=== PATIENT | female | born 1960 | race Caucasian/White ===

== ENCOUNTER 2016-09-07 14:45 | Emergency (ER) | payer MEDICARE, MEDICAID ==
[~2016-09-07] VITALS: Ht 162.6 cm; Wt 84.1 kg
[2016-09-07 14:49] VITALS: BP 101/42; PULSE 86; RESP 15; O2SAT 94
--- NOTE | 2016-09-07 15:06 | ED.REPORT ---
HPI-General Illness Date of Service Sep 07, 2016 ED Provider: Dr. Lozano Pt is a 56 y/o female presenting to the ED via EMS from [facility] where she is rehabbing from a hip fracture suffered 4 weeks ago for AMS 4 hours ago. The patient's relates that shortly after administration of her noon meds which include Gabapentin, Oxycodone, and Oxycontin she became quite agitated and combative, saying that her and care givers were trying to poison her and expressing confusion about where she was and why she was not at home. The patient's mentation cleared gradually over the course of the next few hours. She has full recollection of the event, and feels somewhat sheepish about her behavior. She denies chest pain, dysuria, alterations in bowel or bladder habits, SOB, headache, or changes in vision or sensation. She states that she currently feels well and is anxious to leave the hospital. Nursing Notes Stated Complaint: CONFUSION Chief Complaint: General Complaint Nursing Notes Reviewed: Yes Allergies: Coded Allergies: Penicillins (Verified Allergy, Unknown, 09/07/16) isradipine (Verified Allergy, Unknown, 09/07/16) latex (Verified Allergy, Unknown, 09/07/16) General Time Seen by MD: 15:06 Transferred From: snf Chief Complaint Altered mental status Hx Obtained From: Patient, Spouse Arrived By: Ambulance Sudden in Onset?: Yes Onset Occurred: 1 - 4 hours ago Symptom Duration: 16 - 30 minutes Severity: Current: Moderate Severity: Maximum: Severe Recent Healthcare: Recent hospitalization Similar Sx Previous: No Past Medical History Past Medical History Hypertension Anxiety Chronic pain DM2 Hip Fracture Review of Systems Full Review of Systems Musculoskeletal: Reports: Joint pain Psychiatric: Reports: Agitation Complete sys rev & neg: except as marked. Physical Exam Gen: A/O x3 pleasant cooperative somewhat frustrated woman in NAD Neck: Supple, non tender, no thyromegaly HEENT: PERRL, EOMI, mucous membranes dry, moderate conjunctival pallor CV: RRR, mild 2/6 systolic ejection murmur, no rubs or gallops Resp: Lungs CTA BL, no wheezing rales rhonchi Abdomen: Soft, non tender, no organomegaly Extr: Large bruise on L upper arm, no cyanosis clubbing or edema, healing surgical scar on Left hip Neuro: CN 2-12 intact, mild nasal labial fold asymmetry which could be dependent due to chronic left leaning, no focal neurologic deficit, Strength and sensation intact BL with the exception of right leg secondary to fracture. Psych: Somewhat nervous and anxious to leave the hospital. Vital Signs Vital Signs Date Time Temp Pulse Resp B/P Pulse Ox O2 Delivery O2 Flow Rate FiO2 09/07/16 18:36 91 136/92 95 Room Air 09/07/16 18:33 91 136/92 95 Room Air 09/07/16 17:39 87 12 116/38 95 Room Air 09/07/16 14:49 36.5 86 15 101/42 94 Room Air Initial VS: Reviewed Interpretation & Diagnostics Lab Results Interpretation Result Diagram: 09/07/16 1525 09/07/16 1532 Test 09/07/16 15:25 09/07/16 15:32 09/07/16 17:29 White Blood Count 13.9th/mm3 (3.8-10.1) Red Blood Count 2.48mil/mm3 (3.90-5.20) Hemoglobin 7.3g/dL (12.0-15.6) Hematocrit 24.9% (35.0-46.0) Mean Corpuscular Volume 100.4fL (81-100) Mean Corpuscular Hemoglobin 29.4pg (27.0-35.0) Mean Corpuscular Hemoglobin Concent 29.3% (32.0-37.0) Red Cell Distribution Width 13.6% (12.3-15.4) Platelet Count 476bil/L (150-400) Neutrophils (%) (Auto) 61.8% (40-74) Lymphocytes (%) (Auto) 24.1% (14-46) Monocytes (%) (Auto) 9.5% (4-12) Eosinophils (%) (Auto) 3.8% (0-5) Basophils (%) (Auto) 0.4% (0-3) Sodium Level 142mEq/L (134-144) Potassium Level 5.2mEq/L (3.5-5.2) Chloride Level 106mEq/L (97-108) Carbon Dioxide Level 23mmol/L (18-29) Blood Urea Nitrogen 30mg/dL (6-24) Creatinine 1.39mg/dL (0.57-1.00) Estimat Glomerular Filtration Rate 56mL/min (>59) Glucose Level 189mg/dL (60-99) Calcium Level 8.6mg/dL (8.5-10.1) Total Bilirubin 0.2mg/dL (0.0-1.2) Aspartate Amino Transf (AST/SGOT) 45U/L (0-50) Alanine Aminotransferase (ALT/SGPT) 45U/L (0-32) Alkaline Phosphatase 140U/L (25-150) Total Protein 5.0g/dL (6.4-8.4) Albumin 2.2g/dL (3.4-5.0) Hold [place] Top Tube Received (Received) Urine Color Yellow (YELLOW) Urine Appearance Clear (CLEAR,HAZY) Urine pH 5.5 (5.0-8.0) Urine Specific [place] 1.025 (1.003-1.035) Urine Protein 100mg/dL (NEG,TRACE) Urine Glucose (UA) Negativemg/dL (NEGATIVE) Urine Ketones Negativemg/dL (NEGATIVE) Urine Occult Blood Small (NEGATIVE) Urine Nitrite Negative (NEGATIVE) Urine Bilirubin Negative (NEGATIVE) Urine Urobilinogen Normalmg/dL (NORMAL) Urine Leukocyte Esterase Negative (NEGATIVE) Urine RBC 3-10/hpf (0-2) Urine WBC 0-5/hpf (0-5) Urine Epithelial Cells Few/hpf (NONE-MOD) Urine Crystals None seen (NONE SEEN) Urine Bacteria Moderate/hpf (NONE-FEW) Urine Hyaline Casts None/lpf (NONE) Urine Granular Casts None seen (NONE SEEN) Urine Waxy Casts None seen (NONE SEEN) Urine Red Blood Cell Casts None seen (NONE SEEN) Urine White Blood Cell Casts None seen (NONE SEEN) Urine Mucus None seen (None Seen) Urine Trichomonas None seen (NONE SEEN) Urine Yeast None (NONE SEEN) Urinalysis Comment Amorphous sediment Urine Culture Reflexed Indicated Lab Results Interpretation: Significant likely iron deficiency anemia, chronic and unchanged from CBC taken 1 week ago. Thrombocytosis likely due to iron deficiency Re-Eval/Medical Decision Med Decision/Clinical Course Patient with presenting post acute episode of AMS, Patient has full recollection of the event and no lingering deficit which would render a Head CT low yield. Remainder of laboratory examination unremarkable or unchanged from baseline, she does have very significant iron deficiency anemia but is refusing a blood transfusion and IV iron despite counseling the her PO iron is unlikely to be well absorbed given her history of gastric bypass. Overall her presentation is consistent with adverse reaction to opiate analgesia , she may benefit from an alteration in her dosing, frequency, or specific medication used to control her pain. We recommend that she follows up with her primary care provider for optimization of her analgesia regimen. Patient was given Follow up instructions and return precautions prior to DC. Counseled Regarding: Diagnosis, Lab results, Need for follow-up, When/why to return to ED Discharge & Departure Shift Change Sign-Out Patient Care Transferred: No Discussed Complaint(s): Yes Laboratory Evaluation: Lab evaluation discussed Primary Impression: Adverse drug reaction Encounter type: initial encounter Qualified Code: T88.7XXA - Unspecified adverse effect of drug or medicament, initial encounter Disposition: Home Discharge Condition All VS Reviewed: Yes Condition: Stable Patient Instructions: Pain Management and Opioids (ED) Additional Instructions: It appears that you have had an bad reaction to your pain meds. We recommend that you limit you dosing to 5 mg of oxycodone per dosing until you speak with the doctor who provides you with your opiate prescriptions. We recommend alteration of the dosing, frequency, or type of pain medication used in order to avoid similar episodes in the future. If you experience any difficulties in speech or vision, asymmetry in your face, weakness or tingling on one side of your body, or any concerning changes in mentation please return to the ER for further evaluation. Referrals: Shasha Sharif PA-C (PCP) Verna Attestation Portions of this note were transcribed by Jem Johnson. I, Dr. Lozano, personally performed the history, physical exam and medical decision-making; I reviewed and confirmed the accuracy of the information in the transcribed note. Signed by Verna Kebede, 09/07/16 - 1520 Attending Statement The patient was seen and examined together with Dr. Hines on 09/08/16 I agree with the history, exam and plan as outlined in the note above. copies to: Shasha Sharif PA-C, Timothy Chuy WILHELM Sep 07, 2016 15:06 JEM JOHNSON Sep 07, 2016 15:13 Lazaro Hines DO Sep 07, 2016 16:12
[2016-09-07 15:32] LABS: BASOPHILS % (AUTO) 0.4 % (0-3); EOSINOPHILS % (AUTO) 3.8 % (0-5); MONOCYTES % (AUTO) 9.5 % (4-12); Mean Corpuscular Hemoglobin 29.4 pg (27.0-35.0); Mean Corpuscular Volume 100.4 fL (81-100); NEUTROPHILS % (AUTO) 61.8 % (40-74); Platelet Count 476 bil/L (150-400)
--- NOTE | 2016-09-07 15:40 | DRSVH ---
PROCEDURE: X-RAY CHEST ONE VIEW, PORTABLE ([id number]) INDICATIONS: change in mentation TECHNIQUE: One view of the chest was acquired. COMPARISON: [facility], CR, XR CHEST 1V PORTABLE, 01/26/2016, 7:55 PM. FINDINGS: Surgical changes and devices: There is cervical spine fusion. Lungs and pleura: No pleural effusions or pneumothorax. Lungs are clear. Mediastinum: Mediastinal contours appear normal. Heart size is normal. Bones and chest wall: No suspicious bony lesions. Overlying soft tissues appear unremarkable. IMPRESSION: No acute cardiopulmonary disease. Dictated by: Sharon Brink M.D. on 09/07/2016 at 15:30 Approved by: Sharon Brink M.D. on 09/07/2016 at 15:31
[2016-09-07 17:39] VITALS: BP 116/38; PULSE 87; RESP 12; O2SAT 95
[2016-09-07 17:48] LABS: APPEARANCE,URINE CLEAR (CLEAR,HAZY); COLOR,URINE YELLOW (YELLOW); OCCULT BLOOD,URINE SMALL (NEGATIVE); PH,URINE 5.5 (5.0-8.0)
[2016-09-07 17:49] LABS: UROBILINOGEN,URINE NORMAL (NORMAL)
[2016-09-07 18:33] VITALS: BP 136/92; PULSE 91; O2SAT 95
[2016-09-07 18:36] VITALS: BP 136/92; PULSE 91; O2SAT 95
== END 2016-09-07 18:37 | disposition home or self-care (01) ==
LOC: SED 14:45 → EDBD 14:45 → SED 18:37
DX: R41.82 Altered mental status, unspecified (principal); R45.1 Restlessness and agitation; R41.0 Disorientation, unspecified; T43.8X5A Adverse effect of other psychotropic drugs, initial encounter; T40.2X5A Adverse effect of other opioids, initial encounter; Y93.89 Activity, other specified; Y92.89 Other specified places as the place of occurrence of the external cause; Y99.8 Other external cause status; I10 Essential (primary) hypertension; E11.9 Type 2 diabetes mellitus without complications; Z88.0 Allergy status to penicillin; Z88.8 Allergy status to other drugs, medicaments and biological substances; Z91.040 Latex allergy status

== ENCOUNTER 2016-12-15 06:34 | Inpatient (IN) | payer MEDICARE, MEDICAID ==
[2016-12-15] VITALS (12 sets, daily range): BP systolic 115–188; BP diastolic 52–103; PULSE 83–118; RESP 15–20; O2SAT 89–97
[~2016-12-15] VITALS: Ht 163.8 cm; Wt 78.3 kg
--- NOTE | 2016-12-15 06:39 | ED.REPORT ---
HPI-General Illness Date of Service Dec 15, 2016 ED Provider: Kiel Lozano MD The pt is a 56 y/o female w/ a hx of diabetes and HTN presenting to the ED complaining of general unwellness onset two days ago. She is experiencing nausea , thick black diarrhea, dysuria, chills, urinary incontinence, and reports having the beginning of an UTI. Denies fever, SOB. The pt's son had a recent head cold and she also had hip surgery in October, was in [facility] for 3 months, and was released 5 weeks ago. Nursing Notes Stated Complaint: WEAKNESS Chief Complaint: Not feeling well Nursing Notes Reviewed: Yes Allergies: Coded Allergies: Penicillins (Verified Allergy, Unknown, 09/07/16) isradipine (Verified Allergy, Unknown, 09/07/16) latex (Verified Allergy, Unknown, 09/07/16) sulfamethoxazole (Verified Allergy, Unknown, hyperkalemia, 12/15/16) trimethoprim (Verified Allergy, Unknown, hyperkalemia, 12/15/16) Miscellaneous Medications Hydrochlorothiazide (Hydrochlorothiazide) 12.5 Mg Tablet Hydromorphone (Hydromorphone) 2 Mg Tablet Insulin Glargine,Hum.rec.anlog (Toujeo Solostar) 300 Unit/Ml (1.5 Ml) Insuln.pen Losartan Potassium (Losartan Potassium) 25 Mg Tablet Lovastatin (Lovastatin) 20 Mg Tablet Nortriptyline (Nortriptyline) 75 Mg Capsule Sitagliptin Phos (Januvia) 100 Mg Tablet Tizanidine (Tizanidine) 4 Mg Tablet Venlafaxine ER (Venlafaxine ER) 150 Mg Cap.er.24h hydrOXYzine Hcl (HydrOXYzine Hcl) 25 Mg Tablet oxyCODONE (oxyCODONE) 5 Mg Tablet oxyCODONE-Acetaminophen 7.5-325 mg (oxyCODONE-Acetaminophen 7.5-325 mg) 1 Each Tablet General Time Seen by MD: 06:38 Chief Complaint Not feeling well Hx Obtained From: Patient Arrived By: Walk-in Sudden in Onset?: Yes Onset Occurred: 2 days ago Symptom Duration: Since onset Recent Healthcare: No recent hospitalization, Recent doctor visit Past Medical History Past Medical History Hypertension Anxiety Chronic pain DM2 Hip Fracture Past Surgical History Hip surgery Smoking History Unknown if Ever Smoker Social History Other Social History: Good social support Ambulatory Status Independent Review of Systems Full Review of Systems Constitutional: Reports: Chills, Denies: Fever Respiratory: Denies: Shortness of breath GI: Reports: Diarrhea, Nausea Female: Reports: Dysuria, Incontinence Complete sys rev & neg: except as marked. Physical Exam Vital Signs Vital Signs Date Time Temp Pulse Resp B/P Pulse Ox O2 Delivery O2 Flow Rate FiO2 12/15/16 09:19 91 15 152/70 96 Room Air 12/15/16 08:02 95 20 142/70 97 Room Air 12/15/16 06:39 37.4 98 20 134/52 Room Air Initial VS: Reviewed General/Constitutional: Awake, Alert Appearance / Presentation: Positive: Obese, Pale Head / Eyes: Atraumatic, Normocephalic ENT: Atraumatic, Airway patent, Mucous membranes moist Neck: Atraumatic, Full range of motion Respiratory / Chest: Atraumatic, Breath sounds NL, Breath sounds = bilat, No respiratory distress, No rales, No rhonchi, No wheezing Cardiovascular: Heart rate NL, Regular rhythm, Heart sounds NL Abdomen: Soft Tenderness/Guarding/Rebound: Positive: Tender suprapubic Back: Atraumatic, Full range of motion Upper Extremities Upper Extremity / MS: Atraumatic, Inspection NL, Full range of motion Lower Extremity / Pelvis / MS: Atraumatic, Inspection NL, Full range of motion Skin: No rash, Warm, Dry Rectum / Perineum: Atraumatic, No gross blood Brown stools Guaiac negative Neurologic: Oriented X3, Speech NL Psychiatric: Affect NL, Mood NL Interpretation & Diagnostics Lab Results Interpretation Result Diagram: 12/15/16 0715 12/15/16 0715 Test 12/15/16 07:08 12/15/16 07:15 Urine Color Yellow (YELLOW) Urine Appearance Slightly cloudy Urine pH 6.0 (5.0-8.0) Urine Specific [place] 1.020 (1.003-1.035) Urine Protein 300mg/dL (NEG,TRACE) Urine Glucose (UA) Negativemg/dL (NEGATIVE) Urine Ketones Negativemg/dL (NEGATIVE) Urine Occult Blood Moderate (NEGATIVE) Urine Nitrite Negative (NEGATIVE) Urine Bilirubin Negative (NEGATIVE) Urine Urobilinogen Normalmg/dL (NORMAL) Urine Leukocyte Esterase Moderate (NEGATIVE) Urine RBC 3-10/hpf (0-2) Urine WBC >50/hpf (0-5) Urine Epithelial Cells Occasional/hpf (NONE-MOD) Urine Crystals None seen (NONE SEEN) Urine Bacteria Many/hpf (NONE-FEW) Urine Hyaline Casts None/lpf (NONE) Urine Granular Casts None seen (NONE SEEN) Urine Waxy Casts None seen (NONE SEEN) Urine Red Blood Cell Casts None seen (NONE SEEN) Urine White Blood Cell Casts None seen (NONE SEEN) Urine Mucus None seen (None Seen) Urine Trichomonas None seen (NONE SEEN) Urine Yeast None (NONE SEEN) Urinalysis Comment None Urine Culture Reflexed Indicated White Blood Count 38.3th/mm3 (3.8-10.1) Red Blood Count 3.94mil/mm3 (3.90-5.20) Hemoglobin 11.5g/dL (12.0-15.6) Hematocrit 35.5% (35.0-46.0) Mean Corpuscular Volume 90.1fL (81-100) Mean Corpuscular Hemoglobin 29.2pg (27.0-35.0) Mean Corpuscular Hemoglobin Concent 32.4% (32.0-37.0) Red Cell Distribution Width 14.3% (12.3-15.4) Platelet Count 211bil/L (150-400) Neutrophils (%) (Auto) 80.1% (40-74) Lymphocytes (%) (Auto) 8.3% (14-46) Monocytes (%) (Auto) 10.5% (4-12) Eosinophils (%) (Auto) 0% (0-5) Basophils (%) (Auto) 0.2% (0-3) Sodium Level 142mEq/L (134-144) Potassium Level 4.8mEq/L (3.5-5.2) Chloride Level 104mEq/L (97-108) Carbon Dioxide Level 20mmol/L (18-29) Blood Urea Nitrogen 35mg/dL (6-24) Creatinine 1.46mg/dL (0.57-1.00) Estimat Glomerular Filtration Rate 53mL/min (>59) Glucose Level 150mg/dL (60-99) Lactic Acid Level 1.2mmol/L (0.4-2.0) Calcium Level 9.2mg/dL (8.5-10.1) Magnesium Level 1.4mg/dL (1.6-2.6) Total Bilirubin 0.5mg/dL (0.0-1.2) Aspartate Amino Transf (AST/SGOT) 46U/L (0-50) Alanine Aminotransferase (ALT/SGPT) 44U/L (0-32) Alkaline Phosphatase 157U/L (25-150) Troponin T 0.010ug/L (0.0-0.011) Total Protein 5.6g/dL (6.4-8.4) Albumin 2.9g/dL (3.4-5.0) ECG Interpretation ECG Interpretation: Sinus rhythm Rate 92 L axis deviation No ST changes Unchanged from previous EKG done on 09/07/16 Time: 07:50 Interpreted by: ED physician X-Ray Chest Interpretation Chest Xray Interpretation: IMPRESSION: 1. No acute cardiopulmonary disease. Dictated by: Ricardo Cooley M.D. on 12/15/2016 at 9:03 Approved by: Ricardo Cooley M.D. on 12/15/2016 at 9:03 View: Portable, 1 view Interpretation / Wet Read by: Interpret - Radiologist CT Abd / Pelvis Interpretation IMPRESSION: 1. Prominent perirenal inflammation with mild enlargement of the bilateral ureters and a slight thickening of the wall of the urinary bladder is suspicious for pyelonephritis/ascending urinary tract infection. Please correlate clinically. 2. Large stool within the rectum may represent early fecal impaction. There is no bowel obstruction. 3. Scarring versus atelectasis within the lung bases. 4. Small fat-containing supraumbilical ventral hernia. 5. Coronary and aortic atherosclerosis. 6. Normal appendix. Dictated by: Milind Jean M.D. on 12/15/2016 at 8:25 Approved by: Milind Jean M.D. on 12/15/2016 at 8:31 Study type: Abdominal CT no contrast Interpretation / Wet Read by: Interpret - Radiologist Re-Eval/Medical Decision Med Decision/Clinical Course Sepsis from pyelonephritis, additionally has a diarrheal illness which is concerning for C. difficile colitis. Will admit. Source of Hx: Old records Time of Eval: 08:44 Re-Evaluation/Progress Note: Pt rechecked. Informed pt of need for admission. Pt understands and agrees with plan for admission. All questions addressed. Counseled Regarding: Diagnosis, Lab results, Need for admission Discharge & Departure Primary Impression: Sepsis Sepsis type: sepsis due to unspecified organism Qualified Code: A41.9 - Sepsis, unspecified organism Additional Impressions: Urinary tract infection Urinary tract infection type: site unspecified Hematuria presence: without hematuria Qualified Code: N39.0 - Urinary tract infection, site not specified Diarrhea Diarrhea type: unspecified type Qualified Code: R19.7 - Diarrhea, unspecified Disposition: ADMITTED TO HOSPITAL Discharge Condition All VS Reviewed: Yes Condition: Stable Referrals: Shasha Sharif PA-C (PCP) Scribe Attestation Portions of this note were transcribed by Sebastian Garza. I, Dr. Lozano personally performed the history, physical exam and medical decision-making; I reviewed and confirmed the accuracy of the information in the transcribed note. Signed by : Verna Patrick, 12/15/16 and 1914. copies to: Shasha Sharif PA-C, Timothy S DO Dec 15, 2016 06:38 Sebastian Garza Dec 15, 2016 07:06
[2016-12-15] MEDS ORDERED: HYDR2TAB28 (06:53)
[2016-12-15] MEDS ORDERED: LOVA20TA PO (06:53)
[2016-12-15] MEDS ORDERED: VENL150C98 PO (06:53)
[2016-12-15] MEDS ORDERED: OXYC-465 (06:53)
[2016-12-15] MEDS ORDERED: TIZA4TAB4 PO (06:53)
[2016-12-15] MEDS ORDERED: HYDR12.55 PO (06:53)
[2016-12-15] MEDS ORDERED: INSU300I SC (06:53)
[2016-12-15] MEDS ORDERED: LOSA25TA21 PO (06:53)
[2016-12-15] MEDS ORDERED: OXYC5TAB72 PO (06:53)
[2016-12-15] MEDS ORDERED: SITA100T12 PO (06:53)
[2016-12-15] MEDS ORDERED: NORT75CA PO (06:53)
[2016-12-15] MEDS ORDERED: HYDR-656 PO (06:53)
[2016-12-15] MEDS ORDERED: 0.9% Sodium Chloride 1,000 ML IV ONE (06:57)
[2016-12-15 07:35] LABS: BASOPHILS % (AUTO) 0.2 % (0-3); EOSINOPHILS % (AUTO) 0 % (0-5); MONOCYTES % (AUTO) 10.5 % (4-12); Mean Corpuscular Hemoglobin 29.2 pg (27.0-35.0); Mean Corpuscular Volume 90.1 fL (81-100); NEUTROPHILS % (AUTO) 80.1 % (40-74); Platelet Count 211 bil/L (150-400)
[2016-12-15 08:01] LABS: APPEARANCE,URINE SLIGHTLY CLOUDY (CLEAR,HAZY); COLOR,URINE YELLOW (YELLOW); OCCULT BLOOD,URINE MODERATE (NEGATIVE); UROBILINOGEN,URINE NORMAL (NORMAL)
[2016-12-15 08:02] LABS: TROPONIN T 0.01 ug/L (0.0-0.011)
[2016-12-15 08:20] LABS: Magnesium 1.4 mg/dL (1.6-2.6)
[2016-12-15] MEDS ORDERED: cefTRIAXone Inj 2,000 MG in Dextrose 5% Minibag Plus 50 ML IV ONE (08:30)
[2016-12-15] MEDS ORDERED: Magnesium Sulf 4 Gm/100 mL H2O 4 GM in IV Premix 1 EACH IV ONE (08:50)
--- NOTE | 2016-12-15 09:05 | DRSVH ---
PROCEDURE: X-RAY CHEST ONE VIEW, PORTABLE ([id number]) INDICATIONS: generalized weakness TECHNIQUE: One view of the chest was acquired. COMPARISON: [facility], CR, XR CHEST 1VW (PORTABLE), 09/07/2016, 15:19. FINDINGS: Surgical changes and devices: There are postsurgical changes in the lower cervical spine with a surgi lisa fixation plate redemonstrated. Lungs and pleura: No pleural effusions or pneumothorax. Lungs are clear. Mediastinum: Mediastinal contours appear unchanged. Heart size is normal. Bones and chest wall: No suspicious bony lesions. Overlying soft tissues appear unremarkable. IMPRESSION: 1. No acute cardiopulmonary disease. Dictated by: Ricardo Cooley M.D. on 12/15/2016 at 9:03 Approved by: Ricardo oColey M.D. on 12/15/2016 at 9:03
[2016-12-15] MEDS ORDERED: Alum-Mag Hydrox-Simeth 30 mL Suspension PO PRN (09:10)
--- NOTE | 2016-12-15 09:33 | DRSVH ---
PROCEDURE: CT ABDOMEN AND PELVIS WITHOUT CONTRAST ([id number]) INDICATIONS: leukocytosis lower abd pain TECHNIQUE: Noncontrast 5 mm thick sections acquired from the diaphragms to the symphysis. 5 mm coronal and sagi ttal reformats were then performed. For radiation dose reduction, the following was used: automated exposure control, adjustment of mA and/or kV according to patient size. COMPARISON: None. FINDINGS: Image quality: Diagnostic. ABDOMEN: Lung bases: Mild scar versus atelectasis is seen within the lung bases. The heart is normal in size with a tiny pericardial effusion. Coronary artery atherosclerosis is present. Solid organs: The liver, spleen, adrenals, and pancreas appear to be within normal limits on a noncon trast CT. There is prominent perinephric stranding evident involving both kidneys (left much greater than right). Prominence of the ureters also appears to be present with questionable urothelial thic kening. No convincing renal or ureteral calculi are evident. Peritoneum and bowel: Postsurgical changes of the stomach are present, suggesting prior gastric bypas s procedure. Small bowel loops are nondilated. There is a large amount of stool seen within the rec praveena. No evidence to suggest a bowel obstruction is present. There is a small fat containing supraum bilical ventral hernia. The appendix is well-visualized and normal. There may be a small amount sanchez e fluid within the left paracolic gutter. There is no loculated fluid collection or free air. No si gnificant mesenteric edema is identified. Nodes and vessels: No retroperitoneal or mesenteric adenopathy by size criteria. Aorta and inferior vena cava are normal in caliber. There are atherosclerotic changes noted involving the aorta and il iac vessels. Bones: No acute fracture or suspicious osseous lesion is evident. Age-appropriate degenerative haque es throughout the thoracolumbar spine are present. There is grade 1/2 anterolisthesis of L5 on S1, w hich appears to be related to bilateral L5 pars defects. PELVIS: Genitourinary: There may be mild bladder wall thickening. No bladder calculi are evident. The uteru s and ovaries do not appear to be enlarged. Miscellaneous: No inguinal hernias or adenopathy. No free fluid, loculated fluid collection or free air is evident within the pelvis. Bones: No suspicious bony lesions. No acute pelvic fractures are evident. Surgical changes of the right hip are not well evaluated on this exam. There are mild degenerative changes of the sacroiliac joints and bilateral hips. IMPRESSION: 1. Prominent perirenal inflammation with mild enlargement of the bilateral ureters and a slight thic kening of the wall of the urinary bladder is suspicious for pyelonephritis/ascending urinary tract in fection. Please correlate clinically. 2. Large stool within the rectum may represent early fecal impaction. There is no bowel obstruction . 3. Scarring versus atelectasis within the lung bases. 4. Small fat-containing supraumbilical ventral hernia. 5. Coronary and aortic atherosclerosis. 6. Normal appendix. Dictated by: Milind Jean M.D. on 12/15/2016 at 8:25 Approved by: Milind Jean M.D. on 12/15/2016 at 8:31
[2016-12-15] MEDS: Ondansetron 2 mg/mL 2 mL Inj IVPUSH PRN (10:37)
--- NOTE | 2016-12-15 11:35 | NUR ---
Admit [facility] rm [id number] from ED A&O pt arrived to unit at 1135. Pt c/o abd pain 03/21, states morphine recd in ED was not effective. Alan at bedside along with pts service dog Saima. Pt states to live at home, ambulates using a FWW. 2 weeks ago had a fall. Fx of R hip in October d/t fall. Pt oriented to room and facility. VS taken, low grade temp and tachycardia noted, relayed to MD. On tele,box 39. Bed in low position,upper rails up, call light withing reach. MD to see pt. Admit to be completed. Will continue to monitor.
[2016-12-15] MEDS: 0.9% Sodium Chloride 1,000 ML IV SCH ×2 (12:47→16:18)
[2016-12-15] MEDS ORDERED: Glucose 40% Oral Gel 15 Gm Tube PO PRN (13:25)
[2016-12-15] MEDS: HYDROmorphone 1 mg/mL Inj IVPUSH PRN ×2 (13:45→20:07)
[2016-12-15] MEDS ORDERED: GABA600T2 PO (13:56)
[2016-12-15] MEDS ORDERED: TRAZ-115 PO (13:56)
--- NOTE | 2016-12-15 14:20 | NUR ---
Admit nurse note Pt. admission assessment completed with 's assistance. Pt. is fatigued and forgetful. fills in details and pharmacy is used to verify medication frequencies. Pt. medication history is slightly different and she gets mixed up between medications when giving history. Meds entered per pharmacy with notes regarding pt.'s report. Pt. oriented to room, call bynum and fall precautions. is at bedside. states he will bring in POLST when he is able. Sleep apnea protocol initiated per pt. risk factors. Skin protection measures implemented due to pt.'s lack of activity and moist skin. Report given to Rn. Addendum: 12/15/16 at 1428 by MELVIN KINCAID RN Report given to Florentin Vicente.
--- NOTE | 2016-12-15 14:38 | PCM.HPMED ---
Subjective Date of Service Dec 15, 2016 Primary Provider: Admitting Physician: Edgar Wells MD Primary Care Physician: Shasha Sharif PA-C Attending Physician: Edgar Wells MD Admit Status: From the Emergency Department, Full Admit Chief Complaint: weakness/fatigue History of Present Illness: Catia is a 56-year-old female known history of type II diabetes insulin- dependent hypertension, morbid obesity with previous gastric bypass who presented to the emergency department with generally feeling unwell for the last 1-2 days. Patient has complained of suprapubic discomfort as well as bilateral flank pain. She denies any fevers had has occasional chills has also felt nauseous no vomiting. Patient also has had diarrhea however she states is a chronic issue for her nothing new she denies any hematemesis hematochezia or hemoptysis. Patient has complained of increased urinary frequency urgency. Otherwise a complete evaluation was done in the emergency department she was found to have a significantly elevated WBC. Also a CT scan was performed that did show suspected pyelonephritis. Patient did also have a criteria indicating that she was septic. Considering her findings hospice were asked to admit the patient further management and evaluation. Review of Systems: Patient denies any headache vision disturbances dysphagia has any intolerance to hot or cold temperatures denies any feelings of depression. Denies any swelling in the extremities no orthopnea no PND no chest pain shortness of breath or palpitations. A complete review review of systems was conducted. Pertinent positives and negatives listed as per history of present illness. Allergies Coded Allergies: Penicillins (Verified Allergy, Intermediate, Hives, 12/15/16) latex (Verified Allergy, Intermediate, Rash, 12/15/16) sulfamethoxazole (Verified Allergy, Unknown, hyperkalemia, 12/15/16) trimethoprim (Verified Allergy, Unknown, hyperkalemia, 12/15/16) isradipine (Verified Adverse Reaction, Severe, hyperkalemia, 12/15/16) Home Medications Gabapentin 600 mg 3 times a day Hydrochlorothiazide 12.5 mg daily Hydroxyzine 50 mg nightly Insulin glargine 20 units nightly Losartan 25 mg twice a day Lovastatin 20 mg daily Nortriptyline 75 mg daily Oxycodone 5 mg 3 times a day when necessary pain Januvia 50 mg daily Tizanidine 4 mg 3 times a day Trazodone 50 mg nightly Venlafaxine 150 mg in release daily PMH Hypertension Type II diabetes insulin-dependent Morbid obesity Chronic neck pain Anxiety and depression Surgical History History of cervical C4 to C7 Right hip fracture with repair Gastric bypass Family History chronic pain in her father Patient denies any other pertinent family history Social History Hx Alcohol Use: No (none now) Hx Substance Use: No Hx Tobacco Use: No Smoking Status: Unknown if Ever Smoker Living Arrangement: with Family Exam Vital Signs Vital Sign - Last Date Time Temp Pulse Resp B/P Pulse Ox O2 Delivery O2 Flow Rate FiO2 12/15/16 12:57 38.9 110 20 184/97 96 Room Air Exam General: Mild distress cooperative HEENT: Head is atraumatic normocephalic neck is supple, trachea midline, or mucosa is moist Lungs: Clear to auscultation bilaterally, no wheezing, no crackles Cardiovascular: S1-S2 present regular rate and rhythm Abdomen: Suprapubic tenderness, bilateral CVA tenderness, no rebound no guarding Extremities: No swelling no tenderness Psychiatric: Appropriate mood and affect Neurological: Patient is alert and oriented 3 sensation to light touch is intact throughout no focal deficits Lab and Diagnostics Labs Laboratory Tests Test 12/15/16 07:08 12/15/16 07:15 Urine Color Yellow (YELLOW) Urine Appearance Slightly cloudy Urine pH 6.0 (5.0-8.0) Urine Specific [place] 1.020 (1.003-1.035) Urine Protein 300mg/dL (NEG,TRACE) Urine Glucose (UA) Negativemg/dL (NEGATIVE) Urine Ketones Negativemg/dL (NEGATIVE) Urine Occult Blood Moderate (NEGATIVE) Urine Nitrite Negative (NEGATIVE) Urine Bilirubin Negative (NEGATIVE) Urine Urobilinogen Normalmg/dL (NORMAL) Urine Leukocyte Esterase Moderate (NEGATIVE) Urine RBC 3-10/hpf (0-2) Urine WBC >50/hpf (0-5) Urine Epithelial Cells Occasional/hpf (NONE-MOD) Urine Crystals None seen (NONE SEEN) Urine Bacteria Many/hpf (NONE-FEW) Urine Hyaline Casts None/lpf (NONE) Urine Granular Casts None seen (NONE SEEN) Urine Waxy Casts None seen (NONE SEEN) Urine Red Blood Cell Casts None seen (NONE SEEN) Urine White Blood Cell Casts None seen (NONE SEEN) Urine Mucus None seen (None Seen) Urine Trichomonas None seen (NONE SEEN) Urine Yeast None (NONE SEEN) Urinalysis Comment None Urine Culture Reflexed Indicated White Blood Count 38.3th/mm3 (3.8-10.1) Red Blood Count 3.94mil/mm3 (3.90-5.20) Hemoglobin 11.5g/dL (12.0-15.6) Hematocrit 35.5% (35.0-46.0) Mean Corpuscular Volume 90.1fL (81-100) Mean Corpuscular Hemoglobin 29.2pg (27.0-35.0) Mean Corpuscular Hemoglobin Concent 32.4% (32.0-37.0) Red Cell Distribution Width 14.3% (12.3-15.4) Platelet Count 211bil/L (150-400) Neutrophils (%) (Auto) 80.1% (40-74) Lymphocytes (%) (Auto) 8.3% (14-46) Monocytes (%) (Auto) 10.5% (4-12) Eosinophils (%) (Auto) 0% (0-5) Basophils (%) (Auto) 0.2% (0-3) Sodium Level 142mEq/L (134-144) Potassium Level 4.8mEq/L (3.5-5.2) Chloride Level 104mEq/L (97-108) Carbon Dioxide Level 20mmol/L (18-29) Blood Urea Nitrogen 35mg/dL (6-24) Creatinine 1.46mg/dL (0.57-1.00) Estimat Glomerular Filtration Rate 53mL/min (>59) Glucose Level 150mg/dL (60-99) Lactic Acid Level 1.2mmol/L (0.4-2.0) Calcium Level 9.2mg/dL (8.5-10.1) Magnesium Level 1.4mg/dL (1.6-2.6) Total Bilirubin 0.5mg/dL (0.0-1.2) Aspartate Amino Transf (AST/SGOT) 46U/L (0-50) Alanine Aminotransferase (ALT/SGPT) 44U/L (0-32) Alkaline Phosphatase 157U/L (25-150) Troponin T 0.010ug/L (0.0-0.011) Total Protein 5.6g/dL (6.4-8.4) Albumin 2.9g/dL (3.4-5.0) Microbiology 12/15/16 Blood Culture, Received Pending 12/15/16 C. difficile DNA Amplification - Final, Complete 12/15/16 Urine Culture, Received Pending Result Diagram: 12/15/16 0715 12/15/16 0715 X-Rays, CTs and MRIs CT abd/pelvis IMPRESSION: 1. Prominent perirenal inflammation with mild enlargement of the bilateral ureters and a slight thickening of the wall of the urinary bladder is suspicious for pyelonephritis/ascending urinary tract infection. Please correlate clinically. 2. Large stool within the rectum may represent early fecal impaction. There is no bowel obstruction. 3. Scarring versus atelectasis within the lung bases. 4. Small fat-containing supraumbilical ventral hernia. 5. Coronary and aortic atherosclerosis. 6. Normal appendix Assessment & Plan This is a 56-year-old female known history of type II diabetes, hypertension, previous gastric bypass who presented with general weakness fatigue was found to be septic admitted with the acute pyelonephritis. Sepsis Patient is significant elevated WBCs was tachycardiac source of infection this point seems to be the urinary tract. Hemodynamically she is stable we will keep a close eye on her vital signs Blood and urine cultures are pending and will she is she will be started on broad-spectrum coverage will tailor therapy as per culture results Acute pyelonephritis CT scan of the abdomen did not show any obstruction, hydronephrosis, or collection of fluid concerning for abscess Cultures are pending, she is given Rocephin in the emergency department. Considering her presentation not she will start on broad-spectrum coverage with Levaquin with her culture results We will optimize pain control if is any worsening signs of infection or pain may need to repeat imaging will follow up on labs Acute kidney injury Most probably secondary to her septic state and dehydration. We will start her on normal saline. Avoid any nephrotoxic medications. Watch I's and O's closely. Patient is losartan will hold for now. Hypertension Patient is on multiple medications including losartan and hydrochlorothiazide at home. For the time being hold her losartan to the kidney injury. Will hold the diuretic today as well we start that tomorrow. If there are issues with worsening hypertension May start on a prn medication. Type II diabetes insulin-dependent Will start the patient on Lantus nightly. Continue a diabetic diet. Will also place on sliding scale insulin. Will optimize blood sugars. Chronic neck pain with history of C4 to C7 surgical intervention Patient seems to multiple narcotics at home. For the time being on that will hold her home narcotics. Place her on IV Dilaudid 1 mg every 4 hours when necessary. She is also on a muscle relaxant which I will continue we will optimize pain control. Chronic laboratory dysfunction Patient uses a walker at home. Will get PT involved here. She will be on fall precautions. CODE STATUS: Full Disposition: I do anticipate greater than 2 midnights in the hospital for this patient she has multiple comorbidities will await for the results were cultures follow on labs and determine further discharge planning on that. Patient does intend to return home. GI Prophylaxis: Not indicated VTE Prophylaxis: Sub-Q Heparin (Unfractionated) Resuscitation Status: CPR: Attempt Resuscitation Edgar Wells MD Dec 15, 2016 14:38
[2016-12-15] MEDS: Heparin 5,000 Unit/mL Inj SUBQ SCH (15:57)
[2016-12-15] MEDS: Insulin LISPRO 300 Unit/3 mL Inj SUBQ SCH ×2 (17:30→23:16)
[2016-12-15] MEDS: Insulin GLARgine 100 Unit/mL Syringe SUBQ SCH (21:00)
[2016-12-16] VITALS (11 sets, daily range): BP systolic 143–190; BP diastolic 79–92; PULSE 77–98; RESP 16–20; O2SAT 91–97
[2016-12-16] MEDS: Heparin 5,000 Unit/mL Inj SUBQ SCH ×3 (01:06→15:30)
[2016-12-16] MEDS: 0.9% Sodium Chloride 1,000 ML IV SCH ×3 (02:09→15:24)
[2016-12-16] MEDS: Ondansetron 2 mg/mL 2 mL Inj IVPUSH PRN (05:35)
--- NOTE | 2016-12-16 05:51 | NUR ---
PAIN/NAUSEA Pt complained of headache pain10/10 and 8/10 and of nausea. Administered Tylenol PO, effective. Administered Zofran 4mg IV push, effective. Continuing to monitor. Call light within reach, using appropriately. Frequent rounding in place. Pleasant and cooperative with care.
[2016-12-16 06:55] LABS: Mean Corpuscular Hemoglobin 29.2 pg (27.0-35.0); Mean Corpuscular Volume 90.2 fL (81-100); Platelet Count 166 bil/L (150-400)
[2016-12-16] MEDS: Insulin LISPRO 300 Unit/3 mL Inj SUBQ SCH ×4 (07:16→21:25)
[2016-12-16] MEDS ORDERED: Labetalol 5 mg/mL 20 mL Inj IVPUSH ONE (07:30)
[2016-12-16] MEDS: levoFLOXacin Inj 750 MG in IV Premix 1 EACH IV SCH (07:55)
[2016-12-16 07:59] LABS: Magnesium 1.9 mg/dL (1.6-2.6)
[2016-12-16 08:35] LABS: BASOPHILS % (AUTO) 1 % (0-3); EOSINOPHILS % (AUTO) 0 % (0-5); MONOCYTES % (AUTO) 5 % (4-12); NEUTROPHILS % (AUTO) 70 % (40-74)
--- NOTE | 2016-12-16 10:23 | PCM.PNMED ---
Subjective Date of Service Dec 16, 2016 Will Bardales is a 56-year-old female known history of type II diabetes insulin- dependent hypertension, morbid obesity with previous gastric bypass who presented to the emergency department with generally feeling unwell for the last 1-2 days. She was admitted to the hospital on 12/15/2016 for sepsis acute pyelonephritis. Has been on IV Levaquin. Her blood culture did also come back positive. Patient feels better this morning. She has minimal suprapubic discomfort so has some flank pain has been tolerating oral intake. No issues with nausea vomiting or diarrhea. Denies any chest pain or shortness of breath. Exam Vital Signs Vital Sign - Last Date Time Temp Pulse Resp B/P Pulse Ox O2 Delivery O2 Flow Rate FiO2 12/16/16 09:02 37.3 77 20 159/81 97 Room Air Intake and Output 12/15/16 12/15/16 12/16/16 Cumulative From/Thru 15:00 23:00 07:00 12/15/16 06:39 - 12/16/16 05:59 Intake Total 1000 ml 232 ml 1383 ml 2615 ml Output Total 0 ml 0 ml Balance 1000 ml 232 ml 1383 ml 2615 ml Intake Oral 150 ml 150 ml IV Total 1000 ml 82 ml 1383 ml 2465 ml Output Urine Total 0 ml 0 ml # Bowel Movements 0 0 Exam General: No acute distress, resting comfortably eating breakfast ,cooperative HEENT: Head is atraumatic normocephalic neck is supple, trachea midline, or mucosa is moist Lungs: Clear to auscultation bilaterally, no wheezing, no crackles Cardiovascular: S1-S2 present regular rate and rhythm Abdomen: mild Suprapubic tenderness, bilateral CVA tenderness, no rebound no guarding Extremities: No swelling no tenderness Psychiatric: Appropriate mood and affect Neurological: Patient is alert and oriented 3 sensation to light touch is intact throughout no focal deficits Lab and Diagnostics Result Diagram: 12/16/1654612/16/16546 X-Rays, CTs and MRIs CT abd/pelvis IMPRESSION: 1. Prominent perirenal inflammation with mild enlargement of the bilateral ureters and a slight thickening of the wall of the urinary bladder is suspicious for pyelonephritis/ascending urinary tract infection. Please correlate clinically. 2. Large stool within the rectum may represent early fecal impaction. There is no bowel obstruction. 3. Scarring versus atelectasis within the lung bases. 4. Small fat-containing supraumbilical ventral hernia. 5. Coronary and aortic atherosclerosis. 6. Normal appendix Assessment & Plan This is a 56-year-old female known history of type II diabetes, hypertension, previous gastric bypass who presented with general weakness fatigue was found to be septic admitted with the acute pyelonephritis. Sepsis Patient is significant elevated WBCs was tachycardiac, source of infection this point seems to be the urinary tract. Hemodynamically she is stable we will keep a close eye on her vital signs official Blood and urine cultures are pending and will she is she will be started on broad-spectrum coverage will tailor therapy as per culture results Gram-negative bacteremia Official cultures and sensitivities are pending I do believe the Levaquin is adequate coverage at this point she had spiked any fevers white count is improving. I think source was retracted and will wait for the official urine and blood cultures and proceed from there. Acute pyelonephritis CT scan of the abdomen did not show any obstruction, hydronephrosis, or collection of fluid concerning for abscess Cultures are pending, We will optimize pain control if is any worsening signs of infection or pain may need to repeat imaging will follow up on labs Acute kidney injury Most probably secondary to her septic state and dehydration. We will start her on normal saline. Avoid any nephrotoxic medications. Watch I's and O's closely. Patient is losartan will hold for now until kidney function normalizes. She is making urine function has improved today Hypertension Patient is on multiple medications including losartan and hydrochlorothiazide at home. For the time being hold her losartan because of the kidney injury. I did start her back on chlorthalidone. We will also put her on a when necessary medications considering her blood pressure does bump up. In further discussing with her seems like she normally runs a little high she will need this addressed on an outpatient basis. Type II diabetes insulin-dependent Will start the patient on Lantus nightly. Continue a diabetic diet. Will also place on sliding scale insulin. Will optimize blood sugars. Chronic neck pain with history of C4 to C7 surgical intervention Patient seems to multiple narcotics at home. For the time being on that will hold her home narcotics. Place her on IV Dilaudid 1 mg every 4 hours when necessary. She is also on a muscle relaxant which I will continue we will optimize pain control. Chronic ambulatory dysfunction Patient uses a walker at home. Will get PT involved here. She will be on fall precautions. CODE STATUS: Full Disposition: patients condition has improved today. Will await for the official results of the urine and blood cultures. At this time she continues to require inpatient stay for ongoing IV antibiotics and management of her ongoing comorbidities. I do anticipate several days in the hospital for her, plan is to discharge home with family. GI Prophylaxis: Not indicated VTE Prophylaxis: Sub-Q Heparin (Unfractionated) VTE Mechanical Devices: Intermittant Pneumatic CD Resuscitation Status: CPR: Attempt Resuscitation Edgar Wells MD Dec 16, 2016 10:23
[2016-12-16] MEDS: HYDROmorphone 1 mg/mL Inj IVPUSH PRN ×3 (10:44→20:13)
--- NOTE | 2016-12-16 11:02 | NUR ---
NUTRITION ASSESSMENT: ASSESS: 56YO F admit with pyelonephritis, bacteremia, acute kidney injury, sepsis. Noted pt tolerating oral intake, follows soft diet as w/o teeth at this time. History of gastric bypass/obesity. PMHX: Diabetes Type II, gastric bypass, obesity DIET: Diabetic. PO bites-50% LABS: Alb 2.9, BUN 32, Glu 110, Cr 1.25 MEDS: Reviewed GI: 2 BM 12/16 WEIGHT:77.2kg BMI: 28.8 EST.NEEDS: OVERWEIGHT (22-25kcal/kg;0.8-1.0g/kg pro) Kcal: 0632-4842 Pro: 60-80g NUTRITION DIAGNOSIS: (1) Altered GI tract function related to alteration in GI tract structure as evidenced by h/o gastric bypass. (2) Chew/swallowing issues related to dentition/missing teeth as evidenced by maximum soft diet per pt report. INTERVENTION: (1) Continue soft diet. (2) Modify to small portions, frequent meals/snacks with h/o gastric bypass. MONITOR/EVALUATE: PO intake, texture tolerance, lab values. F/U per moderate risk.
[2016-12-16] MEDS: MeTOProlol 1 mg/mL 5 mL Inj IVPUSH PRN (15:25)
--- NOTE | 2016-12-16 18:02 | NUR ---
I.S/Temp pt with I.S at bedside, lots of reminders given to use it. Pt states to understand the importance, mostly comp. O2 noted to be in low/mid 90s. Low grade temp noted, tylenol PO showed to be effective. MD aware of changes. Will continue to monitor.
[2016-12-16] MEDS: Insulin GLARgine 100 Unit/mL Syringe SUBQ SCH (21:00)
[2016-12-17] VITALS (16 sets, daily range): BP systolic 151–196; BP diastolic 74–96; PULSE 77–91; RESP 16–21; O2SAT 90–96
[2016-12-17] MEDS: HYDROmorphone 1 mg/mL Inj IVPUSH PRN ×5 (00:11→22:09)
[2016-12-17] MEDS: Heparin 5,000 Unit/mL Inj SUBQ SCH ×3 (00:11→16:34)
[2016-12-17] MEDS: 0.9% Sodium Chloride 1,000 ML IV SCH ×3 (00:20→18:33)
[2016-12-17] MEDS: Ondansetron 2 mg/mL 2 mL Inj IVPUSH PRN ×5 (00:20→20:21)
[2016-12-17 05:46] LABS: Mean Corpuscular Hemoglobin 29.1 pg (27.0-35.0)
[2016-12-17] MEDS: MeTOProlol 1 mg/mL 5 mL Inj IVPUSH PRN ×2 (06:27→16:34)
--- NOTE | 2016-12-17 07:20 | NUR ---
Blood Pressure Pt's blood pressure increased to 190/91, medicated pt with 5 mg IV metoprolol. Pt's BP decreased top 179/90 after medication admin. Report given to day RN, care continues.
[2016-12-17] MEDS: levoFLOXacin Inj 750 MG in IV Premix 1 EACH IV SCH (08:42)
[2016-12-17] MEDS: Insulin LISPRO 300 Unit/3 mL Inj SUBQ SCH ×4 (08:43→22:00)
--- NOTE | 2016-12-17 12:56 | PCM.PNMED ---
Subjective Date of Service Dec 17, 2016 Subjective Feeling better, nausea and pain (suprapubic and bilateral flank) are improving and she is less weak when up to the bathroom. Exam Vital Signs Vital Sign - Last Date Time Temp Pulse Resp B/P Pulse Ox O2 Delivery O2 Flow Rate FiO2 12/17/16 10:47 83 186/96 12/17/16 08:29 36.8 18 96 Room Air Intake and Output 12/16/16 12/16/16 12/17/16 Cumulative From/Thru 15:00 23:00 07:00 12/15/16 06:39 - 12/17/16 06:10 Intake Total 250 ml 1661 ml 1322 ml 5848 ml Output Total 200 ml 350 ml 100 ml 650 ml Balance 50 ml 1311 ml 1222 ml 5198 ml Intake Oral 250 ml 640 ml 200 ml 1240 ml IV Total 1021 ml 1122 ml 4608 ml Output Urine Total 200 ml 350 ml 100 ml 650 ml # Voids 2 1 2 5 # Bowel Movements 2 0 2 4 Exam General: Alert and oriented, no acute distress Heart: Regular Lungs: Clear Abdomen: Soft, mild suprapubic tenderness Extremities: No pedal edema IVs and Medications Medications Reviewed: Medications were reviewed in detail Lab and Diagnostics Result Diagram: 12/17/1634 12/17/16 0534 X-Rays, CTs and MRIs CT abd/pelvis IMPRESSION: 1. Prominent perirenal inflammation with mild enlargement of the bilateral ureters and a slight thickening of the wall of the urinary bladder is suspicious for pyelonephritis/ascending urinary tract infection. Please correlate clinically. 2. Large stool within the rectum may represent early fecal impaction. There is no bowel obstruction. 3. Scarring versus atelectasis within the lung bases. 4. Small fat-containing supraumbilical ventral hernia. 5. Coronary and aortic atherosclerosis. 6. Normal appendix Assessment & Plan This is a 56-year-old female known history of type II diabetes, hypertension, previous gastric bypass who presented with general weakness fatigue was found to be septic admitted with the acute pyelonephritis. Sepsis - significant elevated WBCs and tachycardiac on admission - source of infection this point seems to be the urinary tract - also positive blood cultures - Hemodynamically she is stable Acute pyelonephritis - CT scan of the abdomen: Prominent perirenal inflammation with mild enlargement of the bilateral ureters and a slight thickening of the wall of the urinary bladder is suspicious for pyelonephritis/ascending urinary tract infection. 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 - placed on IVF with normal saline, will continue another day since still some nausea - Avoid any nephrotoxic medications. - creatinine improved to 1.1 today - losartan initially held, will resume Hypertension - Systolic blood pressure 179-191 - losartan initially held, will resume - was started on chlorthalidone 25 mg daily instead of her home hydrochlorothiazide 12.5 mg daily Type II diabetes insulin-dependent -Started on Lantus nightly 15 units instead of her usual 20, patient has been refusing each night. - Glucose mostly mid 100s - Continue a diabetic diet - on sliding scale insulin Chronic neck pain with history of C4 to C7 surgical intervention - Initially held her home narcotics but should be okay to resume oral oxycodone as tolerated - IV Dilaudid 1 mg every 4 hours when necessary - Also continue Flexeril and gabapentin Chronic ambulatory dysfunction Patient uses a walker at home. Will get PT involved here. She will be on fall precautions. CODE STATUS: Full Disposition: Will be in the hospital a few more days and then as determined by Dr. Worthy. Patient does intend to return home. GI Prophylaxis: Not indicated VTE Prophylaxis: Sub-Q Heparin (Unfractionated) VTE Mechanical Devices: Intermittant Pneumatic CD Resuscitation Status: CPR: Attempt Resuscitation Cris Holliday MD Dec 17, 2016 12:56
[2016-12-17] MEDS: Ertapenem Inj 1,000 MG in 0.9% Sodium Chloride 50 ML IV SCH (14:19)
[2016-12-17] MEDS: Insulin GLARgine 100 Unit/mL Syringe SUBQ SCH (21:00)
[2016-12-17] MEDS ORDERED: HYDROXYZINE HCL 50 MG PO SCH (21:00)
[2016-12-17] MEDS ORDERED: hydrOXYzine Pamoate 25 mg Capsule PO PRN (21:00)
--- NOTE | 2016-12-17 22:36 | NUR ---
Fever pt had an episode of fever 38.6. Denies chest pain, sob. Reports of nausea. Administered Tylenol and zofran to control symptoms. Will continue to monitor. Addendum: 12/17/16 at 2256 by LEANN RICHARDSON RN reassessment, pt temp 37.4. Pt's bp is 151/74. IVF NS running 50mL/hr
[2016-12-18 00:44] VITALS: BP 175/89; PULSE 86; O2SAT 95
[2016-12-18] MEDS: Heparin 5,000 Unit/mL Inj SUBQ SCH ×3 (01:05→17:10)
[2016-12-18 04:34] VITALS: BP 178/94; PULSE 95; RESP 18; O2SAT 91
[2016-12-18] MEDS: HYDROmorphone 1 mg/mL Inj IVPUSH PRN ×2 (05:20→09:00)
[2016-12-18 05:39] VITALS: PULSE 87
[2016-12-18 06:39] LABS: BASOPHILS % (AUTO) 0.2 % (0-3); EOSINOPHILS % (AUTO) 0.3 % (0-5); MONOCYTES % (AUTO) 8.5 % (4-12); Mean Corpuscular Hemoglobin 28.8 pg (27.0-35.0); Mean Corpuscular Volume 89.2 fL (81-100); NEUTROPHILS % (AUTO) 78.4 % (40-74); Platelet Count 167 bil/L (150-400)
[2016-12-18] MEDS: Insulin LISPRO 300 Unit/3 mL Inj SUBQ SCH ×4 (08:00→22:00)
[2016-12-18] MEDS: MeTOProlol 1 mg/mL 5 mL Inj IVPUSH PRN (08:26)
[2016-12-18] MEDS ORDERED: SITAGLIPTIN PO SCH (08:30)
[2016-12-18 08:33] VITALS: PULSE 86
[2016-12-18] MEDS: Venlafaxine XR 75 mg ER24 Capsule PO SCH (08:59)
[2016-12-18] MEDS: Ondansetron 2 mg/mL 2 mL Inj IVPUSH PRN (09:00)
[2016-12-18] MEDS: 0.9% Sodium Chloride 1,000 ML IV SCH (09:05)
--- NOTE | 2016-12-18 09:10 | NUR ---
DIVYA signed ONOFRE Michelle
--- NOTE | 2016-12-18 09:23 | PCM.PNMED ---
Subjective Date of Service Dec 18, 2016 Subjective Continues to have bilateral flank pain as well as some low back pain, suprapubic pain improving although now has dysuria. Still with quite a bit of nausea so not eating well although is tolerating some oral fluids. Exam Vital Signs Vital Sign - Last Date Time Temp Pulse Resp B/P Pulse Ox O2 Delivery O2 Flow Rate FiO2 12/18/16 08:33 86 12/18/16 04:34 36.8 18 178/94 91 Room Air Intake and Output 12/17/16 12/17/16 12/18/16 Cumulative From/Thru 15:00 23:00 07:00 12/15/16 06:39 - 12/18/16 06:53 Intake Total 879 ml 956 ml 1520 ml 9203 ml Output Total 751 ml 700 ml 720 ml 2821 ml Balance 128 ml 256 ml 800 ml 6382 ml Intake Oral 550 ml 1100 ml 2890 ml IV Total 879 ml 406 ml 420 ml 6313 ml Output Urine Total 750 ml 700 ml 720 ml 2820 ml Urine/Stool Mix 1 ml 1 ml # Voids 5 # Bowel Movements 1 5 Exam General: Alert and oriented, no acute distress Heart: Regular Lungs: Clear Abdomen: Soft, non-tender Extremities: No pedal edema IVs and Medications Medications Reviewed: Medications were reviewed in detail Lab and Diagnostics Result Diagram: 12/18/1661912/18/16619 X-Rays, CTs and MRIs CT abd/pelvis IMPRESSION: 1. Prominent perirenal inflammation with mild enlargement of the bilateral ureters and a slight thickening of the wall of the urinary bladder is suspicious for pyelonephritis/ascending urinary tract infection. Please correlate clinically. 2. Large stool within the rectum may represent early fecal impaction. There is no bowel obstruction. 3. Scarring versus atelectasis within the lung bases. 4. Small fat-containing supraumbilical ventral hernia. 5. Coronary and aortic atherosclerosis. 6. Normal appendix Assessment & Plan This is a 56-year-old female known history of type II diabetes, hypertension, previous gastric bypass who presented with general weakness fatigue was found to be septic admitted with the acute pyelonephritis. Sepsis - significant elevated WBCs and tachycardiac on admission - source of infection this point seems to be the urinary tract - also positive blood cultures - Hemodynamically she is stable Acute pyelonephritis - CT scan of the abdomen: Prominent perirenal inflammation with mild enlargement of the bilateral ureters and a slight thickening of the wall of the urinary bladder is suspicious for pyelonephritis/ascending urinary tract infection. 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 - placed on IVF with normal saline, will continue another day since still some nausea but decrease rate from 100 to 50 as is noting some "puffiness" - afternoon adendum: taking oral fluids well (already 1100cc), will DC IVF - Avoid any nephrotoxic medications. - creatinine improved to 1.1 December 17 - losartan initially held, will resumed December 17 Hypertension - Systolic blood pressure 170s - losartan initially held, resumed yesterday - was started on chlorthalidone 25 mg daily instead of her home hydrochlorothiazide 12.5 mg daily - some of blood pressure elevation may be due to pain, for now continue current medications Type II diabetes insulin-dependent - Glucose 87-159 -Started on Lantus nightly 15 units instead of her usual 20, patient has been refusing each night. Will DC for now - Continue a diabetic diet - on sliding scale insulin (but only one unit Lispro last 24 hr) Chronic neck pain with history of C4 to C7 surgical intervention - Initially held her home narcotics but should be okay to resume oral oxycodone as tolerated - IV Dilaudid 1 mg every 4 hours when necessary but not lasting long enough, will change to q 2 hr prn - Also continue Flexeril and gabapentin Chronic ambulatory dysfunction - Patient uses a walker at home. Will get PT involved here. She will be on fall precautions. CODE STATUS: Full Disposition: Will be in the hospital a few more days and then as determined by Dr. Worthy. Patient does intend to return home. GI Prophylaxis: Not indicated VTE Prophylaxis: Sub-Q Heparin (Unfractionated) VTE Mechanical Devices: Intermittant Pneumatic CD Resuscitation Status: CPR: Attempt Resuscitation Cris Holliday MD Dec 18, 2016 09:23
--- NOTE | 2016-12-18 10:29 | NUR ---
Evaluation completed. Please go to "Notes" then click on "Assessments and Notes" (bottom left corner of screen). Then select appropriate discipline tab on top of screen.
[2016-12-18 13:39] VITALS: BP 107/63; PULSE 90; RESP 18; O2SAT 90
--- NOTE | 2016-12-18 14:40 | NUR ---
Social Work: Initial Assessment / Multidisciplinary Rounds Data: Pt is a 56 y/o female admitted for sepsis, UTI. Pt's PCP is Dr Sharif, pt's insurance is Medicare with [facility] supp. EMR reviewed. Pt discussed in rounds. MD states that ID will consult likely tomorrow and determine course of ABX for pt. This will determine d/c plan. MOLDER will continue to follow. MD states pt likely to remain in hospital for at least 2-3 more days. MOLDER met with pt and spouse at bedside, role explained. Pt states she lives in [place] with her and son in a two story home where she uses a can and walker and owns a wheel chair. Pt does not have, has no hx of HH, has nx at [facility], no LTC or VA benefits, pt is not a caregiver. MOLDER will continue to follow. Assessment: Pt who is independent at baseline, cane and walker. Plan: Pt will d/c home via POV when medically stable pending ID and ABX plan, MOLDER will continue to follow. ONOFRE Michelle Addendum: 12/18/16 at 1443 by MARTY GALLARDO Amended: Links added.
[2016-12-18] MEDS: Ertapenem Inj 1,000 MG in 0.9% Sodium Chloride 50 ML IV SCH (17:09)
--- NOTE | 2016-12-18 19:16 | NUR ---
Activity Up to chair most of shift. Worked with PT today. Using 1PA with FWW. Some dizziness this AM and resolved by end of shift. Making needs known appropriately.
[2016-12-18 20:40] VITALS: BP 155/85; PULSE 79; RESP 19; O2SAT 93
[2016-12-19] MEDS: Heparin 5,000 Unit/mL Inj SUBQ SCH ×3 (00:21→16:49)
[2016-12-19 04:51] VITALS: BP 165/80; PULSE 82; RESP 18; O2SAT 91
[2016-12-19] MEDS: HYDROmorphone 1 mg/mL Inj IVPUSH PRN ×4 (05:06→21:53)
--- NOTE | 2016-12-19 06:34 | NUR ---
NOC/pain Pt reports of flank and back pain 03/21 around 0400. Controlled with dilaudid PRN. Denies chest pain, sob, n/v. HS meds administered as scheduled. VSS and has been afebrile overnight.
[2016-12-19] MEDS: Insulin LISPRO 300 Unit/3 mL Inj SUBQ SCH ×4 (08:00→21:51)
[2016-12-19 08:29] VITALS: BP 146/80; PULSE 88; RESP 18; O2SAT 93
[2016-12-19] MEDS: Venlafaxine XR 75 mg ER24 Capsule PO SCH (09:55)
--- NOTE | 2016-12-19 11:17 | NUR ---
Social Work-multidisciplinary Note: MD states pt will likely be in the hospital another 1-2 day. ID MD to see pt and make recommendations for abx. If IV abx are needed at discharge, SW to await MD order to arrange. SW will continue to follow. ONOFRE Mendiola
[2016-12-19] MEDS: Ertapenem Inj 1,000 MG in 0.9% Sodium Chloride 50 ML IV SCH (12:05)
[2016-12-19 12:16] VITALS: BP 150/85; PULSE 77; RESP 18; O2SAT 91
--- NOTE | 2016-12-19 14:00 | CONS ---
[address] [address] CONSULTATION REPORT PATIENT: XOCHILT RAMIREZ : 1960 MR#: [id number] ADMIT: 12/15/2016 JOB ID: [id number] CORRECTED REPORT: DATE: 12/19/[address] Cris Holliday for this timely consult. REASON FOR CONSULTATION: Bacteremic pyelonephritis. HISTORY OF THE PRESENT ILLNESS: The patient is a 56-year-old, retired woman from the [employer]. She has underlying diabetes as well as morbid obesity, which is much improved following a gastric bypass. She was admitted to this facility now four days ago with what appeared to be an uncomplicated pyelonephritis. She reported a history of 1-2 days of nausea, weakness, malaise, cloudy urine, dysuria, and urgency prior to admission. This was associated with some flank pain on the left greater than the right. The blood cultures, urine cultures, and a CT scan were all consistent with pyelonephritis, and both blood and urine eventually grew E. coli. The CT scan looked like pyelo as well and because of her systemic toxicity, she was appropriately admitted to the hospital and started on broad-spectrum antibiotics. I was contacted over the weekend when a somewhat surprising result was available and that is that she had ESBL E. coli in her blood and urine. The antibiotics she had been treated with up to that point were ineffectual, and for that reason, she was switched to ertapenem. The patient reports that over the last 24-48 hours, she has felt dramatically better with essentially complete resolution of all symptoms since the change to ertapenem. Until that time, she was really not getting much better. Today, she states she has no more fevers, chills, or sweats. Her nausea has gone away. She still has some flank and suprapubic pain, but they are improved. She notes her dysuria and urgency with frequency have also resolved and she feels ready to go home. PAST MEDICAL HISTORY: 1. Type 2 diabetes. 2. Morbid obesity with 130-pound weight loss after gastric bypass several years ago. 3. Hypertension. 4. History of recurrent UTIs. SOCIAL HISTORY: The patient is an ex-smoker, having quit decades ago. She does not drink any alcohol. She lives with her in the [place] area at [facility]. 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 FAMILY HISTORY: Negative for tuberculosis, first- or second-degree relatives. REVIEW OF SYSTEMS: The patient have some significant headache which has been improving. She also had some sore throat which is now improving. There was no stiff neck. She had some minimal cough which she said is improved; no chest pain and not productive of sputum at any time. She did have some nausea without vomiting that is better. She has chronic diarrhea on the basis of her gastric bypass and that has not changed. She had cloudy urine, dysuria, urgency and frequency on the first day or two and the day or two leading up to her December 15 admission and those have all resolved. She has had some myalgias and arthralgias which were new and also have improved. Otherwise, review of systems is negative. PHYSICAL EXAMINATION: Reveals an afebrile woman. Temp 36.8, pulse 88, respiratory rate 18, blood pressure 146/80. She is saturating well on room air. She is in no acute distress. Her mood seems a bit down with quite a flat affect but she is lucid and able to answer questions appropriately. Head without trauma. No temporal wasting. Eyes without conjunctivitis. Oral cavity is negative. No thrush, hairy leukoplakia or pharyngitis. Neck supple. Lungs fairly clear. Cardiac tones: Regular rate and rhythm without notable murmur. Abdomen has a scar compatible with her history of gastric bypass surgery. Her abdomen is soft and nontender today. There is some suprapubic tenderness and also some minimal, perhaps left flank tenderness, which she says is much improved. No skin rashes noted. She does not have a Stafford catheter. There is no evidence of synovitis. Peripheral pulses are excellent. No peripheral edema. Neurologically, she is intact. LABORATORIES: Include a white count 38,000, now down to 17. Platelets stable at 167. Creatinine 1.18. LFTs minimally elevated. AST 53, ALT 46, alk phos 169. Albumin 2.2. Urinalysis: Greater than 50 white cells on admission. The urine and blood both grew an E coli which is ESBL and really only sensitive to aminoglycosides and carbapenem. Zosyn would also likely work as the HARISH is less than 4. There are no available oral agents to treat this organism in the bloodstream. IMPRESSION: This is a straightforward presentation of a complicated urinary tract infection with bacteremic pyelonephritis. The twist here is that this patient presenting from the community, who has not been on antibiotics for at least a year, now comes in with a highly resistant extended-spectrum beta-lactamase Escherichia coli in her blood and urine. There is no easy way to manage these cases short of insertion of a temporary line, such as a midline or peripherally-inserted central catheter and treatment with 10-14 days of intravenous antibiotics. RECOMMENDATIONS: 1. I have written orders for a midline or a PICC. 2. IV ertapenem should continue through December 29. One gram once a day of ertapenem should be sufficient. 3. The patient is welcome to follow up with me at any time, though I suspect she will have an uncomplicated course but I have provided her with my card and she is free to call me if there are questions or problems. 4. The patient tells me she has an upcoming appointment with her primary care physician, who can also, of course, be of assistance and involved with the care of this problem. 5. Should the patient continue to require urinary tract infections, especially any multi-drug resistant ones, it may be appropriate for her to see Urology. She tells me her last UTI was about a year ago, but even one a year may be an excessive number if these are multi-drug resistant. Corrected by YOU 12/26/16 at 1:26pm Report type.
--- NOTE | 2016-12-19 14:18 | NUR ---
Social Work-readiness for discharge: Data:EMR Reviewed. Pt is on day 4 of hospitalization for sepsis per H&P. Pt is not medically stable anticipate 1-2 more days. MEENAKSHI GARCIA has seen pt and is recommending IV abx until 12/29. MD order received. MICHAEL met with pt at bedside, SW role explained. Pt has capacity to self care due to no concerns noted from RN and MEENAKSHI MD feels pt is able to manage IV abx at home. SW explained recommendation of IV abx at home. Pt is agreeable to this, Infusion Choice list provided. Pt has no agency preference. SW referred to rotating calendar and made referral to [facility]. MICHAEL spoke with [facility] and provided her access in [facility]. MICHAEL also faxed order to Gill for medication and duration to [phone]. Gill to check benefits and get back to MICHAEL. SW will continue to follow. Assessment:Pt who is independent at baseline. Plan:Pt to discharge home when medically stable via POV. MICHAEL made referral to [facility] for home IV abx. Gill to check benefits and let SW know. MICHAEL will continue to follow. ONOFRE Mendiola
--- NOTE | 2016-12-19 15:07 | NUR ---
Infusion Choice list provided. ONOFRE Mendiola
[2016-12-19 16:32] VITALS: BP 148/82; PULSE 78; RESP 16; O2SAT 92
--- NOTE | 2016-12-19 17:27 | PCM.PNMED ---
Subjective Date of Service Dec 19, 2016 Subjective Says continuing to improve. Denies any other new issues/complaints Exam Vital Signs Vital Sign - Last Date Time Temp Pulse Resp B/P Pulse Ox O2 Delivery O2 Flow Rate FiO2 12/19/16 16:32 36.9 78 16 148/82 92 Room Air Intake and Output 12/18/16 12/18/16 12/19/16 Cumulative From/Thru 15:00 23:00 07:00 12/15/16 06:39 - 12/19/16 06:05 Intake Total 1880 ml 40 ml 15011 ml Output Total 4 ml 2825 ml Balance 1876 ml 40 ml 8298 ml Intake Oral 1450 ml 4340 ml IV Total 430 ml 40 ml 6783 ml Output Urine Total 2820 ml Urine/Stool Mix 4 ml 5 ml # Voids 5 # Bowel Movements 1 6 General: Alert, Cooperative, No Acute Distress Head: Normal Eyes: Scleral Anicteric Nose: Mucous Membr Moist/[place] Mouth: Mucous Membr Moist/[place] Neck: Supple Chest & Lungs: Chest Wall Normal, Clear to auscultation & percussion Cardiovascular: Regular Rate/Rhythm Pulses: NL carotid, radial, femoral, DP, PT Abdomen: Non-tender, Non-distended, Normoactive bowel tones, Soft Extremities: No cyanosis/clubbing/edma bilat Neurological: Grossly Neurologically Intact, Normal Speech IVs and Medications Medications Reviewed: Medications were reviewed in detail Lab and Diagnostics Result Diagram: 12/18/1661912/18/16 0620 X-Rays, CTs and MRIs CT abd/pelvis IMPRESSION: 1. Prominent perirenal inflammation with mild enlargement of the bilateral ureters and a slight thickening of the wall of the urinary bladder is suspicious for pyelonephritis/ascending urinary tract infection. Please correlate clinically. 2. Large stool within the rectum may represent early fecal impaction. There is no bowel obstruction. 3. Scarring versus atelectasis within the lung bases. 4. Small fat-containing supraumbilical ventral hernia. 5. Coronary and aortic atherosclerosis. 6. Normal appendix Assessment & Plan 56-year-old female known history of type II diabetes, hypertension, previous gastric bypass who presented with general weakness fatigue was found to be septic admitted with the acute pyelonephritis. # Acute Sepsis. Present on admission. Clinically resolved. - Source of infection is urinary tract and acute E. Coli bacteremia - Hemodynamically she is stable # Acute pyelonephritis. 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 Will followup with recs - IV ertapenem should continue through December 29. One gram once a day of ertapenem should be sufficient. - PICC line placement today # Acute ESBL bacteremia, present on admission - Due to underlying Pyelonephritis - Treatment as noted above # Acute kidney injury on chronic disease (creatinine 1.46 on admission, had been 1.39 in August). Present on admission. Improving. - Most probably secondary to her septic state and dehydration. - Improved with IV fluid - Avoid any nephrotoxic medications. - Losartan initially held, resumed on December 17 # Hypertension, chronic. Stable - Losartan initially held, resumed - Was started on chlorthalidone 25 mg daily instead of her home hydrochlorothiazide 12.5 mg daily - Continue current medications # Type II diabetes insulin-dependent - Started on Lantus nightly 15 units instead of her usual 20, patient has been refusing each night. - Continue a diabetic diet - On sliding scale insulin # Chronic neck pain with history of C4 to C7 surgical intervention - Initially held her home narcotics but should be okay to resume oral oxycodone as tolerated - IV Dilaudid as needed - Also continue Flexeril and gabapentin # Chronic ambulatory dysfunction - Patient uses a walker at home. - Will get PT consult. Dispo: 1-2 days GI Prophylaxis: Not indicated VTE Prophylaxis: Sub-Q Heparin (Unfractionated) VTE Mechanical Devices: Intermittant Pneumatic CD Resuscitation Status: CPR: Attempt Resuscitation Julio Matt Dec 19, 2016 17:27
--- NOTE | 2016-12-19 18:16 | NUR ---
Pain Pt resting comfortable, no signs of distress or discomfrt. Pt complained of flank 7/10 at beginning of shift, 5 mg oxycodone given as ordered by MD. Re-assessment of pain, pt reports no decrease in pain level. Requesting IV Dilaudid. Dilaudid given at appro 1200 and 1600. Pt reported pain at tolerable levels. Has rested quietly through shift. Appears to be quite drowsy at this time. Call light in place, will continue to monitor.
[2016-12-19 20:30] VITALS: BP 139/84; PULSE 78; RESP 19; O2SAT 93
[2016-12-20] MEDS: Heparin 5,000 Unit/mL Inj SUBQ SCH ×3 (00:32→17:55)
[2016-12-20] MEDS: HYDROmorphone 1 mg/mL Inj IVPUSH PRN ×5 (00:32→22:49)
[2016-12-20 05:30] VITALS: BP 146/79; PULSE 74; RESP 19; O2SAT 94
--- NOTE | 2016-12-20 06:23 | NUR ---
NOC activity Pt has been a little lethargic from the start of shift. Reports of pain 10/10 on her flank and radiating to her back. IV dilaudid administered PRN. Pt states that it has been effective. Denies sob, n/v or abd discomfort. HS meds administered as scheduled. Intentional hourly rounding done and pt has slept most of the night.
[2016-12-20 06:41] LABS: Mean Corpuscular Hemoglobin 28.5 pg (27.0-35.0); Mean Corpuscular Volume 89.7 fL (81-100); Platelet Count 206 bil/L (150-400)
[2016-12-20 07:41] LABS: Magnesium 1.2 mg/dL (1.6-2.6)
[2016-12-20 08:00] LABS: BASOPHILS % (AUTO) 0 % (0-3); EOSINOPHILS % (AUTO) 1 % (0-5); MONOCYTES % (AUTO) 12 % (4-12); NEUTROPHILS % (AUTO) 51 % (40-74)
[2016-12-20] MEDS ORDERED: KCl 40 mEq/D5W 500 mL 40 MEQ in IV Premix 500 EACH IV ONE (08:00)
[2016-12-20] MEDS ORDERED: Dextrose 5% 1,000 ML IV ONE (08:00)
[2016-12-20] MEDS ORDERED: Magnesium Sulf 4 Gm/100 mL H2O 4 GM in IV Premix 1 EACH IV ONE (08:00)
[2016-12-20] MEDS ORDERED: Potassium Chloride 20 mEq SR Tablet PO ONE (08:00)
[2016-12-20 08:42] VITALS: BP 131/76; PULSE 87; RESP 18; O2SAT 94
--- NOTE | 2016-12-20 09:19 | NUR ---
Social Work-readiness for discharge: Data:EMR Reviewed. Pt is on day 5 of hospitalization for Sepsis per H&P. Pt is not medically stable. SW placed a call to [facility] and left a message inquiring about IV abx and cost .SW awaiting a return call from [facility] with [facility]. SW will continue to follow. Assessment:Pt who will need IV abx. Plan:Pt to discharge home when medically stable. SW has left a message with [facility] regarding IV abx, awaiting a return call. SW will continue to follow. ONOFRE Mendiola
[2016-12-20] MEDS: Insulin LISPRO 300 Unit/3 mL Inj SUBQ SCH ×4 (09:23→22:00)
[2016-12-20] MEDS: Venlafaxine XR 75 mg ER24 Capsule PO SCH (09:40)
--- NOTE | 2016-12-20 11:30 | NUR ---
Social Work-multidisciplinary rounds: Per MD in morning rounds, pt likely to discharge in the next 1-2 days. [facility] checking home benefits. MD to place order for HH services. PT recommending HH services. ONOFRE Mendiola
--- NOTE | 2016-12-20 12:41 | NUR ---
Social Work-readiness for discharge: Data:EMR reviewed. Pt is on day 5 of hospitalization for sepsis and UTI per H&P. Pt is not medically stable anticipate 1-2 more days. PT has seen pt and recommended home with HH Services. MD order received for HH-RN and PT. SW spoke with [facility] who confirms pt has 100% coverage minus RN, but this can be set up with HH services. Ana Luisa states she will come and provide explanation to pt later this afternoon. SW met with pt and Alan at bedside, SW role explained. SW explained about coverage for Abx and they are agreeable. SW explained recommendation for HH services. HH choice list provided. Only company that goes to [place] is [facility], and pt agreeable. SW made referral to Javy Manzanares with [facility] for RN and PT, access given. MD to complete F2F. SW will continue to follow. Assessment:Pt to benefit from home IV abx and HH. Plan:Pt to discharge home when medically stable via POV.[facility] following for home Infusion, pt has 100% coverage. Referral made to [facility] For RN and PT. MD to complete F2F. SW will continue to follow. ONOFRE Mendiola
--- NOTE | 2016-12-20 12:47 | NUR ---
choice list provided. ONOFRE Mendiola
[2016-12-20 12:56] VITALS: BP 157/73; PULSE 90; RESP 18; O2SAT 91
--- NOTE | 2016-12-20 14:57 | PROG NOTE ---
[address] [address] PROGRESS NOTE PATIENT: XOCHILT RAMIREZ : 1960 MR#: [id number] ADMIT: 12/15/2016 JOB ID: [id number] DATE: 12/20/2016 INFECTIOUS DISEASE FOLLOW UP NOTE: REASON FOR FOLLOWUP: ESBL bacteremic complicated urinary tract infection. INTERVAL HISTORY: The patient reports she is continuing to feel reasonably well though quite tired overall. Aside from that though, she has no fevers, chills or sweats. No oral lesions. No cough, shortness of breath, chest pain, nausea or vomiting. She states she has some mild bilateral flank pain. PHYSICAL EXAMINATION: Reveals an afebrile woman. Temperature 36.3, pulse 90, respiratory rate 18, blood pressure 157/73. She is saturating 91% actually on room air. She is in no distress though. The oral cavity benign. Lungs clear. Cardiac tones without new murmur. Abdomen negative. Some minimal left flank tenderness perhaps. Micro, of course, was notable for blood cultures as well as urine cultures which grew an ESBL E. coli. IMPRESSION: This is a patient with a complicated urinary tract infection due to a bacteremic ESBL E. coli. RECOMMENDATIONS: 1. Midline catheter has been placed right away today. 2. The patient could be discharged at anytime to receive ertapenem IV through December 29 1 g once a day will be adequate. The patient is welcome to follow with me in clinic if need be though I suspect she will do well with this therapy alone. 3. I am going to sign off on this case as her discharge appears imminent but I can be reached at any time to discuss her inpatient or outpatient situation. Ertapenem could be IM if no IV access MTDD
[2016-12-20] MEDS: Ertapenem Inj 1,000 MG in 0.9% Sodium Chloride 50 ML IV SCH (15:14)
--- NOTE | 2016-12-20 15:45 | NUR ---
Social Work-readiness for discharge: Data:EMR Reviewed. Pt is on day 5 of hospitalization for sepsis per H&P. Pt is not medically stable anticipate tomorrow. MICHAEL updated by MEENAKSHI GARCIA that pt is not able to get line placed and he is now recommending IM injections. SW spoke with [facility] who states that they cannot do the daily injections, but may be able to get the medication for the pt. MICHAEL spoke with Javy from [facility] who confirms they can go in daily for IM injections for pt at home in [place]. SW to wait and hear back from [facility] regarding medication. SW will continue to follow. Assessment:Pt who will need abx at home. Plan:Pt to discharge home when medically stable via POV. [facility] able to do the daily IM injections for pt. SW awaiting to hear back from [facility] in regards to supplying the medication. SW will continue to follow. ONOFRE Mendiola Addendum: 12/20/16 at 1549 by CALVIN DARNELL Pt also has [facility] caregivers and her CM is MICHAEL Smith faxed updated clinicals for review. ONOFRE Mendiola
--- NOTE | 2016-12-20 16:07 | PCM.PNMED ---
Subjective Date of Service Dec 20, 2016 Subjective Denies any other new issues/complaints Exam Vital Signs Vital Sign - Last Date Time Temp Pulse Resp B/P Pulse Ox O2 Delivery O2 Flow Rate FiO2 12/20/16 12:56 36.3 90 18 157/73 91 Room Air Intake and Output 12/19/16 12/19/16 12/20/16 Cumulative From/Thru 15:00 23:00 07:00 12/15/16 06:39 - 12/20/16 06:38 Intake Total 100 ml 822 ml 100 ml 88700 ml Output Total 3 ml 391 ml 3219 ml Balance 100 ml 819 ml -291 ml 8926 ml Intake Oral 100 ml 770 ml 100 ml 5310 ml IV Total 52 ml 6835 ml Output Urine Total 390 ml 3210 ml Urine/Stool Mix 3 ml 1 ml 9 ml # Voids 1 6 # Bowel Movements 1 7 Exam General: Alert, Cooperative, No Acute Distress Head: Normal Eyes: Scleral Anicteric Nose: Mucous Membr Moist/[place] Mouth: Mucous Membr Moist/[place] Neck: Supple Chest & Lungs: Chest Wall Normal, Clear to auscultation bilat Cardiovascular: Regular Rate/Rhythm Pulses: NL carotid, radial, femoral, DP, PT Abdomen: Non-tender, Non-distended, Normoactive bowel tones, Soft Extremities: No cyanosis/clubbing/edema bilat Neurological: Grossly Neurologically Intact, Normal Speech IVs and Medications Medications Reviewed: Medications were reviewed in detail Lab and Diagnostics Result Diagram: 12/20/1653012/20/16530 X-Rays, CTs and MRIs CT abd/pelvis IMPRESSION: 1. Prominent perirenal inflammation with mild enlargement of the bilateral ureters and a slight thickening of the wall of the urinary bladder is suspicious for pyelonephritis/ascending urinary tract infection. Please correlate clinically. 2. Large stool within the rectum may represent early fecal impaction. There is no bowel obstruction. 3. Scarring versus atelectasis within the lung bases. 4. Small fat-containing supraumbilical ventral hernia. 5. Coronary and aortic atherosclerosis. 6. Normal appendix Assessment & Plan 56-year-old female known history of type II diabetes, hypertension, previous gastric bypass who presented with general weakness fatigue was found to be septic admitted with the acute pyelonephritis. # Acute pyelonephritis. 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 Will followup with recs - IV ertapenem should continue through December 29. One gram once a day of ertapenem should be sufficient. - Midline line placed on 12/20/16 # Acute ESBL bacteremia, present on admission - Due to underlying Pyelonephritis - Treatment as noted above # Acute kidney injury on chronic disease (creatinine 1.46 on admission, had been 1.39 in August). Present on admission. - Most probably secondary to her septic state and dehydration. - Improved with IV fluids initially but worse today - Avoid any nephrotoxic medications. - Losartan initially held, resumed on December 17 - Gentle IV fluid today and followup # Acute hypomagnesemia. Present on admission and reoccurring - Replete and followup # Acute hypernatremia. Not present on admission - D5W IV fluid and followup # Hypertension, chronic. Stable - Losartan initially held, resumed - Was started on chlorthalidone 25 mg daily instead of her home hydrochlorothiazide 12.5 mg daily - Continue current medications # Acute Sepsis. Present on admission. Clinically resolved. - Source of infection is urinary tract and acute E. Coli bacteremia - Hemodynamically she is stable # Type II diabetes insulin-dependent - Started on Lantus nightly 15 units instead of her usual 20, patient has been refusing each night. - Continue a diabetic diet - On sliding scale insulin # Chronic neck pain with history of C4 to C7 surgical intervention - Initially held her home narcotics but should be okay to resume oral oxycodone as tolerated - IV Dilaudid as needed - Also continue Flexeril and gabapentin # Chronic ambulatory dysfunction - Patient uses a walker at home. - PT consult. Dispo: 1-2 days GI Prophylaxis: Not indicated VTE Prophylaxis: Sub-Q Heparin (Unfractionated) VTE Mechanical Devices: Intermittant Pneumatic CD Resuscitation Status: CPR: Attempt Resuscitation Julio Matt Dec 20, 2016 16:07
[2016-12-20 17:00] VITALS: BP 165/91; PULSE 77; RESP 18; O2SAT 94
[2016-12-20 19:19] VITALS: BP 147/86; PULSE 82; RESP 18; O2SAT 92
--- NOTE | 2016-12-20 19:22 | NUR ---
Blood sugars and Midline Blood sugar at dinner 408, reports having just had [employer] slurpee, insulin admin, ACHS checks continue. IV therapy assessed for midline and unable to obtain, plan is for IM ABX with HH at discharge.
[2016-12-20 23:23] VITALS: BP 137/80; PULSE 76; RESP 18; O2SAT 95
[2016-12-21] MEDS: Heparin 5,000 Unit/mL Inj SUBQ SCH ×3 (00:56→17:44)
[2016-12-21] MEDS: HYDROmorphone 1 mg/mL Inj IVPUSH PRN (01:04)
[2016-12-21 03:27] VITALS: BP 142/88; PULSE 82; RESP 18; O2SAT 93
--- NOTE | 2016-12-21 04:57 | NUR ---
Pain Pt complained of 10/10 and 7/10 chronic pain to neck and back. Requesting only IV Dilaudid, refusing PO analgesics.
[2016-12-21 06:41] LABS: Mean Corpuscular Hemoglobin 28.5 pg (27.0-35.0); Mean Corpuscular Volume 88.7 fL (81-100)
[2016-12-21 06:52] LABS: Magnesium 1.8 mg/dL (1.6-2.6)
[2016-12-21] MEDS: Insulin LISPRO 300 Unit/3 mL Inj SUBQ SCH ×4 (08:00→22:18)
[2016-12-21] MEDS ORDERED: Potassium Chloride 20 mEq SR Tablet PO ONE (08:20)
[2016-12-21] MEDS: Ondansetron 2 mg/mL 2 mL Inj IVPUSH PRN (09:04)
[2016-12-21] MEDS: Venlafaxine XR 75 mg ER24 Capsule PO SCH (09:07)
--- NOTE | 2016-12-21 09:12 | NUR ---
Social Work-readiness for discharge: Data:EMR Reviewed. Pt is on day 6 of hospitalization for sepsis per H&P. Pt is not medically stable at this time. MICHAEL spoke with Ana Luisa at [facility] who states they are not able to supply the pt with medication of IM injections. MICHAEL placed a call to [facility] and spoke with Sarmad who confirms they can provide medication for IM injections. MICHAEL provided access in [facility] and also faxed in ID MD orders. Sarmad to call MICHAEL back with cost associated with this. [facility] able to do the IM injections daily for the pt at home. F2F to be completed by . MICHAEL will continue to follow. Assessment:Pt who will need daily IM abx. Plan:Pt to discharge home when medically stable via POV. [facility] checking on cost associated with IM injections for abx, will call MICHAEL back. [facility] able to do the IM injections daily for the pt at home. F2F to be completed by . MICHAEL will continue to follow. ONOFRE Mendiola
--- NOTE | 2016-12-21 10:49 | NUR ---
Social Work-multidisciplinary rounds: Per MD in morning rounds, pt will likely be ready tomorrow to discharge. SW working on coordinating home IM injections for abx and HH services. SW will continue to follow. ONOFRE Mendiola
--- NOTE | 2016-12-21 12:26 | NUR ---
Social Work-readiness for discharge: Data:EMR Reviewed. Pt is on day 6 of hospitalization for sepsis per H&P. Pt is likely medically stable tomorrow. MICHAEL spoke with Sarmad at [facility] who confirms they are able to provide the medication for the injection. Sarmad states pt's insurance covers this 100%. Sarmad states they would like pt to have at least one dose IM in the hospital prior to returning home. MICHAEL spoke with Who will order this for pt today. RN confirms pt has been getting medication around 1300 daily. MICHAEL updated Sarmad regarding this information, Sarmad will just need to be notified tomorrow if pt will get her dose in the hospital or at home. [facility] will either bring the supplies and medication to the hospital or bring it to pt's home. MICHAEL confirmed with Javy with [facility] that they can do daily injections. MICHAEL updated pt at bedside and Alan via phone, both agreeable to plan. F2F will need to be completed by . MICHAEL will continue to follow. Assessment:Pt who would benefit from abx and HH. Plan:Pt to discharge home when medically stable via POV. Sarmad at [facility] will need to be notified tomorrow if pt does discharge and if dose will be done at hospital or at home. [facility] referred for RN and PT. RN to do daily injections for pt at home. F2F will need to be completed by . MICHAEL will continue to follow. ONOFRE Mendiola
--- NOTE | 2016-12-21 12:26 | NUR ---
DIVYA Signed. ONOFRE Mendiola
[2016-12-21 13:32] VITALS: BP 170/93; PULSE 88; RESP 18; O2SAT 91
--- NOTE | 2016-12-21 13:35 | NUR ---
NUTRITION FOLLOW-UP: ASSESS: 56 YO Female admitted with pyelonephritis, bacteremia, acute kidney injury, sepsis. Pt eating 75-100% of meals, follows soft diet as pt w/o teeth at this time. History of gastric bypass/obesity. PMHX: Diabetes Type II, gastric bypass, obesity DIET: Diabetic, small portions, glucerna BID. PO 75-100% of meals. LABS: Reviewed. Cr 1.31, Glu 128, A1C 7.2, Ca 8.1, Alb 2.2. MEDS: Reviewed GI: BM x 1 (12/21) WEIGHT: 78.3 kg Admit wt: 77.2 kg EST.NEEDS: Kcal: 3822-9876 kcals (25-30 kcals/kg BW) Pro: 60-95 g protein (0.8-1.2 g/kg BW) NUTRITION DIAGNOSIS: (1) Altered GI tract function related to alteration in GI tract structure as evidenced by h/o gastric bypass--PERSISTS. (2) Chew/swallowing issues related to dentition/missing teeth as evidenced by maximum soft diet per pt report--PERSISTS. INTERVENTION: (1) Continue soft diet, small portions, frequent meals/snacks. MONITOR/EVALUATE: PO intake, labs, nutritional status. Follow per low nutritional risk guidelines.
[2016-12-21] MEDS ORDERED: ERTAPENEM 1000 MG IM SCH (15:00)
--- NOTE | 2016-12-21 17:15 | PCM.PNMED ---
Subjective Date of Service Dec 21, 2016 Subjective Denies any other new issues/complaints Exam Vital Signs Vital Sign - Last Date Time Temp Pulse Resp B/P Pulse Ox O2 Delivery O2 Flow Rate FiO2 12/21/16 13:32 36.8 88 18 170/93 91 Room Air Intake and Output 12/20/16 12/20/16 12/21/16 Cumulative From/Thru 15:00 23:00 07:00 12/15/16 06:39 - 12/21/16 06:42 Intake Total 1271 ml 300 ml 07612 ml Output Total 3219 ml Balance 1271 ml 300 ml 94121 ml Intake Oral 300 ml 5610 ml IV Total 1271 ml 8106 ml Output Urine Total 3210 ml Urine/Stool Mix 9 ml # Voids 1 7 # Bowel Movements 1 8 Exam General: Alert, Cooperative, No Acute Distress Head: Normal Eyes: Scleral Anicteric Nose: Mucous Membr Moist/[place] Mouth: Mucous Membr Moist/[place] Neck: Supple Chest & Lungs: Chest Wall Normal, Clear to auscultation bilat Cardiovascular: Regular Rate/Rhythm Pulses: NL carotid, radial, femoral, DP, PT Abdomen: Non-tender, Non-distended, Normoactive bowel tones, Soft Extremities: No cyanosis/clubbing/edema bilat Neurological: Grossly Neurologically Intact, Normal Speech IVs and Medications Medications Reviewed: Medications were reviewed in detail Lab and Diagnostics Result Diagram: 12/21/1610 12/21/16 0610 X-Rays, CTs and MRIs CT abd/pelvis IMPRESSION: 1. Prominent perirenal inflammation with mild enlargement of the bilateral ureters and a slight thickening of the wall of the urinary bladder is suspicious for pyelonephritis/ascending urinary tract infection. Please correlate clinically. 2. Large stool within the rectum may represent early fecal impaction. There is no bowel obstruction. 3. Scarring versus atelectasis within the lung bases. 4. Small fat-containing supraumbilical ventral hernia. 5. Coronary and aortic atherosclerosis. 6. Normal appendix Assessment & Plan 56-year-old female known history of type II diabetes, hypertension, previous gastric bypass who presented with general weakness fatigue was found to be septic admitted with the acute pyelonephritis. # Acute pyelonephritis. 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 Will followup with recs - Change IV ertapenem to IM given inability to place a more permanent line ( due to poor venous access). This should continue through December 29. # Acute ESBL bacteremia, present on admission - Due to underlying Pyelonephritis - Treatment as noted above # Acute kidney injury on chronic disease (creatinine 1.46 on admission, had been 1.39 in August). Present on admission. - Most probably secondary to her septic state and dehydration. - Improved with IV fluids - Avoid any nephrotoxic medications. - Losartan initially held, resumed on December 17 - Followup # Acute hypomagnesemia. Present on admission and reoccurring - Improved after repletion - Followup # Acute hypernatremia. Not present on admission - Resolved after D5W IV fluid # Hypertension, chronic. Poorly controlled - Losartan initially held, resumed - Was started on chlorthalidone 25 mg daily instead of her home hydrochlorothiazide 12.5 mg daily - Continue current medications # Acute Sepsis. Present on admission. Clinically resolved. - Source of infection is urinary tract and acute E. Coli bacteremia - Hemodynamically she is stable # Type II diabetes insulin-dependent - Started on Lantus nightly 15 units instead of her usual 20, patient has been refusing each night. - Continue a diabetic diet - On sliding scale insulin # Chronic neck pain with history of C4 to C7 surgical intervention - Initially held her home narcotics but should be okay to resume oral oxycodone as tolerated - Stop IV Dilaudid in anticipation of d/c home tomorrow # Chronic ambulatory dysfunction - Patient uses a walker at home. - PT consult. Dispo: likely home with home infusion in am GI Prophylaxis: Not indicated VTE Prophylaxis: Sub-Q Heparin (Unfractionated) VTE Mechanical Devices: Intermittant Pneumatic CD Resuscitation Status: CPR: Attempt Resuscitation Julio Matt Dec 21, 2016 17:15
--- NOTE | 2016-12-21 18:01 | NUR ---
Change in activity Sleeping most of shift. Intermittently in deep sleep otherwise arouses easily but can be forgetful. Pain medication administration reduced this shit. Family at bedside at this time.
[2016-12-21 19:45] VITALS: BP 157/75; PULSE 91; RESP 18; O2SAT 94
[2016-12-22] MEDS: Heparin 5,000 Unit/mL Inj SUBQ SCH ×2 (00:45→09:07)
--- NOTE | 2016-12-22 03:11 | NUR ---
NOC shift note Patient has slept soundly tonight. Cooperative with care, wakes to voice during interventions. Blood glucose levels have been 286 at HS (3 units Humalog given) and 112 at 0230. Reported 9/10 abdominal/back pain at HS, administered PRN Tylenol and Flexaril, and scheduled medications. Bed alarm on for safety, intentional rounding in place.
[2016-12-22 04:43] VITALS: BP 160/86; PULSE 78; RESP 18; O2SAT 97
[2016-12-22 06:31] LABS: BASOPHILS % (AUTO) 0.6 % (0-3); EOSINOPHILS % (AUTO) 2.1 % (0-5); MONOCYTES % (AUTO) 7.8 % (4-12); Mean Corpuscular Hemoglobin 28.8 pg (27.0-35.0); Mean Corpuscular Volume 88.2 fL (81-100); NEUTROPHILS % (AUTO) 60.1 % (40-74); Platelet Count 284 bil/L (150-400)
[2016-12-22 06:46] LABS: Magnesium 1.4 mg/dL (1.6-2.6)
[2016-12-22] MEDS ORDERED: Magnesium Sulf 2 Gm/50mL Water 2 GM in IV Premix 1 EACH IV ONE (07:45)
[2016-12-22] MEDS: Insulin LISPRO 300 Unit/3 mL Inj SUBQ SCH ×2 (07:47→11:12)
[2016-12-22] MEDS: Venlafaxine XR 75 mg ER24 Capsule PO SCH (09:04)
[2016-12-22] MEDS: Ondansetron 2 mg/mL 2 mL Inj IVPUSH PRN (09:13)
--- NOTE | 2016-12-22 10:44 | NUR ---
Social Work: Readiness for d/c / Multidisciplinary Rounds Data: Pt is on day 7 of hospitalization. EMR reviewed. Pt discussed in rounds. states pt likely to d/c today pending ID. FUNDRAISING COORDINATOR called [facility], spoke with Sarmad who states that they are all set and will deliver meds and equipment to pt today between 12-1pm, they have prescription already. completed F2F; FUNDRAISING COORDINATOR notified [facility] of probable d/c and F2F ready for them to bead picker. FUNDRAISING COORDINATOR will continue to follow. Assessment: Pt who is independent at baseline. Plan: Pt will d/c home likely today with [facility] for medication and supplies and [facility] RN/PT, with RN coming daily for IMABX. No further d/c planning needs identified. FUNDRAISING COORDINATOR will continue to follow if needs arise. ONOFRE Michelle
[2016-12-22] MEDS ORDERED: INVANZ1I IM (12:16)
--- NOTE | 2016-12-22 12:21 | PCM.DIMED ---
Discharge Instructions Date of Service Dec 22, 2016 Dates of Hospitalization Dec 15, 2016 at 09:30 Discharge Diagnosis Discharge Diagnosis # Acute pyelonephritis. present on admission - Improving # Acute ESBL E. Coli bacteremia and UTI, present on admission # Acute kidney injury on chronic disease. Present on admission. Improved # Acute hypomagnesemia. Present on admission and reoccurring - Improved after repletion # Acute hypernatremia. Not present on admission. Improved # Hypertension, chronic. Poorly controlled # Acute Sepsis. Present on admission. Clinically resolved. - Source of infection is urinary tract and acute E. Coli bacteremia # Type II diabetes insulin-dependent # Chronic neck pain with history of C4 to C7 surgical intervention # Chronic ambulatory dysfunction Diet Discharge Diet: Low fat, Low Sodium, Heart Healthy, Diabetic Activity Discharge Activity: Home Health Phyical Therapy Call your provider Call your provider for: Fever or Chills, Shortness of breath, Bleeding, Chest pain, Excessive diarrhea Patient Instructions Patient Instructions Seek immediate medical attention if any new or worsening signs or symptoms occur. Follow-up plan 1. Followup with primary care provider within one week to further address hypertension, diabetes, and renal function Follow-up Provider: Shasha Sharif PA-C, Masoud Dec 22, 2016 12:21
--- NOTE | 2016-12-22 12:52 | NUR ---
Discharge Note Pt denied any pain today. Pt expresssed understanding of all discharge instructions, medications, and follow up appt. Care Notes provided. Pt ready to discharge home with all belongings, waiting for ride home.
--- NOTE | 2016-12-22 14:27 | NUR ---
Social Work: Discharge Data: Pt is on day 7 of hospitalization. EMR reviewed, D/C orders are in. No further d/c planning needs. Assessment: Pt who is independent at baseline. Plan: Pt will d/c home today with [facility] for medication and supplies and [facility] RN/PT, with RN coming daily for IMABX. No further d/c planning needs identified. MARBLE INSTALLATION HELPER will continue to follow if needs arise. ONOFRE Michelle
--- NOTE | 2016-12-22 16:26 | PCM.DC.MED ---
Discharge Summary Date of Service Dec 22, 2016 Dates of Hospitalization Date of Hospital Admission Dec 15, 2016 at 09:30 Date of Discharge: Dec 22, 2016 Providers: Admitting Physician: Edgar Wells MD Primary Care Physician: Shasha Sharif PA-C Attending Physician: Julio Carrion Diagnosis at Time of Discharge Diagnosis at Time of Discharge # Acute pyelonephritis. present on admission - Improving # Acute ESBL E. Coli bacteremia and UTI, present on admission # Acute kidney injury on chronic disease. Present on admission. Improved # Acute hypomagnesemia. Present on admission and reoccurring - Improved after repletion # Acute hypernatremia. Not present on admission. Improved # Hypertension, chronic. Poorly controlled # Acute Sepsis. Present on admission. Clinically resolved. - Source of infection is urinary tract and acute E. Coli bacteremia # Type II diabetes insulin-dependent # Chronic neck pain with history of C4 to C7 surgical intervention # Chronic ambulatory dysfunction Consultations 1. ID Procedures XRay, CTs & MRIs CT abd/pelvis IMPRESSION: 1. Prominent perirenal inflammation with mild enlargement of the bilateral ureters and a slight thickening of the wall of the urinary bladder is suspicious for pyelonephritis/ascending urinary tract infection. Please correlate clinically. 2. Large stool within the rectum may represent early fecal impaction. There is no bowel obstruction. 3. Scarring versus atelectasis within the lung bases. 4. Small fat-containing supraumbilical ventral hernia. 5. Coronary and aortic atherosclerosis. 6. Normal appendix Brief History As noted in H&P by Dr. Wells: Catia is a 56-year-old female known history of type II diabetes insulin- dependent hypertension, morbid obesity with previous gastric bypass who presented to the emergency department with generally feeling unwell for the last 1-2 days. Patient has complained of suprapubic discomfort as well as bilateral flank pain. She denies any fevers had has occasional chills has also felt nauseous no vomiting. Patient also has had diarrhea however she states is a chronic issue for her nothing new she denies any hematemesis hematochezia or hemoptysis. Patient has complained of increased urinary frequency urgency. Otherwise a complete evaluation was done in the emergency department she was found to have a significantly elevated WBC. Also a CT scan was performed that did show suspected pyelonephritis. Patient did also have a criteria indicating that she was septic. Considering her findings hospice were asked to admit the patient further management and evaluation. Hospital Course # Acute pyelonephritis. present on admission - Improving - She was given Rocephin in the emergency department then started on IV Levaquin but changed to Ertapenem on 12/17/16 when culture results available - Urine and both blood cultures show E coli which is ESBL queen producer - Appreciate ID consult. Will followup with recs - Changed IV ertapenem to IM given inability to place a more permanent line ( due to poor venous access). This should continue through December 29. # Acute ESBL bacteremia, present on admission - Due to underlying Pyelonephritis - Treatment as noted above # Acute kidney injury on chronic disease (creatinine 1.46 on admission, had been 1.39 in August). Present on admission. - Most probably secondary to her septic state and dehydration. - Improved with IV fluids - Avoid any nephrotoxic medications. - Losartan initially held, resumed on December 17 - Followup by PCP as outpatient # Acute hypomagnesemia. Present on admission and reoccurring - Improved after repletion - Followup by PCP as outpatient # Acute hypernatremia. Not present on admission - Resolved after D5W IV fluid # Hypertension, chronic. Poorly controlled - Losartan initially held, resumed - Was started on chlorthalidone 25 mg daily instead of her home hydrochlorothiazide 12.5 mg daily - Continue current medications # Acute Sepsis. Present on admission. Clinically resolved. - Source of infection is urinary tract and acute E. Coli bacteremia - Hemodynamically she is stable # Type II diabetes insulin-dependent - Started on Lantus nightly 15 units instead of her usual 20, patient has been refusing each night. - Continue a diabetic diet - On sliding scale insulin during this hospital # Chronic neck pain with history of C4 to C7 surgical intervention - Initially held her home narcotics but should be okay to resume oral oxycodone as tolerated - Stopped IV Dilaudid on 12/21 in anticipation of d/c home # Chronic ambulatory dysfunction - Patient uses a walker at home. - PT consulted by day of d/c patient denies any new issues/complaints and expresses eagerness to go home Exam Vital Signs (Last) Date Time Temp Pulse Resp B/P Pulse Ox O2 Delivery O2 Flow Rate FiO2 12/22/16 04:43 36.7 78 18 160/86 97 Room Air Exam General: Alert, Cooperative, No Acute Distress Head: Normal Eyes: Scleral Anicteric Nose: Mucous Membr Moist/[place] Mouth: Mucous Membr Moist/[place] Neck: Supple Chest & Lungs: Chest Wall Normal, Clear to auscultation bilat Cardiovascular: Regular Rate/Rhythm Pulses: NL carotid, radial, femoral, DP, PT Abdomen: Non-tender, Non-distended, Normoactive bowel tones, Soft Extremities: No cyanosis/clubbing/edema bilat Neurological: Grossly Neurologically Intact, Normal Speech Test 12/15/16 07:08 12/15/16 07:15 12/20/16 05:31 12/22/16 06:05 Urine Color Yellow (YELLOW) Urine Appearance Slightly cloudy Urine pH 6.0 (5.0-8.0) Urine Specific [place] 1.020 (1.003-1.035) Urine Protein 300mg/dL (NEG,TRACE) Urine Glucose (UA) Negativemg/dL (NEGATIVE) Urine Ketones Negativemg/dL (NEGATIVE) Urine Occult Blood Moderate (NEGATIVE) Urine Nitrite Negative (NEGATIVE) Urine Bilirubin Negative (NEGATIVE) Urine Urobilinogen Normalmg/dL (NORMAL) Urine Leukocyte Esterase Moderate (NEGATIVE) Urine RBC 3-10/hpf (0-2) Urine WBC >50/hpf (0-5) Urine Epithelial Cells Occasional/hpf (NONE-MOD) Urine Crystals None seen (NONE SEEN) Urine Bacteria Many/hpf (NONE-FEW) Urine Hyaline Casts None/lpf (NONE) Urine Granular Casts None seen (NONE SEEN) Urine Waxy Casts None seen (NONE SEEN) Urine Red Blood Cell Casts None seen (NONE SEEN) Urine White Blood Cell Casts None seen (NONE SEEN) Urine Mucus None seen (None Seen) Urine Trichomonas None seen (NONE SEEN) Urine Yeast None (NONE SEEN) Urinalysis Comment None Urine Culture Reflexed Indicated Lactic Acid Level 1.2mmol/L (0.4-2.0) Troponin T 0.010ug/L (0.0-0.011) Band Neutrophils % 4% (1-5) Metamyelocytes % 1% (0-0) Hemoglobin A1c 7.2% (4.8-5.6) Total Bilirubin 0.2mg/dL (0.0-1.2) Aspartate Amino Transf (AST/SGOT) 21U/L (0-50) Alanine Aminotransferase (ALT/SGPT) 22U/L (0-32) Alkaline Phosphatase 128U/L (25-150) Total Protein 4.5g/dL (6.4-8.4) Albumin 2.2g/dL (3.4-5.0) White Blood Count 16.6th/mm3 (3.8-10.1) Red Blood Count 3.64mil/mm3 (3.90-5.20) Hemoglobin 10.5g/dL (12.0-15.6) Hematocrit 32.1% (35.0-46.0) Mean Corpuscular Volume 88.2fL (81-100) Mean Corpuscular Hemoglobin 28.8pg (27.0-35.0) Mean Corpuscular Hemoglobin Concent 32.7% (32.0-37.0) Red Cell Distribution Width 14.9% (12.3-15.4) Platelet Count 284bil/L (150-400) Neutrophils (%) (Auto) 60.1% (40-74) Lymphocytes (%) (Auto) 25.5% (14-46) Monocytes (%) (Auto) 7.8% (4-12) Eosinophils (%) (Auto) 2.1% (0-5) Basophils (%) (Auto) 0.6% (0-3) Sodium Level 146mEq/L (134-144) Potassium Level 4.6mEq/L (3.5-5.2) Chloride Level 113mEq/L (97-108) Carbon Dioxide Level 17mmol/L (18-29) Blood Urea Nitrogen 20mg/dL (6-24) Creatinine 1.12mg/dL (0.57-1.00) Estimat Glomerular Filtration Rate 72mL/min (>59) Glucose Level 132mg/dL (60-99) Calcium Level 8.8mg/dL (8.5-10.1) Magnesium Level 1.4mg/dL (1.6-2.6) Procalcitonin 0.66ng/mL (0.00-0.08) Discharge Medications Discharge Medications Ertapenem Sodium (Invanz) 1,000 Mg/10 Ml Vial 1,000 MG IM Q24H Prescribed by: JULIO CARRION MD Gabapentin (Gabapentin) 600 Mg Tablet 600 MG PO TID (Reported) Hydrochlorothiazide (Hydrochlorothiazide) 12.5 Mg Tablet 12.5 MG PO DAILY ( Reported) Insulin Glargine,Hum.rec.anlog ([place] Solostar) 300 Unit/Ml (1.5 Ml) Insuln.pen 20 UNITS SC HS (Reported) Losartan Potassium (Losartan Potassium) 25 Mg Tablet 25 MG PO BID (Reported) Lovastatin (Lovastatin) 20 Mg Tablet 20 MG PO DAILY (Reported) Nortriptyline (Nortriptyline) 75 Mg Capsule 75 MG PO DAILY (Reported) Sitagliptin Phos (Januvia) 100 Mg Tablet 50 MG PO DAILY (Reported) Tizanidine (Tizanidine) 4 Mg Tablet 4 MG PO TID (Reported) Trazodone (Trazodone) 50 Mg Tablet 50-100 MG PO HS (Reported) Venlafaxine ER (Venlafaxine ER) 150 Mg Cap.er.24h 150 MG PO DAILY (Reported) hydrOXYzine Hcl (HydrOXYzine Hcl) 25 Mg Tablet 50 MG PO HS (Reported) As needed oxyCODONE (oxyCODONE) 5 Mg Tablet 5 MG PO TID PRN PRN For Pain (Reported) Followup Plan Disposition: Home with home health Follow-up plan 1. Followup with primary care provider within one week to further address hypertension, diabetes, and renal function Discharge Diet: Low fat, Low Sodium, Heart Healthy, Diabetic Discharge Activity: Home Health Phyical Therapy Patient Instructions Seek immediate medical attention if any new or worsening signs or symptoms occur. Follow-up Provider: Shasha Sharif PA-C Time spent 30 min copies to: Shasha Sharif PA-C, Masoud Dec 22, 2016 16:26
== END 2016-12-22 13:29 | disposition home or self-care (01) | DRG 872 ==
LOC: SED 06:34 → MPC 09:30
PROVIDERS: ADMIT Family Medicine; ATTEND Internal Medicine
DX: A41.51 Sepsis due to Escherichia coli [E. coli] (principal); N10 Acute pyelonephritis; E87.0 Hyperosmolality and hypernatremia; N17.9 Acute kidney failure, unspecified; Z16.12 Extended spectrum beta lactamase (ESBL) resistance; I10 Essential (primary) hypertension; E86.0 Dehydration; E83.42 Hypomagnesemia; G89.29 Other chronic pain; E11.8 Type 2 diabetes mellitus with unspecified complications; F41.8 Other specified anxiety disorders; Z88.0 Allergy status to penicillin; Z98.84 Bariatric surgery status; Z79.4 Long term (current) use of insulin

== ENCOUNTER 2017-01-01 03:31 | Inpatient (IN) | payer MEDICARE, MEDICAID ==
[~2017-01-01] VITALS: Ht 162.6 cm; Wt 79.1 kg
[2017-01-01] VITALS (11 sets, daily range): BP systolic 122–198; BP diastolic 50–104; PULSE 81–112; RESP 16–21; O2SAT 90–100
[~2017-01-01 03:31] MED LIST: GABA600T2 PO; HYDR-656 PO; HYDR12.55 PO; INSU300I SC; INVANZ1I IM; LOSA25TA21 PO; LOVA20TA PO; NORT75CA PO; OXYC5TAB72 PO; SITA100T12 PO; TIZA4TAB4 PO; TRAZ-115 PO; VENL150C98 PO
--- NOTE | 2017-01-01 04:41 | ED.REPORT ---
HPI-General Illness Date of Service Jan 01, 2017 ED Provider: Rubén Lim MD Pt is a 56 year old female with a hx of DM and HTN presenting to the ED via EMS complaining of fever and chills onset around 1200 yesterday. Associated symptoms include right sided back pain, weakness, fatigue, and a cough. She was hospitalized December 15- for a UTI and sepsis and was discharged to [facility] to recuperate. Denies any dysuria, SOB, or any other symptoms at this time. Nursing Notes Stated Complaint: HIGH BLOOD PRESSURE, FEVER Chief Complaint: General Complaint Nursing Notes Reviewed: Yes Allergies: Coded Allergies: Penicillins (Verified Allergy, Intermediate, Hives, 01/01/17) latex (Verified Allergy, Intermediate, Rash, 01/01/17) sulfamethoxazole (Verified Allergy, Unknown, hyperkalemia, 01/01/17) trimethoprim (Verified Allergy, Unknown, hyperkalemia, 01/01/17) isradipine (Verified Adverse Reaction, Severe, hyperkalemia, 01/01/17) Scheduled Ertapenem Sodium (Invanz) 1,000 Mg/10 Ml Vial 1,000 MG IM Q24H Gabapentin (Gabapentin) 600 Mg Tablet 600 MG PO TID Hydrochlorothiazide (Hydrochlorothiazide) 12.5 Mg Tablet 12.5 MG PO DAILY Insulin Glargine,Hum.rec.anlog ([place] Solostar) 300 Unit/Ml (1.5 Ml) Insuln.pen 20 UNITS SC HS Losartan Potassium (Losartan Potassium) 25 Mg Tablet 25 MG PO BID Lovastatin (Lovastatin) 20 Mg Tablet 20 MG PO DAILY Nortriptyline (Nortriptyline) 75 Mg Capsule 75 MG PO DAILY Sitagliptin Phos (Januvia) 100 Mg Tablet 50 MG PO DAILY Tizanidine (Tizanidine) 4 Mg Tablet 4 MG PO TID Trazodone (Trazodone) 50 Mg Tablet 50-100 MG PO HS Venlafaxine ER (Venlafaxine ER) 150 Mg Cap.er.24h 150 MG PO DAILY hydrOXYzine Hcl (HydrOXYzine Hcl) 25 Mg Tablet 50 MG PO HS Scheduled PRN oxyCODONE (oxyCODONE) 5 Mg Tablet 5 MG PO TID PRN PRN For Pain General Time Seen by MD: 04:34 Chief Complaint Fever Hx Obtained From: Patient, EMS Arrived By: Ambulance Sudden in Onset?: No Onset Occurred: Yesterday Symptom Duration: Since onset Location: : Back Quality: Painful Severity: Current: Mild Severity: Maximum: Moderate Recent Healthcare: Recent doctor visit, Recent hospitalization Similar Sx Previous: Yes Past Medical History Past Medical History Hypertension Anxiety Chronic pain DM2 Hip Fracture Past Surgical History Hip surgery Smoking History Unknown if Ever Smoker Social History Other Social History: Good social support Ambulatory Status Independent Review of Systems Full Review of Systems Constitutional: Reports: Chills, Fatigue, Fever, Weakness - generalized Respiratory: Reports: Non-productive cough, Denies: Shortness of breath Female: Denies: Dysuria Musculoskeletal: Reports: Back pain Complete sys rev & neg: except as marked. Physical Exam Vital Signs Vital Signs Date Time Temp Pulse Resp B/P Pulse Ox O2 Delivery O2 Flow Rate FiO2 01/01/17 06:27 39.1 110 17 152/75 93 Room Air 01/01/17 05:33 112 20 158/73 100 Room Air 01/01/17 04:32 107 21 198/104 94 Room Air 01/01/17 03:37 39.5 107 18 197/86 95 Room Air Initial VS: Reviewed Head / Eyes: Atraumatic, Normocephalic, PERRL ENT: Mucous membranes moist, Conjunctiva normal, No scleral icterus Neck: Supple, Non-tender, Full range of motion Respiratory: Breath sounds normal, Clear to auscultation, No respiratory distress Abdomen / GI: Soft, Non-tender, No guarding, No rebound, No distention Extremities: Vascular intact, Neuro intact, No swelling, No tenderness Neurologic: Alert, Oriented, Nonfocal Psychiatric: Mood/affect normal, Behavior normal, Normal thought content General/Constitutional: Awake, Alert Appearance / Presentation: Positive: Pale Cardiovascular: Regular rhythm, Heart sounds NL Heart Rate / Rhythm: Positive: Tachycardia Interpretation & Diagnostics Lab Results Interpretation Result Diagram: 01/01/17 0425 01/01/17 0425 Test 01/01/17 04:25 01/01/17 05:45 White Blood Count 15.7th/mm3 (3.8-10.1) Red Blood Count 3.88mil/mm3 (3.90-5.20) Hemoglobin 11.4g/dL (12.0-15.6) Hematocrit 36.0% (35.0-46.0) Mean Corpuscular Volume 92.8fL (81-100) Mean Corpuscular Hemoglobin 29.4pg (27.0-35.0) Mean Corpuscular Hemoglobin Concent 31.7% (32.0-37.0) Red Cell Distribution Width 14.7% (12.3-15.4) Platelet Count 413bil/L (150-400) Neutrophils (%) (Auto) 74.2% (40-74) Lymphocytes (%) (Auto) 14.7% (14-46) Monocytes (%) (Auto) 8.8% (4-12) Eosinophils (%) (Auto) 1.5% (0-5) Basophils (%) (Auto) 0.4% (0-3) Hold Purple Top Tube Received (Received) Hold Blue Top Tube Received (Received) Sodium Level 140mEq/L (134-144) Potassium Level 6.5mEq/L (3.5-5.2) Chloride Level 105mEq/L (97-108) Carbon Dioxide Level 20mmol/L (18-29) Blood Urea Nitrogen 19mg/dL (6-24) Creatinine 1.08mg/dL (0.57-1.00) Estimat Glomerular Filtration Rate 75mL/min (>59) Glucose Level 140mg/dL (60-99) Lactic Acid Level 1.7mmol/L (0.4-2.0) Calcium Level 9.4mg/dL (8.5-10.1) Magnesium Level 1.1mg/dL (1.6-2.6) Total Bilirubin 0.3mg/dL (0.0-1.2) Aspartate Amino Transf (AST/SGOT) 58U/L (0-50) Alanine Aminotransferase (ALT/SGPT) 42U/L (0-32) Alkaline Phosphatase 133U/L (25-150) Troponin T 0.010ug/L (0.0-0.011) Total Protein 6.8g/dL (6.4-8.4) Albumin 3.0g/dL (3.4-5.0) Lipase 65U/L (13-60) Hold Red Top Tube Received (Received) Hold [place] Top Tube Received (Received) Hold [place] Top Tube Received (Received) Urine Color Straw (YELLOW) Urine Appearance Slightly cloudy Urine pH 5.5 (5.0-8.0) Urine Specific [place] 1.011 (1.003-1.035) Urine Protein 100mg/dL (NEG,TRACE) Urine Glucose (UA) Negativemg/dL (NEGATIVE) Urine Ketones Negativemg/dL (NEGATIVE) Urine Occult Blood Small (NEGATIVE) Urine Nitrite Negative (NEGATIVE) Urine Bilirubin Negative (NEGATIVE) Urine Urobilinogen Normalmg/dL (NORMAL) Urine Leukocyte Esterase Negative (NEGATIVE) Urine RBC 0-2/hpf (0-2) Urine WBC 0-5/hpf (0-5) Urine Epithelial Cells Few/hpf (NONE-MOD) Urine Crystals Amorphous urates (NONE Urine Bacteria Few/hpf (NONE-FEW) Urine Hyaline Casts None/lpf (NONE) Urine Granular Casts None seen (NONE SEEN) Urine Waxy Casts None seen (NONE SEEN) Urine Red Blood Cell Casts None seen (NONE SEEN) Urine White Blood Cell Casts None seen (NONE SEEN) Urine Mucus None seen (None Seen) Urine Trichomonas None seen (NONE SEEN) Urine Yeast None (NONE SEEN) Urinalysis Comment None Urine Culture Reflexed Not indicated ECG Interpretation ECG Interpretation: Sinus tachycardia with a rate of 111. Left anterior fascicular block. Tall peaked T-waves compared to 12/15/16 c/w K 6.7. Time: 05:35 Interpreted by: ED physician X-Ray Chest Interpretation Chest Xray Interpretation: Normal. View: Portable, 1 view Interpretation / Wet Read by: Wet read ED physician Re-Eval/Medical Decision Med Decision/Clinical Course 56-year-old female with a recent urinary tract infection with sepsis presents with recurrent symptoms shortly after finishing her antibiotics. Sepsis workup was initiated. She is tachycardic and febrile. Rocephin was ordered to be given after cultures. Her care is being turned over change of shift to Dr. Elin Cowan with labs pending. Time of Eval: 05:57 Patient Status: Condition improved Re-Evaluation/Progress Note: Care transferred to Dr. Cowan. Pt understands and agrees with plan. Counseled Regarding: Diagnosis, Lab results, Need for admission Discharge & Departure Primary Impression: Urinary tract infection Urinary tract infection type: site unspecified Hematuria presence: without hematuria Qualified Code: N39.0 - Urinary tract infection, site not specified Additional Impression: Sepsis Sepsis type: sepsis due to unspecified organism Qualified Code: A41.9 - Sepsis, unspecified organism Disposition: ADMITTED TO HOSPITAL Discharge Condition All VS Reviewed: Yes Condition: Improved Referrals: Shasha Sharif PA-C (PCP) Care Transferred to: Transferred to Dr. Cowan Care Transferred at: 06:00 Scribe Attestation Portions of this note were transcribed by Viola Coronado. I, Dr. Lim personally performed the history, physical exam and medical decision-making; I reviewed and confirmed the accuracy of the information in the transcribed note. Signed by: Verna Mittal, 01/01/2017 at 0600. copies to: Shasha Sharif PA-C, Howard L MD Jan 01, 2017 04:40 VIOLA CORONADO Jan 01, 2017 04:48
[2017-01-01] MEDS ORDERED: cefTRIAXone Inj 2,000 MG in Dextrose 5% Minibag Plus 50 ML IV ONE (04:45)
[2017-01-01] MEDS ORDERED: 0.9% Sodium Chloride 1,000 ML IV ONE (04:45)
[2017-01-01 04:56] LABS: BASOPHILS % (AUTO) 0.4 % (0-3); EOSINOPHILS % (AUTO) 1.5 % (0-5); MONOCYTES % (AUTO) 8.8 % (4-12); Mean Corpuscular Hemoglobin 29.4 pg (27.0-35.0); Mean Corpuscular Volume 92.8 fL (81-100); NEUTROPHILS % (AUTO) 74.2 % (40-74); Platelet Count 413 bil/L (150-400)
[2017-01-01 05:07] LABS: TROPONIN T 0.01 ug/L (0.0-0.011)
[2017-01-01] MEDS ORDERED: HYDROcodone-APAP 10-325 mg PO ONE (05:30)
[2017-01-01 05:32] LABS: Magnesium 1.1 mg/dL (1.6-2.6)
[2017-01-01] MEDS ORDERED: Insulin Human REGular-Omnicell 100 Unit/mL IV ONE (05:35)
[2017-01-01] MEDS ORDERED: Sodium Polystyrene Sulfonate 0.25 Gm/mL 500 mL Suspension PO ONE (05:35)
[2017-01-01] MEDS ORDERED: Calcium GLUCOnate 10% (Gm) 1 Gm/10 mL Inj IVPUSH PRN (05:35)
[2017-01-01] MEDS ORDERED: Dextrose 10% 250 ML IV ONE (05:59)
[2017-01-01] MEDS ORDERED: 0.9% Sodium Chloride 50 ML ONE (06:00)
[2017-01-01 06:12] LABS: APPEARANCE,URINE SLIGHTLY CLOUDY (CLEAR,HAZY); COLOR,URINE STRAW (YELLOW); OCCULT BLOOD,URINE SMALL (NEGATIVE); PH,URINE 5.5 (5.0-8.0); UROBILINOGEN,URINE NORMAL (NORMAL)
[2017-01-01] MEDS ORDERED: Ertapenem Inj 1,000 MG in 0.9% Sodium Chloride 50 ML IV ONE (07:25)
--- NOTE | 2017-01-01 07:52 | DRSVH ---
PROCEDURE: X-RAY CHEST ONE VIEW, PORTABLE ([id number]) INDICATIONS: sepsis TECHNIQUE: One view of the chest was acquired. COMPARISON: [facility], CR, XR CHEST 1VW (PORTABLE), 12/15/2016, 7:01. [facility], CR, XR CHEST 1VW (PORTABLE), 09/07/2016, 15:19. FINDINGS: Surgical changes and devices: Cervical fusion hardware. Lungs and pleura: No pleural effusions or pneumothorax. Lungs are clear. Mediastinum: Mediastinal contours appear normal. Heart size is normal. Bones and chest wall: No suspicious bony lesions. Overlying soft tissues appear unremarkable. IMPRESSION: No acute process. Dictated by: Yue Servin M.D. on 01/01/2017 at 7:50 Approved by: Yue Servin M.D. on 01/01/2017 at 7:50
[2017-01-01] MEDS ORDERED: MAGN400C PO (08:49)
[2017-01-01] MEDS ORDERED: ACET325T51 PO (08:51)
[2017-01-01] MEDS ORDERED: OXYC-465 PO (08:51)
[2017-01-01] MEDS ORDERED: Polyethylene Glycol (PEG) 17 Gm Powder PO PRN (09:10)
[2017-01-01] MEDS ORDERED: Ondansetron 2 mg/mL 2 mL Inj IVPUSH PRN (09:10)
[2017-01-01] MEDS ORDERED: Alum-Mag Hydrox-Simeth 30 mL Suspension PO PRN (09:10)
--- NOTE | 2017-01-01 09:20 | PCM.HPMED ---
Subjective Date of Service Jan 01, 2017 Primary Provider: Admitting Physician: Primary Care Physician: Shasha Sharif PA-C Attending Physician: Chief Complaint: Fever and chills during this morning History of Present Illness: Patient is 56-year-old female with past medical history significant for diabetes , hypertension, and recently diagnosed with resistant urinary tract infection treated for 1 week in the hospital with ertapenem and discharged home soon after admitted to skilled nurse facility for rehabilitation. She has been in the rehabilitation facility now for a little more than 1 week at [facility] for recuperation, states she had been doing better up until this morning when she began experiencing sweats and chills. She denies any recurrent dysuria or frequency and she is, but given recent history had concern for infection and presented to emergency department. In ER she was noted to have an elevated temperature in addition to leukocytosis prompting admission for further evaluation and treatment of recurrent infection. Following treatment in the emergency department with fluids and the antibiotics, he felt significantly improved but still concerned about the happenings earlier today. Notes she is still feeling weak, but this had been the case since discharge which is what prompted her admission to [facility] facility. Denies any palpitations or chest pains at any point. SHe has had some cough since yesterday evening which is nonproductive, but is not usual for her. Otherwise she has no other acute complaints. Appetite is good. She is stooling normally denies any diarrhea or constipation. Review of Systems: A 10 point review of systems is conducted and entirely negative excepting pertinent positives and negatives included above in history of present illness Allergies Coded Allergies: Penicillins (Verified Allergy, Intermediate, Hives, 01/01/17) latex (Verified Allergy, Intermediate, Rash, 01/01/17) sulfamethoxazole (Verified Allergy, Unknown, hyperkalemia, 01/01/17) trimethoprim (Verified Allergy, Unknown, hyperkalemia, 01/01/17) isradipine (Verified Adverse Reaction, Severe, hyperkalemia, 01/01/17) Home Medications Ertapenem Sodium (Invanz) 1,000 Mg/10 Ml Vial 1,000 MG IM Q24H Gabapentin (Gabapentin) 600 Mg Tablet 600 MG PO TID Hydrochlorothiazide (Hydrochlorothiazide) 12.5 Mg Tablet 12.5 MG PO DAILY Insulin Glargine,Hum.rec.anlog ([address]) 300 Unit/Ml (1.5 Ml) Insuln.pen 20 UNITS SC HS Losartan Potassium (Losartan Potassium) 25 Mg Tablet 25 MG PO BID Lovastatin (Lovastatin) 20 Mg Tablet 20 MG PO DAILY Nortriptyline (Nortriptyline) 75 Mg Capsule 75 MG PO DAILY Sitagliptin Phos (Januvia) 100 Mg Tablet 50 MG PO DAILY Tizanidine (Tizanidine) 4 Mg Tablet 4 MG PO TID Trazodone (Trazodone) 50 Mg Tablet 50-100 MG PO HS Venlafaxine ER (Venlafaxine ER) 150 Mg Cap.er.24h 150 MG PO DAILY hydrOXYzine Hcl (HydrOXYzine Hcl) 25 Mg Tablet 50 MG PO HS Scheduled PRN oxyCODONE (oxyCODONE) 5 Mg Tablet 5 MG PO TID PRN PRN For Pain PMH Hypertension Anxiety Chronic pain DM2 Hip Fracture Surgical History Surgical repair of pelvic fracture with plate and screws Surgical repair of femoral fracture with screws Surgical neck fusion Social History Hx Alcohol Use: No Hx Substance Use: No Hx Tobacco Use: No Smoking Status: Unknown if Ever Smoker Exam Vital Signs Vital Sign - Last Date Time Temp Pulse Resp B/P Pulse Ox O2 Delivery O2 Flow Rate FiO2 01/01/17 08:21 37.5 101 18 149/62 93 Room Air Intake and Output 12/31/16 12/31/16 01/01/17 Cumulative From/Thru 15:00 23:00 07:00 01/01/17 03:37 - 01/01/17 06:16 Intake Total 1050 ml 1050 ml Balance 1050 ml 1050 ml Intake IV Total 1050 ml 1050 ml General: Oriented X3, Cooperative, Moderate Distress Mouth: Mucous Membr Moist/[place] Chest & Lungs: Clear to auscultation & percussion Cardiovascular: Regular Rate/Rhythm, Other (?murmur, systolic) Abdomen: Non-tender, Non-distended Extremities: No cyanosis/clubbing/edma bilat Neurological: Cranial Nerves 2-12 Intact Lab and Diagnostics Result Diagram: 01/01/1742401/01/17424 Assessment & Plan 56 YO F presenting via EMS from SNF following recent discharge from hospital following UTI with deconditioning, now representing with fever/chills and weakness, concern for recurrent infection #. SIRS, unclear source of infection. Possible causes include recurrent urinary tract infection, ulcers pending. Hospital-acquired pneumonia, x-ray negative but will follow up CT scan. - Based on pt aye/previous sensitieis pt will be continued of Erapenem, only discontinued a few days prior - Possibility of kidney stone or other reservoir for this infection in pt, may account for rapidity of recurrence - KUB to screen for kidney stone, in addition to Echo to further concider possible heart vegetation has been ordered and currently pending - CT scan ordered to evaluate for other possibilities such as hospital-acquired pneumonia - Continue IVFs at 100cc/hr at this time - Dr Worthy review case over phone, not in hospital this week but recommending restarting ERtapenem as noted above - Blood and urine cultures are pending. #Hyperkalemia - Cause unclear - Pt is on ARB which will be held - Already provided: INsulin/Glucose and Kayexalate in ER in addition to Calcium Gluconate - Continuous telemetry ordered - FU BMP pending following interventions. #Magnesium - IV repletion ordered and pending - Continue to trend #. Deconditioning - Pt presents from SNF - Will consult PT to evaluate and treat. #Hypertension - Continue all home medications except in losartan in the setting of hyperkalemia. Pain Evaluation: Adequate Pain Control VTE Mechanical Devices: Intermittant Pneumatic CD Resuscitation Status: CPR: Attempt Resuscitation Time spent 55 minutes Pieter Blackburn DO Jan 01, 2017 09:20
[2017-01-01] MEDS ORDERED: Magnesium Sulf 4 Gm/100 mL H2O 4 GM in IV Premix 1 EACH IV ONE (09:25)
[2017-01-01] MEDS: 0.9% Sodium Chloride 1,000 ML IV SCH ×2 (09:43→18:05)
--- NOTE | 2017-01-01 09:51 | DRSVH ---
PROCEDURE: CT KUB ([id number]) INDICATIONS: recurrent multidrug resistant UTI TECHNIQUE: Noncontrast 5 mm thick sections acquired from the diaphragms to the symphysis. 5 mm thick coronal an d sagittal reformats were then performed. For radiation dose reduction, the following was used: aut omated exposure control, adjustment of mA and/or kV according to patient size. COMPARISON: [facility], CT, CT ABD PELVIS WO CON, 12/15/2016, 9:09. FINDINGS: Image quality: Excellent. Lung bases: There is increased moderate patchy airspace opacity within the left lung base. Heart size is normal. Urinary system: Both kidneys are normal in size. No kidney stones. No hydronephrosis. Moderate per inephric fat stranding is present bilaterally. Both ureters appear non-dilated throughout their expec helga courses. Bladder wall thickness is normal; no calcified bladder stones. Other solid organs: Liver and spleen are normal in size. Gallbladder is surgically absent. Pancrea s is normal in contours. No adrenal nodules. Peritoneum and bowel: Gastric bypass has been performed. Unenhanced bowel loops demonstrate normal wa ll thickness and caliber. No free fluid or air. Normal appendix. Nodes and vessels: No retroperitoneal or mesenteric adenopathy by size criteria. Aorta and inferior vena cava are normal in caliber. Abdominal wall: Increased, 60 mm diameter fat containing anterior abdominal wall hernia containing a new small amount of ascites. Pelvis: No free pelvic fluid. No inguinal hernias or adenopathy. Bones: No suspicious bony lesions. Bilateral L5-S1 pars interarticularis defects are present associa helga with grade I anterolisthesis of L5 on S1. No vertebral body compression fractures. IMPRESSION: 1. No evidence of urinary tract calcification, nor obstruction. Perinephric fat stranding, consistent with urinary tract infection. 2. Increased airspace opacity within the left lung base, consistent with pneumonia. Follow up plain f ilms of the chest are recommended to ensure resolution, and to exclude underlying or central malignan cy. 3. Normal appendix. 4. Increased ventral abdominal wall hernia. 5. Bilateral L5-S1 pars interarticularis defect associated with anterolisthesis of L5 on S1. Dictated by: Yue Servin M.D. on 01/01/2017 at 9:46 Approved by: Yue Servin M.D. on 01/01/2017 at 9:50
--- NOTE | 2017-01-01 10:45 | NUR ---
Admission Patient reports she was recently discharged from [facility] (December 15) for an antibiotic resistant urinary tract infection with sepsis. Patient was discharged to [facility]. This morning she was alternating between having chills and sweating and came to the ER. Patient denied urinary difficulty, burning or frequency. Patient reports low back and side pain. Urine culture pending.
--- NOTE | 2017-01-01 13:03 | NUR ---
Evaluation completed. Please go to "Notes" then click on "Assessments and Notes" (bottom left corner of screen). Then select appropriate discipline tab on top of screen.
--- NOTE | 2017-01-01 15:57 | DRSVH ---
[facility] [address] [place] [address] Echocardiogram Report Name: XOCHILT RAMIREZ KStudchandan Gustavo e: 01/01/2017 Height: 64 in Hospital Exam Location: [facility] Weight: 160 lb Gender: Female BSA: 1.8 m2 : 1960 Age: 56 yrs BP: 122/ 50 mmHg Reason For Study: Murmur, vegetations Ordering Physician: Baltazar Palacios Performed By: Max Kumar Referring Physician: ARMANI LOMBARDO Interpretation Summary There is mild-moderate concentric left ventricular hypertrophy. Left ventricular systolic function is normal without focal wall motion abnormalities. The ejection fraction is estimated to be 60-65%. Assessment of diastolic parameters indicates a relaxation abnormality of the left ventricle, consistent with normal filling pressures. The right ventricle is normal in size, thickness and function. Pulmonary artery pressures cannot be estimated because of the lack of a measurable TR jet velocity. The left atrial size is normal. Right atrial size is normal. There is mild aortic valve sclerosis. There is discrete nodular thickening of the left coronary cusp. No aortic regurgitation is present. There is no other significant valvular heart disease. The ascending aorta is mildly enlarged. No gross evidence for endocarditis. If highly suspicious, then cosider ABA. Procedure: A two-dimensional transthoracic echocardiogram with color flow and Doppler was performed. The study quality was technically adequate. There is no prior echocardiogram noted for this patient. The patient was in normal sinus rhythm during the exam. Left Ventricle: The left ventricle is normal in size. There is mild- moderate concentric left ventricular hypertrophy. Left ventricular systolic function is normal without focal wall motion abnormalities. The ejection fraction is estimated to be 60-65%. Assessment of diastolic parameters indicates a relaxation abnormality of the left ventricle, consistent with normal filling pressures. Right Ventricle: The right ventricle is normal in size, thickness and function. Atria: The left atrial size is normal. Right atrial size is normal. The interatrial septum is intact with no evidence for an atrial septal defect. Mitral Valve: There is moderate mitral annular calcification. The mitral valve leaflets appear mildly thickened, but open well. There is no mitral regurgitation noted. Aortic Valve: The aortic valve is trileaflet. There is mild aortic valve sclerosis. The aortic valve opens well. There is discrete nodular thickening of the left coronary cusp. No aortic regurgitation is present. Tricuspid Valve: The tricuspid valve is normal. Pulmonary artery pressures cannot be estimated because of the lack of a measurable TR jet velocity. There is a trace or physiologic amount of tricuspid regurgitation. Pulmonic Valve: The pulmonic valve leaflets are thin and pliable; valve motion is normal. There is no pulmonic valvular regurgitation. There is no other significant valvular heart disease. Great Vessels: The aortic root is normal size. The ascending aorta is mildly enlarged. The pulmonary artery is normal size. The IVC is of normal diameter and collapses greater than 50% with a sniff. This suggests a low right atrial pressure of 3 mm Hg. Pericardium/ Pleura There is no pericardial effusion. There is no pleural effusion. MMode/2D Measurements & Calculations LVIDd: 4.0 cm RA long axis LVOT diam: 2.2 cm LVIDs: 2.6 cm LA A2 area: 15.4 cm AoV Opening FS: 36.5 % LA A4 area: 20.8 cm RA area EPSS: 0.51 cm LA length (vol) Ao root diam IVSd: 1.2 cm : 10.9 cm LVPWd: 1.3 cm LA vol: 50.7 ml RA vol asc Aorta Diam LA vol index : 23.6 ml RA Ao Arch Diam (Prox : 13.3 mm2 Trans): 3.0 cm IVC diam: 1.8 cm LV villela. diameter/BSA LV sys. diameter/BSA TAPSE: 2.2 cm (cm/m^2): 2.3 (cm/m^2): 1.4 Doppler Measurements & Calculations Ao V2 max MV E max raymond MV E/A: 0.66 PA V2 max : 154.2 cm/sec : 70.9 cm/sec Med Peak E' Raymond : 107.7 cm/sec Ao max P.5 mmHg MV A max raymond PA mean PG Ao mean P.7 mmHg : 106.6 cm/sec E/E' med: 11.3 : 2.1 mmHg LVOT Max Raymond Lat Peak E' Raymond : 93.0 cm/sec E/E' lat: 10.6 ENIO(I,D): 2.3 cm E/e' average sev ratio: 0.63 MV dec time: 0.18 sec Ao V2 mean LV V1 max PG PA V2 mean : 101.5 cm/sec : 69.8 cm/sec Ao V2 VTI: 26.6 cmLV V1 VTI: 16.8 cm PA pr(Accel) : 36.6 mmHg ENIO(V,D): 2.2 cm2 ENIO indexed to BSA (cm^2/m^2): 1.3 Reading Physician:PM
[2017-01-01] MEDS ORDERED: Glucose 40% Oral Gel 15 Gm Tube PO PRN (17:10)
[2017-01-01] MEDS ORDERED: MeTOProlol 1 mg/mL 5 mL Inj IVPUSH ONE (17:10)
[2017-01-01] MEDS: Insulin LISPRO 300 Unit/3 mL Inj SUBQ SCH ×2 (17:18→22:00)
[2017-01-01] MEDS ORDERED: Venlafaxine XR 75 mg ER24 Capsule PO SCH (17:25)
--- NOTE | 2017-01-01 20:12 | DRSVH ---
PROCEDURE: CT CHEST WITHOUT CONTRAST ([id number]) INDICATIONS: possible pneumonia not visualized on XR TECHNIQUE: Noncontrast 5 mm thick sections acquired from the pulmonary apices to the posterior costophrenic angl es. 7 mm thick coronal and sagittal MIP reformats were then acquired. For radiation dose reduction, the following was used: automated exposure control, adjustment of mA and/or kV according to patient size. COMPARISON: [facility], CR, XR CHEST 1VW (PORTABLE), 01/01/2017, 4:46. FINDINGS: Image quality: Excellent. Lungs and pleura: Mild left greater than right patchy airspace opacity within the bilateral posterior lung bases is present. No pleural effusions or pneumothorax. Central and peripheral airways are pat ent and normal in caliber. Mediastinum: Heart size is normal. No pericardial effusion. No mediastinal adenopathy by size crit eria. Thoracic aorta and central pulmonary arteries are normal in size. Esophagus is normal in jackie case. There is a small hiatal hernia. Bones and chest wall: No suspicious bony lesions. No vertebral body compression fractures. No axil christina or supraclavicular adenopathy by size criteria. Thyroid gland is suboptimally visualized second katia to spine fusion hardware artifact, but the left lobe appears to contain several low density nataliya s, largest of which is anterior measuring 26 mm.. Abdomen: Visualized upper abdominal solid organs and bowel loops appear normal in the absence of con trast. IMPRESSION: 1. Mild bibasilar atelectasis versus pneumonia. 2. Left thyroid masses, which could be further assessed with ultrasound, if clinically indicated. Dictated by: Yue Servin M.D. on 01/01/2017 at 20:08 Approved by: Yue Servin M.D. on 01/01/2017 at 20:11
[2017-01-01] MEDS: Insulin GLARgine 100 Unit/mL Syringe SUBQ SCH (21:28)
[2017-01-01] MEDS: oxyCODONE-Acetamin 5-325 mg Tablet PO PRN (21:29)
[2017-01-02] VITALS (7 sets, daily range): BP systolic 123–194; BP diastolic 78–107; PULSE 82–102; RESP 18–21; O2SAT 90–96
--- NOTE | 2017-01-02 02:31 | NUR ---
HTN Pt have a SBP of 180-190's and HR of 83. Pt is asymptomatic, HS meds administered. Will hold IVFMD notified. will review medication list. Continuing to monitor. Addendum: 01/02/17 at 0500 by LEANN RICHARDSON RN BP is still elevated 180/104. Will notify .
[2017-01-02] MEDS ORDERED: Labetalol 5 mg/mL 20 mL Inj IVPUSH ONE (02:45)
[2017-01-02] MEDS: oxyCODONE-Acetamin 5-325 mg Tablet PO PRN ×3 (04:56→20:03)
[2017-01-02 05:38] LABS: BASOPHILS % (AUTO) 0.5 % (0-3); EOSINOPHILS % (AUTO) 2.4 % (0-5); MONOCYTES % (AUTO) 16.5 % (4-12); Mean Corpuscular Hemoglobin 29.3 pg (27.0-35.0); Mean Corpuscular Volume 92.4 fL (81-100); NEUTROPHILS % (AUTO) 59.7 % (40-74); Platelet Count 326 bil/L (150-400)
[2017-01-02 06:09] LABS: Magnesium 1.6 mg/dL (1.6-2.6)
[2017-01-02] MEDS: Insulin LISPRO 300 Unit/3 mL Inj SUBQ SCH ×4 (08:00→21:56)
[2017-01-02] MEDS: Ertapenem Inj 1,000 MG in 0.9% Sodium Chloride 50 ML IV SCH (08:45)
[2017-01-02] MEDS: Venlafaxine XR 75 mg ER24 Capsule PO SCH (08:46)
[2017-01-02] MEDS: 0.9% Sodium Chloride 1,000 ML IV SCH ×2 (10:34→21:37)
[2017-01-02] MEDS ORDERED: Vancomycin 125 mg Oral Capsule PO SCH (11:20)
--- NOTE | 2017-01-02 12:46 | NUR ---
Social Work-initial assessment/ multidisciplinary rounds: Data:See initial assessment. Pt is a 56 y/o female who was admitted on 01/01/17 for UTI per H&P. Pt's insurance is [employer] and [facility] and PCP is JUDY Garcia. EMR Reviewed. Pt's readmission score is 3-high risk. SW met with pt at bedside to discuss discharge planning, SW role explained. Pt is a readmission discharging home with [facility] for IM abx and [facility]. Pt states that once she returned home she was admitted to [facility] from her PCP office because the IM abx were too much. Pt confirms she came from [facility] to the hospital. Pt uses a fww at baseline. Pt has [facility] caregivers at home and her CM is Tyree Ceballos, updated clinicals faxed. Pt confirms if she does not need abx at discharge she would prefer to return home. ID to see pt. SW confirmed with [facility] pt completed abx on 12/29. PT has cleared pt for home at discharge. SW provided pt with discharge planning checklist booklet and encouraged her to call with any questions. Phone number provided on white board in room. SW will continue to follow. Assessment:pt who has [facility] at home. Plan:Anticipate pt to discharge back to [facility] vs home with [facility] pending clinical course. If pt needs continued abx then pt will likely need to return to [facility]. SW will continue to follow. ONOFRE Mendiola Addendum: 01/02/17 at 1250 by CALVIN VOGEL Amended: Links added.
--- NOTE | 2017-01-02 13:43 | NUR ---
Stool: Stool sent for gastrointestinal panel, isolation precautions in place.
--- NOTE | 2017-01-02 14:25 | PCM.PNMED ---
Subjective Date of Service Jan 02, 2017 Subjective pt feels well, no cough, sputum, no chills, pt stated that she has had watery diarrhea chronically, denied abdominal pain, had burning with urination when she came in last hospitalization but not anymore Exam Vital Signs Vital Sign - Last Date Time Temp Pulse Resp B/P Pulse Ox O2 Delivery O2 Flow Rate FiO2 01/02/17 09:41 37.0 95 20 123/78 94 Room Air Intake and Output 01/01/17 01/01/17 01/02/17 Cumulative From/Thru 15:00 23:00 07:00 01/01/17 03:37 - 01/02/17 06:40 Intake Total 600 ml 1376 ml 3026 ml Output Total 875 ml 400 ml 1275 ml Balance -275 ml 976 ml 1751 ml Intake Oral 600 ml 600 ml 1200 ml IV Total 776 ml 1826 ml Output Urine Total 875 ml 400 ml 1275 ml Exam NAD, comfortably laying down on the bed no JVD, MMM, no LAD RRR, nl s1, s2 no mrg CTAB, no w,c S,ND,NT,normoactive BS+ warm, no edema, pulses 2/2 IVs and Medications Medications Reviewed: Medications were reviewed in detail Lab and Diagnostics Result Diagram: 01/02/1751901/02/17519 Assessment & Plan 56 YO F presenting via EMS from SNF following recent discharge from hospital following UTI with deconditioning, now representing with fever/chills and weakness, concern for recurrent infection #. SIRS, unclear source of infection. Possible causes include recurrent urinary tract infection, infectious diarrhea, x-ray and chest CT is underwhelming for pneumonia, patient denied having productive phlegm. -We will continue ertapenem for now -Get stool C. difficile today, empirically started vancomycin by mouth -Await final urine culture, ngtd - Continue IVFs at 100cc/hr at this time -as per discussion with Dr Worthy review per Dr. Mendes recommending restarting ERtapenem #Hyperkalemia, Cause unclear, ARB was held, patient received INsulin/Glucose and Kayexalate in ER in addition to Calcium Gluconate -Potassium level has been fluctuating, today4.5 - Continuous telemetry ordered - Daily chemistry #Magnesium - IV repletion ordered and pending - Continue to trend #. Deconditioning - Pt presents from SNF - Will consult PT to evaluate and treat. #Hypertension - Continue all home medications except in losartan in the setting of hyperkalemia. Disposition: Likely back to SNF once infection is cleared VTE Mechanical Devices: Intermittant Pneumatic CD Resuscitation Status: CPR: Attempt Resuscitation Time spent 35 minutes Timoteo Gonzalez MD Jan 02, 2017 11:29
[2017-01-02] MEDS: Insulin GLARgine 100 Unit/mL Syringe SUBQ SCH (21:54)
[2017-01-03] VITALS (11 sets, daily range): BP systolic 127–204; BP diastolic 70–102; PULSE 67–115; RESP 16–22; O2SAT 88–92
[2017-01-03] MEDS: oxyCODONE-Acetamin 5-325 mg Tablet PO PRN ×3 (01:01→17:19)
--- NOTE | 2017-01-03 01:20 | NUR ---
Fever Pt have a temp of 37.9. Administered Percocet 1.5tab. Will continue to monitor. Addendum: 01/03/17 at 0508 by LEANN RICHARDSON RN Fever went down to 37. Reports of flank pain. Controlled with Percocet. No n/v or abd discomfort observed. No bm noted yet.
[2017-01-03 05:55] LABS: BASOPHILS % (AUTO) 1.2 % (0-3); EOSINOPHILS % (AUTO) 4.4 % (0-5); MONOCYTES % (AUTO) 18.9 % (4-12); Mean Corpuscular Hemoglobin 28.5 pg (27.0-35.0); Mean Corpuscular Volume 93.7 fL (81-100); NEUTROPHILS % (AUTO) 36.7 % (40-74); Platelet Count 314 bil/L (150-400)
[2017-01-03 06:45] LABS: Magnesium 1.2 mg/dL (1.6-2.6)
[2017-01-03] MEDS ORDERED: Magnesium Sulf 2 Gm/50mL Water 2 GM in IV Premix 1 EACH IV ONE (07:35)
[2017-01-03] MEDS: Insulin LISPRO 300 Unit/3 mL Inj SUBQ SCH ×4 (07:50→22:00)
[2017-01-03] MEDS: Ertapenem Inj 1,000 MG in 0.9% Sodium Chloride 50 ML IV SCH (07:51)
[2017-01-03] MEDS: 0.9% Sodium Chloride 1,000 ML IV SCH ×3 (07:51→21:35)
[2017-01-03] MEDS: Venlafaxine XR 75 mg ER24 Capsule PO SCH (08:36)
--- NOTE | 2017-01-03 15:50 | PCM.PNMED ---
Subjective Date of Service Jan 03, 2017 Subjective pt started having more dry cough, noted SpO2 decreased to low90%, denied sputum, SOB stool PCR negative for infection, UCX ngtd Exam Vital Signs Vital Sign - Last Date Time Temp Pulse Resp B/P Pulse Ox O2 Delivery O2 Flow Rate FiO2 01/03/17 13:27 35.9 82 18 158/82 91 Room Air Intake and Output 01/02/17 01/02/17 01/03/17 Cumulative From/Thru 15:00 23:00 07:00 01/01/17 03:37 - 01/03/17 06:14 Intake Total 1220 ml 1132 ml 5378 ml Output Total 1200 ml 2475 ml Balance 20 ml 1132 ml 2903 ml Intake Oral 520 ml 1720 ml IV Total 700 ml 1132 ml 3658 ml Output Urine Total 1200 ml 2475 ml # Bowel Movements 0 0 Exam NAD, comfortably laying down on the bed no JVD, MMM, no LAD RRR, nl s1, s2 no mrg bibasilar crackle,s no wheezing S,ND,NT,normoactive BS+ warm, no edema, pulses 2/2 IVs and Medications Medications Reviewed: Medications were reviewed in detail Lab and Diagnostics Result Diagram: 01/03/1752201/03/17522 Assessment & Plan 56 YO F presenting via EMS from SNF following recent discharge from hospital following UTI with deconditioning, now representing with fever/chills and weakness, concern for recurrent infection acute, active #Possible infectious state, POA, mostly likely PNA although X-ray and chest CT was underwhelming for pneumonia on admission, pt developed more cough with hypoxia, possible UTI given multiple hx of UTI. ruled out infectious colitis with negative stool PCR -pt remained clinically stable, fever curve subsiding down, therefore will continue ertapenem for now -Await final urine culture, ngtd -Continue IVFs at 100cc/hr at this time -as per discussion with Dr Worthy and Dr. Mendes, Ertapenem was restarted #Magnesium, POA, possibly due to GI fluid loss with persistent diarrhea, continue to trend, replete as needed chronic, stable, resolved # SIRS, POA, met 3/4+ fever/HR/wbc, probably sepsis on admission, with unclear source of infection, resolved #Hyperkalemia, Cause unclear, ARB was held, patient received INsulin/Glucose and Kayexalate in ER in addition to Calcium Gluconate, initially 6.5, resolved. #Hypertension, Continue all home medications except in losartan in the setting of hyperkalemia. #. Deconditioning, daily PT Disposition: Likely back to SNF once infection is cleared VTE Mechanical Devices: Intermittant Pneumatic CD Resuscitation Status: CPR: Attempt Resuscitation Time spent 35min Timoteo Gonzalez MD Jan 03, 2017 15:50
--- NOTE | 2017-01-03 15:56 | NUR ---
Pain pt c/o 7-10/10 back pain. Staggered 2mg IVP morphine and 7.5mg percocet which would bring pts pain down to 4-5/10
[2017-01-03] MEDS ORDERED: Albuterol-Ipratropium 3 mL Inhalation Solution NEB PRN (16:05)
--- NOTE | 2017-01-03 18:39 | NUR ---
HTN Pts BP was 204/102 with pulse of 67 while at rest. Recheck 10 minutes later and BP was the same. Denies cp or discomfort. MD notified and awaiting response. Will let NOC nurse know.
[2017-01-03] MEDS ORDERED: Codeine-guaiFENesin 5 mL Syrup PO PRN (19:35)
[2017-01-03] MEDS: Codeine-guaiFENesin 10 mL Syrup PO PRN (20:11)
[2017-01-03] MEDS: Insulin GLARgine 100 Unit/mL Syringe SUBQ SCH (21:43)
[2017-01-04] VITALS (10 sets, daily range): BP systolic 149–183; BP diastolic 80–96; PULSE 80–99; RESP 16–20; O2SAT 89–94
[2017-01-04] MEDS: Codeine-guaiFENesin 10 mL Syrup PO PRN ×4 (04:10→21:09)
[2017-01-04] MEDS: oxyCODONE-Acetamin 5-325 mg Tablet PO PRN ×2 (05:25→13:04)
--- NOTE | 2017-01-04 06:29 | NUR ---
Cough/Pain pt reports of severe pain when coughing. Controlled with PRN morphine. Mild Fever last night alleviated with Tylenol and percocet. Has been pleasant and cooperative with care. HS meds administered as scheduled.
[2017-01-04 06:41] LABS: Magnesium 1.3 mg/dL (1.6-2.6); Phosphorus 3.9 mg/dL (2.5-4.9)
[2017-01-04 06:43] LABS: BASOPHILS % (AUTO) 0.8 % (0-3); EOSINOPHILS % (AUTO) 5.4 % (0-5); MONOCYTES % (AUTO) 16.8 % (4-12); Mean Corpuscular Hemoglobin 28.8 pg (27.0-35.0); Mean Corpuscular Volume 95.7 fL (81-100); NEUTROPHILS % (AUTO) 37.7 % (40-74); Platelet Count 151 bil/L (150-400)
[2017-01-04] MEDS: 0.9% Sodium Chloride 1,000 ML IV SCH (07:47)
[2017-01-04] MEDS: Ertapenem Inj 1,000 MG in 0.9% Sodium Chloride 50 ML IV SCH (07:50)
[2017-01-04] MEDS: Venlafaxine XR 75 mg ER24 Capsule PO SCH (07:52)
[2017-01-04] MEDS: Insulin LISPRO 300 Unit/3 mL Inj SUBQ SCH ×4 (07:53→20:50)
--- NOTE | 2017-01-04 10:40 | NUR ---
Social Work-continued dc planning/ multidisciplinary rounds: Data:EMR Reviewed. Pt is on day 3 of hospitalization for UTI per H&P. Per MD, pt will likely be here another 2-3 more days. Pt to have repeat chest x-ray today. Pt still remains on IV abx. Unclear at this time if pt will need abx at discharge. Pt came to the hospital from [facility] and if she needs IV abx she will return to [facility]. If pt does not need IV abx, pt anticipates to return home. PT has cleared pt for home. Paperwork placed in the chart. SW will continue to follow. Assessment:SNF vs home. Plan:Pt to either discharge back to [facility] from continued IV abx vs return home if no abx needs. SW will continue to follow. ONOFRE Mendiola
[2017-01-04] MEDS ORDERED: Magnesium Sulf 4 Gm/100 mL H2O 4 GM in IV Premix 1 EACH IV ONE (13:40)
--- NOTE | 2017-01-04 19:06 | PCM.PNMED ---
Subjective Date of Service Jan 04, 2017 Subjective Patient notes that she is feeling somewhat better recently. I do review the results of her CT scan which did suggest thyroid nodularities which had been noted in the past per patient last checked a bit ago. Patient does have a dry cough currently. Exam Vital Signs Vital Sign - Last Date Time Temp Pulse Resp B/P Pulse Ox O2 Delivery O2 Flow Rate FiO2 01/04/17 13:49 37.1 91 20 157/82 90 Room Air Intake and Output 01/03/17 01/03/17 01/04/17 Cumulative From/Thru 15:00 23:00 07:00 01/01/17 03:37 - 01/04/17 06:14 Intake Total 650 ml 2541 ml 1280 ml 9849 ml Output Total 900 ml 1250 ml 4625 ml Balance -250 ml 1291 ml 1280 ml 5224 ml Intake Oral 650 ml 1436 ml 250 ml 4056 ml IV Total 1105 ml 1030 ml 5793 ml Output Urine Total 900 ml 1250 ml 4625 ml # Voids 2 2 # Bowel Movements 0 Exam Constitutional: Middle-aged female in no acute distress Head: Normocephalic atraumatic Chest: Scant crackles at her bases bilaterally Cor: Regular rate and rhythm S1-S2 Abdomen: Soft nontender bowel sounds present Extremities: No pedal edema Neuro: Alert and oriented 3, motor strength intact bilaterally Lab and Diagnostics Laboratory Tests 72 Hours Test 01/02/17 05:20 01/03/17 05:23 01/04/17 05:30 White Blood Count 10.6th/mm3 (3.8-10.1) 6.6th/mm3 (3.8-10.1) 6.7th/mm3 (3.8-10.1) Red Blood Count 3.28mil/mm3 (3.90-5.20) 3.19mil/mm3 (3.90-5.20) 3.26mil/mm3 (3.90-5.20) Hemoglobin 9.6g/dL (12.0-15.6) 9.1g/dL (12.0-15.6) 9.4g/dL (12.0-15.6) Hematocrit 30.3% (35.0-46.0) 29.9% (35.0-46.0) 31.2% (35.0-46.0) Mean Corpuscular Volume 92.4fL (81-100) 93.7fL (81-100) 95.7fL (81-100) Mean Corpuscular Hemoglobin 29.3pg (27.0-35.0) 28.5pg (27.0-35.0) 28.8pg (27.0-35.0) Mean Corpuscular Hemoglobin Concent 31.7% (32.0-37.0) 30.4% (32.0-37.0) 30.1% (32.0-37.0) Red Cell Distribution Width 14.4% (12.3-15.4) 14.3% (12.3-15.4) 14.3% (12.3-15.4) Platelet Count 326bil/L (150-400) 314bil/L (150-400) 151bil/L (150-400) Neutrophils (%) (Auto) 59.7% (40-74) 36.7% (40-74) 37.7% (40-74) Lymphocytes (%) (Auto) 20.6% (14-46) 38.3% (14-46) 38.8% (14-46) Monocytes (%) (Auto) 16.5% (4-12) 18.9% (4-12) 16.8% (4-12) Eosinophils (%) (Auto) 2.4% (0-5) 4.4% (0-5) 5.4% (0-5) Basophils (%) (Auto) 0.5% (0-3) 1.2% (0-3) 0.8% (0-3) Sodium Level 141mEq/L (134-144) 143mEq/L (134-144) 142mEq/L (134-144) Potassium Level 4.5mEq/L (3.5-5.2) 4.3mEq/L (3.5-5.2) 5.3mEq/L (3.5-5.2) Chloride Level 108mEq/L (97-108) 110mEq/L (97-108) 111mEq/L (97-108) Carbon Dioxide Level 20mmol/L (18-29) 20mmol/L (18-29) 16mmol/L (18-29) Blood Urea Nitrogen 14mg/dL (6-24) 13mg/dL (6-24) 12mg/dL (6-24) Creatinine 0.91mg/dL (0.57-1.00) 0.99mg/dL (0.57-1.00) 0.94mg/dL (0.57-1.00) Estimat Glomerular Filtration Rate 91mL/min (>59) 83mL/min (>59) 88mL/min (>59) Glucose Level 144mg/dL (60-99) 98mg/dL (60-99) 106mg/dL (60-99) Calcium Level 8.4mg/dL (8.5-10.1) 8.3mg/dL (8.5-10.1) 8.3mg/dL (8.5-10.1) Magnesium Level 1.6mg/dL (1.6-2.6) 1.2mg/dL (1.6-2.6) 1.3mg/dL (1.6-2.6) Total Bilirubin 0.2mg/dL (0.0-1.2) 0.2mg/dL (0.0-1.2) 0.2mg/dL (0.0-1.2) Aspartate Amino Transf (AST/SGOT) 31U/L (0-50) 26U/L (0-50) 52U/L (0-50) Alanine Aminotransferase (ALT/SGPT) 28U/L (0-32) 23U/L (0-32) 27U/L (0-32) Alkaline Phosphatase 109U/L (25-150) 101U/L (25-150) 107U/L (25-150) Total Protein 5.2g/dL (6.4-8.4) 4.9g/dL (6.4-8.4) 4.9g/dL (6.4-8.4) Albumin 2.6g/dL (3.4-5.0) 2.6g/dL (3.4-5.0) 2.5g/dL (3.4-5.0) Procalcitonin 0.31ng/mL (0.00-0.08) 0.23ng/mL (0.00-0.08) 0.18ng/mL (0.00-0.08) Thyroid Stimulating Hormone (TSH) 0.865uIU/mL (0.450-4.500) Free Thyroxine 0.88ng/dL (0.82-1.77) Phosphorus Level 3.9mg/dL (2.5-4.9) Result Diagram: 01/04/17 0530 01/04/17 0530 X-Rays, CTs and MRIs PROCEDURE: CT CHEST WITHOUT CONTRAST ([id number]) INDICATIONS: possible pneumonia not visualized on XR TECHNIQUE: Noncontrast 5 mm thick sections acquired from the pulmonary apices to the posterior costophrenic angles. 7 mm thick coronal and sagittal MIP reformats were then acquired. For radiation dose reduction, the following was used: automated exposure control, adjustment of mA and/or kV according to patient size. COMPARISON: [facility], CR, XR CHEST 1VW (PORTABLE), 01/01/2017, 4: 46. FINDINGS: Image quality: Excellent. Lungs and pleura: Mild left greater than right patchy airspace opacity within the bilateral posterior lung bases is present. No pleural effusions or pneumothorax. Central and peripheral airways are patent and normal in caliber. Mediastinum: Heart size is normal. No pericardial effusion. No mediastinal adenopathy by size criteria. Thoracic aorta and central pulmonary arteries are normal in size. Esophagus is normal in caliber. There is a small hiatal hernia. Bones and chest wall: No suspicious bony lesions. No vertebral body compression fractures. No axillary or supraclavicular adenopathy by size criteria. Thyroid gland is suboptimally visualized secondary to spine fusion hardware artifact, but the left lobe appears to contain several low density masses, largest of which is anterior measuring 26 mm.. Abdomen: Visualized upper abdominal solid organs and bowel loops appear normal in the absence of contrast. IMPRESSION: 1. Mild bibasilar atelectasis versus pneumonia. 2. Left thyroid masses, which could be further assessed with ultrasound, if clinically indicated. Dictated by: Yue Servin M.D. on 01/01/2017 at 20:08 Approved by: Yue Servin M.D. on 01/01/2017 at 20:11 Assessment & Plan 56 YO F presenting via EMS from SNF following recent discharge from hospital following UTI with deconditioning, now representing with fever/chills and weakness, concern for recurrent infection acute, active #Possible infectious state, POA, mostly likely PNA although X-ray and chest CT was underwhelming for pneumonia on admission, pt developed more cough with hypoxia, possible UTI given multiple hx of UTI. ruled out infectious colitis with negative stool PCR -pt remained clinically stable, fever curve subsiding down, therefore will continue ertapenem for now -Await final urine culture, ngtd -Continue IVFs at 100cc/hr at this time -as per discussion with Dr Worthy and Dr. Mendes, Ertapenem was restarted -Clinically patient claims she is feeling better but does have obvious dry cough present #Magnesium, POA, possibly due to GI fluid loss with persistent diarrhea, continue to trend, replete as needed chronic, stable, resolved # SIRS, POA, met 3/4+ fever/HR/wbc, probably sepsis on admission, with unclear source of infection, resolved #Hyperkalemia, Cause unclear, ARB was held, patient received INsulin/Glucose and Kayexalate in ER in addition to Calcium Gluconate, initially 6.5, resolved. #Hypertension, Continue all home medications except in losartan in the setting of hyperkalemia. #. Deconditioning, daily PT Disposition: Likely back to SNF once infection is cleared VTE Mechanical Devices: Intermittant Pneumatic CD Resuscitation Status: CPR: Attempt Resuscitation Time spent 30 minutes Zoila Mike MD Jan 04, 2017 19:06
--- NOTE | 2017-01-04 19:13 | DRSVH ---
PROCEDURE: US THYROID SONOGRAM INDICATIONS: thyroid nodules TECHNIQUE: Real-time scanning was performed of the thyroid gland, with image documentation. COMPARISON: Outside examination dated 08/10/15 (work sheet only). FINDINGS: Right: Thyroid lobe measures 4.5 x 2.1 x 2.2 cm. 1.5 x 1.5 x 0.8 cm predominately solid hypoechoic nodule with smooth margins in the interpolar region, decreased in size since the prior study. Additio nal, new 1.7 x 1.4 x 1.1 cm, solid hypoechoic ill-defined margin nodule in the lower pole. 0.9 x 0.7 x 0.7 cm dominant solid hypoechoic smooth margin nodule in the lower pole Left: Thyroid lobe measures 5.5 x 3.0 x 3.1 cm. there is a new 2.3 x 1.9 x 0.9 cm, solid hypoechoic smooth margin nodule in the upper pole. 3.8 x 3.0 x 2.7 cm, solid hypoechoic nodule with smooth alyson ins in the interpolar region, grossly unchanged Isthmus: 4 mm thick. IMPRESSION: Multiple bilateral thyroid nodules as detailed above. Depending on the FNA status the prior studies ( which is unknown) ultrasound -guided FNA of the largest new nodule on the left and right could be per formed as clinically warranted. Please correlate clinically and with any prior FNA results. Dictated by: Palmer Sadler M.D. on 01/04/2017 at 19:05 Approved by: Palmer Sadler M.D. on 01/04/2017 at 19:11
[2017-01-04] MEDS: Insulin GLARgine 100 Unit/mL Syringe SUBQ SCH (21:08)
[2017-01-05] VITALS (12 sets, daily range): BP systolic 143–182; BP diastolic 78–103; PULSE 79–88; RESP 16–20; O2SAT 92–96
--- NOTE | 2017-01-05 00:15 | NUR ---
TRANSFER Report received from Elyssa Hatch on [facility]. Pt going to 249-2. Awaiting pt. Addendum: 01/05/17 at 0026 by NUZHAT CONKLIN RN Pt arrived at 0026.
--- NOTE | 2017-01-05 00:45 | NUR ---
[place] [facility] [place] sat decreased to 89% while sleeping, placed pt on 1L O2, oxygen sat increased to 94%. Will continue to monitor oxygen sat. [place] [facility] [place] at 0030. Pt transferred in bed with belongings. Report given to ROSEMARY Gill prior to transfer.
[2017-01-05] MEDS: Codeine-guaiFENesin 10 mL Syrup PO PRN ×6 (01:02→22:36)
[2017-01-05] MEDS: 0.9% Sodium Chloride 1,000 ML IV SCH ×2 (01:03→03:10)
--- NOTE | 2017-01-05 01:48 | NUR ---
BP BP 175/95. Rechecked half hour later, 179/99. Paged Dr. Wang "BP 179/99 asymptomatic. No PRNs ordered, has not received any PRNs in this admission for HTN. NS at 100cc/hr." Awaiting orders.
[2017-01-05] MEDS: oxyCODONE-Acetamin 5-325 mg Tablet PO PRN ×3 (07:27→17:21)
[2017-01-05] MEDS: Insulin LISPRO 300 Unit/3 mL Inj SUBQ SCH ×4 (07:29→21:12)
[2017-01-05] MEDS: Venlafaxine XR 75 mg ER24 Capsule PO SCH (09:01)
[2017-01-05] MEDS: Ertapenem Inj 1,000 MG in 0.9% Sodium Chloride 50 ML IV SCH (09:34)
--- NOTE | 2017-01-05 12:02 | NUR ---
Social Work- Readiness for Discharge/Multidisciplinary Rounds Data: EMR reviewed. Pt is on day 4 of hospitalization for UTI, SIRS. Pt discussed in rounds. MD states that pt likely has pneumonia and is being treated with IV ertapenem at this time. Pt may be fluid overloaded. Pt has been on 1L O2 in the hospital. MD anticipates pt will be able to go home at discharge with PO abx, maybe tomorrow. No discharge needs identified in rounds. SW will continue to follow. Assessment: Pt who has [employer] caregiving at home and will likely return home at D/C Plan: Pt will likely return home at D/C with [employer] caregiving. No discharge needs identified in rounds. SW will continue to follow. ONOFRE Murray
--- NOTE | 2017-01-05 16:22 | PCM.PNMED ---
Subjective Date of Service Jan 05, 2017 Subjective Patient feels like as far as respiratory status she is doing better. She is somewhat anxious to get back home. However she still is using IV morphine for lower back pain. Exam Vital Signs Vital Sign - Last Date Time Temp Pulse Resp B/P Pulse Ox O2 Delivery O2 Flow Rate FiO2 01/05/17 14:13 36.5 79 16 143/87 93 Nasal Cannula 2.00 Intake and Output 01/04/17 01/04/17 01/05/17 Cumulative From/Thru 15:00 23:00 07:00 01/01/17 03:37 - 01/04/17 19:15 Intake Total 2216 ml 55193 ml Output Total 850 ml 5475 ml Balance 1366 ml 6590 ml Intake Oral 1300 ml 5356 ml IV Total 916 ml 6709 ml Output Urine Total 850 ml 5475 ml # Voids 2 # Bowel Movements 1 1 Exam Constitutional: Middle-aged female in no acute distress but does have a dry cough Head: Normocephalic atraumatic Chest: Some scattered rhonchi posteriorly Cor: Regular rate and rhythm S1-S2 Abdomen: Soft nontender bowel sounds present Extremities: No pedal edema Neuro: Alert and oriented 3, motor strength is intact bilaterally IVs and Medications Medications Reviewed: Medications were reviewed in detail Lab and Diagnostics Laboratory Tests 72 Hours Test 01/03/17 05:23 01/04/17 05:30 White Blood Count 6.6th/mm3 (3.8-10.1) 6.7th/mm3 (3.8-10.1) Red Blood Count 3.19mil/mm3 (3.90-5.20) 3.26mil/mm3 (3.90-5.20) Hemoglobin 9.1g/dL (12.0-15.6) 9.4g/dL (12.0-15.6) Hematocrit 29.9% (35.0-46.0) 31.2% (35.0-46.0) Mean Corpuscular Volume 93.7fL (81-100) 95.7fL (81-100) Mean Corpuscular Hemoglobin 28.5pg (27.0-35.0) 28.8pg (27.0-35.0) Mean Corpuscular Hemoglobin Concent 30.4% (32.0-37.0) 30.1% (32.0-37.0) Red Cell Distribution Width 14.3% (12.3-15.4) 14.3% (12.3-15.4) Platelet Count 314bil/L (150-400) 151bil/L (150-400) Neutrophils (%) (Auto) 36.7% (40-74) 37.7% (40-74) Lymphocytes (%) (Auto) 38.3% (14-46) 38.8% (14-46) Monocytes (%) (Auto) 18.9% (4-12) 16.8% (4-12) Eosinophils (%) (Auto) 4.4% (0-5) 5.4% (0-5) Basophils (%) (Auto) 1.2% (0-3) 0.8% (0-3) Sodium Level 143mEq/L (134-144) 142mEq/L (134-144) Potassium Level 4.3mEq/L (3.5-5.2) 5.3mEq/L (3.5-5.2) Chloride Level 110mEq/L (97-108) 111mEq/L (97-108) Carbon Dioxide Level 20mmol/L (18-29) 16mmol/L (18-29) Blood Urea Nitrogen 13mg/dL (6-24) 12mg/dL (6-24) Creatinine 0.99mg/dL (0.57-1.00) 0.94mg/dL (0.57-1.00) Estimat Glomerular Filtration Rate 83mL/min (>59) 88mL/min (>59) Glucose Level 98mg/dL (60-99) 106mg/dL (60-99) Calcium Level 8.3mg/dL (8.5-10.1) 8.3mg/dL (8.5-10.1) Magnesium Level 1.2mg/dL (1.6-2.6) 1.3mg/dL (1.6-2.6) Total Bilirubin 0.2mg/dL (0.0-1.2) 0.2mg/dL (0.0-1.2) Aspartate Amino Transf (AST/SGOT) 26U/L (0-50) 52U/L (0-50) Alanine Aminotransferase (ALT/SGPT) 23U/L (0-32) 27U/L (0-32) Alkaline Phosphatase 101U/L (25-150) 107U/L (25-150) Total Protein 4.9g/dL (6.4-8.4) 4.9g/dL (6.4-8.4) Albumin 2.6g/dL (3.4-5.0) 2.5g/dL (3.4-5.0) Procalcitonin 0.23ng/mL (0.00-0.08) 0.18ng/mL (0.00-0.08) Phosphorus Level 3.9mg/dL (2.5-4.9) Result Diagram: 01/04/1752901/04/17529 X-Rays, CTs and MRIs PROCEDURE: CT CHEST WITHOUT CONTRAST ([id number]) INDICATIONS: possible pneumonia not visualized on XR TECHNIQUE: Noncontrast 5 mm thick sections acquired from the pulmonary apices to the posterior costophrenic angles. 7 mm thick coronal and sagittal MIP reformats were then acquired. For radiation dose reduction, the following was used: automated exposure control, adjustment of mA and/or kV according to patient size. COMPARISON: [facility], CR, XR CHEST 1VW (PORTABLE), 01/01/2017, 4: 46. FINDINGS: Image quality: Excellent. Lungs and pleura: Mild left greater than right patchy airspace opacity within the bilateral posterior lung bases is present. No pleural effusions or pneumothorax. Central and peripheral airways are patent and normal in caliber. Mediastinum: Heart size is normal. No pericardial effusion. No mediastinal adenopathy by size criteria. Thoracic aorta and central pulmonary arteries are normal in size. Esophagus is normal in caliber. There is a small hiatal hernia. Bones and chest wall: No suspicious bony lesions. No vertebral body compression fractures. No axillary or supraclavicular adenopathy by size criteria. Thyroid gland is suboptimally visualized secondary to spine fusion hardware artifact, but the left lobe appears to contain several low density masses, largest of which is anterior measuring 26 mm.. Abdomen: Visualized upper abdominal solid organs and bowel loops appear normal in the absence of contrast. IMPRESSION: 1. Mild bibasilar atelectasis versus pneumonia. 2. Left thyroid masses, which could be further assessed with ultrasound, if clinically indicated. Dictated by: Yue Servin M.D. on 01/01/2017 at 20:08 Approved by: Yue Servin M.D. on 01/01/2017 at 20:11 Date of Service: 01/04/17 1630 PROCEDURE: US THYROID SONOGRAM INDICATIONS: thyroid nodules TECHNIQUE: Real-time scanning was performed of the thyroid gland, with image documentation. COMPARISON: Outside examination dated 08/10/15 (work sheet only). FINDINGS: Right: Thyroid lobe measures 4.5 x 2.1 x 2.2 cm. 1.5 x 1.5 x 0.8 cm predominately solid hypoechoic nodule with smooth margins in the interpolar region, decreased in size since the prior study. Additional, new 1.7 x 1.4 x 1.1 cm, solid hypoechoic ill-defined margin nodule in the lower pole. 0.9 x 0.7 x 0.7 cm dominant solid hypoechoic smooth margin nodule in the lower pole Left: Thyroid lobe measures 5.5 x 3.0 x 3.1 cm. there is a new 2.3 x 1.9 x 0.9 cm, solid hypoechoic smooth margin nodule in the upper pole. 3.8 x 3.0 x 2.7 cm, solid hypoechoic nodule with smooth margins in the interpolar region, grossly unchanged Isthmus: 4 mm thick. IMPRESSION: Multiple bilateral thyroid nodules as detailed above. Depending on the FNA status the prior studies (which is unknown) ultrasound -guided FNA of the largest new nodule on the left and right could be performed as clinically warranted. Please correlate clinically and with any prior FNA results. Dictated by: Palmer Sadler M.D. on 01/04/2017 at 19:05 Approved by: Palmer Sadler M.D. on 01/04/2017 at 19:11 Cardiac Echo Impressions Date of Service: 01/01/[address] [address] Echocardiogram Report Name: XOCHILT RAMIREZ KStudy Gustavo e: 01/01/2017 Height: 64 in Hospital Exam Location: [facility] Weight: 160 lb Gender: Female BSA: 1.8 m2 : 1960 Age: 56 yrs BP: 122/ 50 mmHg Reason For Study: Murmur, vegetations Ordering Physician: Baltazar Palacios Performed By: Max Kumar Referring Physician: ARMANI LOMBARDO Interpretation Summary There is mild-moderate concentric left ventricular hypertrophy. Left ventricular systolic function is normal without focal wall motion abnormalities. The ejection fraction is estimated to be 60-65%. Assessment of diastolic parameters indicates a relaxation abnormality of the left ventricle, consistent with normal filling pressures. The right ventricle is normal in size, thickness and function. Pulmonary artery pressures cannot be estimated because of the lack of a measurable TR jet velocity. The left atrial size is normal. Right atrial size is normal. There is mild aortic valve sclerosis. There is discrete nodular thickening of the left coronary cusp. No aortic regurgitation is present. There is no other significant valvular heart disease. The ascending aorta is mildly enlarged. No gross evidence for endocarditis. If highly suspicious, then cosider ABA. Procedure: A two-dimensional transthoracic echocardiogram with color flow and Doppler was performed. The study quality was technically adequate. There is no prior echocardiogram noted for this patient. The patient was in normal sinus rhythm during the exam. Left Ventricle: The left ventricle is normal in size. There is mild- moderate concentric left ventricular hypertrophy. Left ventricular systolic function is normal without focal wall motion abnormalities. The ejection fraction is estimated to be 60-65%. Assessment of diastolic parameters indicates a relaxation abnormality of the left ventricle, consistent with normal filling pressures. Right Ventricle: The right ventricle is normal in size, thickness and function. Atria: The left atrial size is normal. Right atrial size is normal. The interatrial septum is intact with no evidence for an atrial septal defect. Mitral Valve: There is moderate mitral annular calcification. The mitral valve leaflets appear mildly thickened, but open well. There is no mitral regurgitation noted. Aortic Valve: The aortic valve is trileaflet. There is mild aortic valve sclerosis. The aortic valve opens well. There is discrete nodular thickening of the left coronary cusp. No aortic regurgitation is present. Tricuspid Valve: The tricuspid valve is normal. Pulmonary artery pressures cannot be estimated because of the lack of a measurable TR jet velocity. There is a trace or physiologic amount of tricuspid regurgitation. Pulmonic Valve: The pulmonic valve leaflets are thin and pliable; valve motion is normal. There is no pulmonic valvular regurgitation. There is no other significant valvular heart disease. Great Vessels: The aortic root is normal size. The ascending aorta is mildly enlarged. The pulmonary artery is normal size. The IVC is of normal diameter and collapses greater than 50% with a sniff. This suggests a low right atrial pressure of 3 mm Hg. Pericardium/ Pleura There is no pericardial effusion. There is no pleural effusion. MMode/2D Measurements & Calculations LVIDd: 4.0 cm RA long axis LVOT diam: 2.2 cm LVIDs: 2.6 cm LA A2 area: 15.4 cm AoV Opening FS: 36.5 % LA A4 area: 20.8 cm RA area EPSS: 0.51 cm LA length (vol) Ao root diam IVSd: 1.2 cm : 10.9 cm LVPWd: 1.3 cm LA vol: 50.7 ml RA vol asc Aorta Diam LA vol index : 23.6 ml RA Ao Arch Diam (Prox : 13.3 mm2 Trans): 3.0 cm IVC diam: 1.8 cm LV [place]. diameter/BSA LV sys. diameter/BSA TAPSE: 2.2 cm (cm/m^2): 2.3 (cm/m^2): 1.4 Doppler Measurements & Calculations Ao V2 max MV E max raymond MV E/A: 0.66 PA V2 max : 154.2 cm/sec : 70.9 cm/sec Med Peak E' Raymond : 107.7 cm/sec Ao max P.5 mmHg MV A max raymond PA mean PG Ao mean P.7 mmHg : 106.6 cm/sec E/E' med: 11.3 : 2.1 mmHg LVOT Max Raymond Lat Peak E' Raymond : 93.0 cm/sec E/E' lat: 10.6 ENIO(I,D): 2.3 cm E/e' average sev ratio: 0.63 MV dec time: 0.18 sec Ao V2 mean LV V1 max PG PA V2 mean : 101.5 cm/sec : 69.8 cm/sec Ao V2 VTI: 26.6 cmLV V1 VTI: 16.8 cm PA pr(Accel) : 36.6 mmHg ENIO(V,D): 2.2 cm2 ENIO indexed to BSA (cm^2/m^2): 1.3 Reading Physician:PM Assessment & Plan 56 YO F presenting via EMS from SNF following recent discharge from hospital following UTI with deconditioning, now representing with fever/chills and weakness, concern for recurrent infection acute, active #Possible infectious state, POA, mostly likely PNA although X-ray and chest CT was underwhelming for pneumonia on admission, pt developed more cough with hypoxia, possible UTI given multiple hx of UTI. ruled out infectious colitis with negative stool PCR -pt remained clinically stable, fever curve subsiding down, therefore will continue ertapenem for now -Await final urine culture, ngtd -Continue IVFs at 100cc/hr at this time -as per discussion with Dr Worthy and Dr. Mendes, Ertapenem was restarted -Clinically patient claims she is feeling better but does have obvious dry cough present -We will go ahead and stop her IV morphine when necessary chronic lower back pain and see if maybe he can get her discharged in the next 1-2 days with by mouth Augmentin. Thyroid nodularities seen on CT scan, chronic, present on admission -She had also thyroid ultrasound done this admission. Recommend follow-up with outpatient physician to determine whether needs fine needle aspiration or not as they will need to review records regarding previous size of the thyroid nodules . #Magnesium, POA, possibly due to GI fluid loss with persistent diarrhea, continue to trend, replete as needed chronic, stable, resolved # SIRS, POA, met 3/4+ fever/HR/wbc, probably sepsis on admission, with unclear source of infection, resolved #Hyperkalemia, Cause unclear, ARB was held, patient received INsulin/Glucose and Kayexalate in ER in addition to Calcium Gluconate, initially 6.5, resolved. #Hypertension, Continue all home medications except in losartan in the setting of hyperkalemia. #. Deconditioning, daily PT Disposition: Likely back to SNF once infection is cleared VTE Mechanical Devices: Intermittant Pneumatic CD Resuscitation Status: CPR: Attempt Resuscitation Time spent 30 minutes Zoila Mike MD Jan 05, 2017 16:22
--- NOTE | 2017-01-05 18:30 | NUR ---
Blood Pressure Hospitalist paged regarding patient's high blood pressure. Taken several times in both arms. Patient resting in bed, no s/s of distress.
[2017-01-05] MEDS: Insulin GLARgine 100 Unit/mL Syringe SUBQ SCH (21:11)
--- NOTE | 2017-01-05 21:27 | NUR ---
HTN Paged Wire Web Worker Doc because patient continued to have HTN. He called back with order for 10 Mg dose of Norvasc.
[2017-01-06] VITALS (7 sets, daily range): BP systolic 99–166; BP diastolic 68–82; PULSE 76–111; RESP 16–18; O2SAT 93–95
--- NOTE | 2017-01-06 01:11 | NUR ---
HTN Patient B/P was still a little high after Norvas but has been coming down to 124/68 at 0030.
[2017-01-06] MEDS: Codeine-guaiFENesin 10 mL Syrup PO PRN ×2 (06:03→13:08)
--- NOTE | 2017-01-06 06:09 | NUR ---
B/P Patient B/P continues to be stable as well as her other VS although a little tachycardic.She is to be discharged today home.She is in good spirits and ready to go home.
[2017-01-06] MEDS ORDERED: LEVO750T9 PO (07:17)
[2017-01-06] MEDS ORDERED: AMLO5TAB2 PO (07:17)
[2017-01-06] MEDS ORDERED: MAGN400C PO (07:18)
[2017-01-06] MEDS ORDERED: GUAI10LI PO (07:19)
[2017-01-06] MEDS ORDERED: BENZ100C8 PO (07:19)
[2017-01-06] MEDS: Insulin LISPRO 300 Unit/3 mL Inj SUBQ SCH ×2 (08:00→13:25)
[2017-01-06] MEDS: Venlafaxine XR 75 mg ER24 Capsule PO SCH (08:07)
[2017-01-06] MEDS: Ertapenem Inj 1,000 MG in 0.9% Sodium Chloride 50 ML IV SCH (08:10)
[2017-01-06] MEDS: oxyCODONE-Acetamin 5-325 mg Tablet PO PRN (09:46)
[2017-01-06] MEDS ORDERED: LOSA25TA21 PO (10:28)
--- NOTE | 2017-01-06 11:02 | PCM.DIMED ---
Eusebia tableDate of Service Jan 06, 2017 Dates of Hospitalization Jan 01, 2017 at 09:32 Discharge Diagnosis Discharge Diagnosis acute dx Sepsis secondary to probable community acquired pneumonia. Multiple non-functioning thyroid nodules chronic hypomagnesemia chronic dx Hypertension, Medication Instructions Additional med instructions Please continue Levofloxacin 750mg for 9days, anitibiotics for pneumonia you can use Robitussin cough syrup 10ml as needed, Benzonatate three times per day as needed for cough, Please note that your regimen changed Take Losartan 25mg once a day instead of twice a day, it was changed due to high potassium level Take Magnesium supplement twice a day instead of once a day due to low magnesium Diet Discharge Diet: No restrictions Activity Discharge Activity: No restrictions Call your provider Call your provider for: Shortness of breath, Chest pain Patient Instructions Patient Instructions You were hospitalized with symptoms concerning for systemic infection. You were treated for pneumonia with strong iv antibiotics and symptoms improved significantly Follow-up plan Please follow up with your doctor in 2weeks Follow-up Provider: Shasha Sharif PA-C Follow-up with PCP in: 2 weeks
--- NOTE | 2017-01-06 12:52 | NUR ---
Vital signs Pt BP at 1210 99/70. asymptomatic. Pt reports that when she sits up this is what happens. Encouraged to keep a log at home and bring to f/up appt.
--- NOTE | 2017-01-06 12:53 | NUR ---
Social Work: Discharge D: Pt discussed in multidisciplinary rounds. Pt is medically stable for discharge home. Pt was previously at [facility] for rehab however no longer meeting the criteria for SNF stay. PT recommendation is for home health. JUSTICE PROFESSOR met with the patient at bedside to discuss HH recommendation. She does not feel that she requires this at this time. She states that she has [employer] caregivers at home and feels that she has good support at home. A: Pt who lives at home with her spouse and has [employer] caregiving P: Anticipate pt to discharge home with resumed [employer] Caregiving. ONOFRE Reeder
--- NOTE | 2017-01-06 16:35 | NUR ---
Discharge Reviewed DC instruction with patient and family. Answered all questions, stated understanding. Pt taken out in w/ch to home in private auto with family. All belongings taken.
--- NOTE | 2017-01-06 16:50 | PCM.DC.MED ---
Discharge Summary Date of Service Jan 06, 2017 Dates of Hospitalization Date of Hospital Admission Jan 01, 2017 at 09:32 Date of Discharge: Jan 06, 2017 Providers: Admitting Physician: Pieter Blackburn DO Primary Care Physician: Shasha Sharif PA-C Attending Physician: Timoteo Farr MD Diagnosis at Time of Discharge Diagnosis at Time of Discharge acute dx Sepsis secondary to probable community acquired pneumonia. Multiple non-functioning thyroid nodules chronic hypomagnesemia hyperkalemia likely mediation induced chronic dx Hypertension, Procedures XRay, CTs & MRIs PROCEDURE: CT CHEST WITHOUT CONTRAST ([id number]) INDICATIONS: possible pneumonia not visualized on XR TECHNIQUE: Noncontrast 5 mm thick sections acquired from the pulmonary apices to the posterior costophrenic angles. 7 mm thick coronal and sagittal MIP reformats were then acquired. For radiation dose reduction, the following was used: automated exposure control, adjustment of mA and/or kV according to patient size. COMPARISON: [facility], CR, XR CHEST 1VW (PORTABLE), 01/01/2017, 4: 46. FINDINGS: Image quality: Excellent. Lungs and pleura: Mild left greater than right patchy airspace opacity within the bilateral posterior lung bases is present. No pleural effusions or pneumothorax. Central and peripheral airways are patent and normal in caliber. Mediastinum: Heart size is normal. No pericardial effusion. No mediastinal adenopathy by size criteria. Thoracic aorta and central pulmonary arteries are normal in size. Esophagus is normal in caliber. There is a small hiatal hernia. Bones and chest wall: No suspicious bony lesions. No vertebral body compression fractures. No axillary or supraclavicular adenopathy by size criteria. Thyroid gland is suboptimally visualized secondary to spine fusion hardware artifact, but the left lobe appears to contain several low density masses, largest of which is anterior measuring 26 mm.. Abdomen: Visualized upper abdominal solid organs and bowel loops appear normal in the absence of contrast. IMPRESSION: 1. Mild bibasilar atelectasis versus pneumonia. 2. Left thyroid masses, which could be further assessed with ultrasound, if clinically indicated. Dictated by: Yue Servin M.D. on 01/01/2017 at 20:08 Approved by: Yue Servin M.D. on 01/01/2017 at 20:11 Date of Service: 01/04/17 1636 PROCEDURE: US THYROID SONOGRAM INDICATIONS: thyroid nodules TECHNIQUE: Real-time scanning was performed of the thyroid gland, with image documentation. COMPARISON: Outside examination dated 08/10/15 (work sheet only). FINDINGS: Right: Thyroid lobe measures 4.5 x 2.1 x 2.2 cm. 1.5 x 1.5 x 0.8 cm predominately solid hypoechoic nodule with smooth margins in the interpolar region, decreased in size since the prior study. Additional, new 1.7 x 1.4 x 1.1 cm, solid hypoechoic ill-defined margin nodule in the lower pole. 0.9 x 0.7 x 0.7 cm dominant solid hypoechoic smooth margin nodule in the lower pole Left: Thyroid lobe measures 5.5 x 3.0 x 3.1 cm. there is a new 2.3 x 1.9 x 0.9 cm, solid hypoechoic smooth margin nodule in the upper pole. 3.8 x 3.0 x 2.7 cm, solid hypoechoic nodule with smooth margins in the interpolar region, grossly unchanged Isthmus: 4 mm thick. IMPRESSION: Multiple bilateral thyroid nodules as detailed above. Depending on the FNA status the prior studies (which is unknown) ultrasound -guided FNA of the largest new nodule on the left and right could be performed as clinically warranted. Please correlate clinically and with any prior FNA results. Dictated by: Palmer Sadler M.D. on 01/04/2017 at 19:05 Approved by: Palmer Sadler M.D. on 01/04/2017 at 19:11 Cardiac Echo Impression Date of Service: 01/01/[address] [place] [address] Echocardiogram Report Name: XOCHILT RAMIREZ KStudy Gustavo e: 01/01/2017 Height: 64 in Hospital Exam Location: [facility] Weight: 160 lb Gender: Female BSA: 1.8 m2 : 1960 Age: 56 yrs BP: 122/ 50 mmHg Reason For Study: Murmur, vegetations Ordering Physician: Baltazar Palacios Performed By: Max Kumar Referring Physician: PIETER BLACKBURN Interpretation Summary There is mild-moderate concentric left ventricular hypertrophy. Left ventricular systolic function is normal without focal wall motion abnormalities. The ejection fraction is estimated to be 60-65%. Assessment of diastolic parameters indicates a relaxation abnormality of the left ventricle, consistent with normal filling pressures. The right ventricle is normal in size, thickness and function. Pulmonary artery pressures cannot be estimated because of the lack of a measurable TR jet velocity. The left atrial size is normal. Right atrial size is normal. There is mild aortic valve sclerosis. There is discrete nodular thickening of the left coronary cusp. No aortic regurgitation is present. There is no other significant valvular heart disease. The ascending aorta is mildly enlarged. No gross evidence for endocarditis. If highly suspicious, then cosider ABA. Procedure: A two-dimensional transthoracic echocardiogram with color flow and Doppler was performed. The study quality was technically adequate. There is no prior echocardiogram noted for this patient. The patient was in normal sinus rhythm during the exam. Left Ventricle: The left ventricle is normal in size. There is mild- moderate concentric left ventricular hypertrophy. Left ventricular systolic function is normal without focal wall motion abnormalities. The ejection fraction is estimated to be 60-65%. Assessment of diastolic parameters indicates a relaxation abnormality of the left ventricle, consistent with normal filling pressures. Right Ventricle: The right ventricle is normal in size, thickness and function. Atria: The left atrial size is normal. Right atrial size is normal. The interatrial septum is intact with no evidence for an atrial septal defect. Mitral Valve: There is moderate mitral annular calcification. The mitral valve leaflets appear mildly thickened, but open well. There is no mitral regurgitation noted. Aortic Valve: The aortic valve is trileaflet. There is mild aortic valve sclerosis. The aortic valve opens well. There is discrete nodular thickening of the left coronary cusp. No aortic regurgitation is present. Tricuspid Valve: The tricuspid valve is normal. Pulmonary artery pressures cannot be estimated because of the lack of a measurable TR jet velocity. There is a trace or physiologic amount of tricuspid regurgitation. Pulmonic Valve: The pulmonic valve leaflets are thin and pliable; valve motion is normal. There is no pulmonic valvular regurgitation. There is no other significant valvular heart disease. Great Vessels: The aortic root is normal size. The ascending aorta is mildly enlarged. The pulmonary artery is normal size. The IVC is of normal diameter and collapses greater than 50% with a sniff. This suggests a low right atrial pressure of 3 mm Hg. Pericardium/ Pleura There is no pericardial effusion. There is no pleural effusion. MMode/2D Measurements & Calculations LVIDd: 4.0 cm RA long axis LVOT diam: 2.2 cm LVIDs: 2.6 cm LA A2 area: 15.4 cm AoV Opening FS: 36.5 % LA A4 area: 20.8 cm RA area EPSS: 0.51 cm LA length (vol) Ao root diam IVSd: 1.2 cm : 10.9 cm LVPWd: 1.3 cm LA vol: 50.7 ml RA vol asc Aorta Diam LA vol index : 23.6 ml RA Ao Arch Diam (Prox : 13.3 mm2 Trans): 3.0 cm IVC diam: 1.8 cm LV [place]. diameter/BSA LV sys. diameter/BSA TAPSE: 2.2 cm (cm/m^2): 2.3 (cm/m^2): 1.4 Doppler Measurements & Calculations Ao V2 max MV E max raymond MV E/A: 0.66 PA V2 max : 154.2 cm/sec : 70.9 cm/sec Med Peak E' Raymond : 107.7 cm/sec Ao max P.5 mmHg MV A max raymond PA mean PG Ao mean P.7 mmHg : 106.6 cm/sec E/E' med: 11.3 : 2.1 mmHg LVOT Max Raymond Lat Peak E' Raymond : 93.0 cm/sec E/E' lat: 10.6 ENIO(I,D): 2.3 cm E/e' average sev ratio: 0.63 MV dec time: 0.18 sec Ao V2 mean LV V1 max PG PA V2 mean : 101.5 cm/sec : 69.8 cm/sec Ao V2 VTI: 26.6 cmLV V1 VTI: 16.8 cm PA pr(Accel) : 36.6 mmHg ENIO(V,D): 2.2 cm2 ENIO indexed to BSA (cm^2/m^2): 1.3 Reading Physician:PM Brief History HPI obtained by Dr. Blackburn on 01/01 Patient is 56-year-old female with past medical history significant for diabetes , hypertension, and recently diagnosed with resistant urinary tract infection treated for 1 week in the hospital with ertapenem and discharged home soon after admitted to skilled nurse facility for rehabilitation. She has been in the rehabilitation facility now for a little more than 1 week at [facility] for recuperation, states she had been doing better up until this morning when she began experiencing sweats and chills. She denies any recurrent dysuria or frequency and she is, but given recent history had concern for infection and presented to emergency department. In ER she was noted to have an elevated temperature in addition to leukocytosis prompting admission for further evaluation and treatment of recurrent infection. Following treatment in the emergency department with fluids and the antibiotics, he felt significantly improved but still concerned about the happenings earlier today. Notes she is still feeling weak, but this had been the case since discharge which is what prompted her admission to fdc facility. Denies any palpitations or chest pains at any point. SHe has had some cough since yesterday evening which is nonproductive, but is not usual for her. Otherwise she has no other acute complaints. Appetite is good. She is stooling normally denies any diarrhea or constipation. Hospital Course 56 YO F presenting via EMS from SNF following recent discharge from hospital following UTI with deconditioning, now representing with fever/chills and weakness, concern for recurrent infection acute dx #Sepsis, SIRS, pt met 3/4+ fever/HR/wbc, probably sepsis on admission, probable source: PNA, resolved with IVF #Probable pneumonia, met criteria for hospital acquired. Although X-ray and chest CT was underwhelming for pneumonia on admission, During the hospital course, pt developed more cough with hypoxia. It's thought that source of infection is likely from her lungs. As per discussion with Dr Worthy and Dr. Mendes over the phone, Ertapenem was started for presumed UTI based on previous MDR UTI. However finial UCX was negative, also ruled out infectious colitis with negative stool PCR. Pt received for 5days of Ertapenem, then given the impression of PNA, switched to Levaquin. Wbc trended down and fever curve subsided. patient clinically responded to tx. #Multiple non-functioning thyroid nodules pt previously had benign nodules, biopsy proven. Pt was incidentally found multiple nodules on chest CT. It's unclear it was interval progression from prior ones. labs showed euthyroid state. Patient was asked to follow up the surgeon who performed biopsy in the past. #Chronic hypomagnesemia, Likely GI fluid loss with diarrhea and possible renal loss, pt was repleted mg continously, plan is to increase MgSo4 from daily to bid on d/c #Hyperkalemia, likely due to ARB, patient received INsulin/Glucose and Kayexalate in ER in addition to Calcium Gluconate, initially 6.5, resolved as ARB was being held. then resumed daily losartan, K level stayed stable. chronic dx #Hypertension, amlodipine 10mg newly started in house due to persistent high BP Exam Vital Signs (Last) Date Time Temp Pulse Resp B/P Pulse Ox O2 Delivery O2 Flow Rate FiO2 01/06/17 13:32 37.5 88 16 135/69 93 Room Air 01/06/17 01:03 2.00 Exam pt was examined on the day of d/c Test 01/01/17 04:25 01/01/17 05:45 01/02/17 05:20 01/04/17 05:30 Hold Purple Top Tube Received (Received) Hold Blue Top Tube Received (Received) Lactic Acid Level 1.7mmol/L (0.4-2.0) Troponin T 0.010ug/L (0.0-0.011) Lipase 65U/L (13-60) Hold Red Top Tube Received (Received) Hold [place] Top Tube Received (Received) Hold [place] Top Tube Received (Received) Urine Color Straw (YELLOW) Urine Appearance Slightly cloudy Urine pH 5.5 (5.0-8.0) Urine Specific [place] 1.011 (1.003-1.035) Urine Protein 100mg/dL (NEG,TRACE) Urine Glucose (UA) Negativemg/dL (NEGATIVE) Urine Ketones Negativemg/dL (NEGATIVE) Urine Occult Blood Small (NEGATIVE) Urine Nitrite Negative (NEGATIVE) Urine Bilirubin Negative (NEGATIVE) Urine Urobilinogen Normalmg/dL (NORMAL) Urine Leukocyte Esterase Negative (NEGATIVE) Urine RBC 0-2/hpf (0-2) Urine WBC 0-5/hpf (0-5) Urine Epithelial Cells Few/hpf (NONE-MOD) Urine Crystals Amorphous urates (NONE Urine Bacteria Few/hpf (NONE-FEW) Urine Hyaline Casts None/lpf (NONE) Urine Granular Casts None seen (NONE SEEN) Urine Waxy Casts None seen (NONE SEEN) Urine Red Blood Cell Casts None seen (NONE SEEN) Urine White Blood Cell Casts None seen (NONE SEEN) Urine Mucus None seen (None Seen) Urine Trichomonas None seen (NONE SEEN) Urine Yeast None (NONE SEEN) Urinalysis Comment None Urine Culture Reflexed Not indicated Urine Legionella pneumophilia Ag Negative (Negative) Thyroid Stimulating Hormone (TSH) 0.865uIU/mL (0.450-4.500) Free Thyroxine 0.88ng/dL (0.82-1.77) White Blood Count 6.7th/mm3 (3.8-10.1) Red Blood Count 3.26mil/mm3 (3.90-5.20) Hemoglobin 9.4g/dL (12.0-15.6) Hematocrit 31.2% (35.0-46.0) Mean Corpuscular Volume 95.7fL (81-100) Mean Corpuscular Hemoglobin 28.8pg (27.0-35.0) Mean Corpuscular Hemoglobin Concent 30.1% (32.0-37.0) Red Cell Distribution Width 14.3% (12.3-15.4) Platelet Count 151bil/L (150-400) Neutrophils (%) (Auto) 37.7% (40-74) Lymphocytes (%) (Auto) 38.8% (14-46) Monocytes (%) (Auto) 16.8% (4-12) Eosinophils (%) (Auto) 5.4% (0-5) Basophils (%) (Auto) 0.8% (0-3) Sodium Level 142mEq/L (134-144) Potassium Level 5.3mEq/L (3.5-5.2) Chloride Level 111mEq/L (97-108) Carbon Dioxide Level 16mmol/L (18-29) Blood Urea Nitrogen 12mg/dL (6-24) Creatinine 0.94mg/dL (0.57-1.00) Estimat Glomerular Filtration Rate 88mL/min (>59) Glucose Level 106mg/dL (60-99) Calcium Level 8.3mg/dL (8.5-10.1) Phosphorus Level 3.9mg/dL (2.5-4.9) Magnesium Level 1.3mg/dL (1.6-2.6) Total Bilirubin 0.2mg/dL (0.0-1.2) Aspartate Amino Transf (AST/SGOT) 52U/L (0-50) Alanine Aminotransferase (ALT/SGPT) 27U/L (0-32) Alkaline Phosphatase 107U/L (25-150) Total Protein 4.9g/dL (6.4-8.4) Albumin 2.5g/dL (3.4-5.0) Procalcitonin 0.18ng/mL (0.00-0.08) Discharge Medications Discharge Medications Amlodipine (Amlodipine) 5 Mg Tablet 10 MG PO DAILY Prescribed by: TIMOTEO FARR MD Gabapentin (Gabapentin) 600 Mg Tablet 600 MG PO TID (Reported) Hydrochlorothiazide (Hydrochlorothiazide) 12.5 Mg Tablet 12.5 MG PO DAILY ( Reported) Insulin Glargine,Hum.rec.anlog ([address]enn[address]) 300 Unit/Ml (1.5 Ml) Insuln.pen 20 UNITS SC HS (Reported) Levofloxacin (Levaquin) 750 Mg Tablet 750 MG PO DAILY Prescribed by: TIMOTEO FARR MD Losartan Potassium (Losartan Potassium) 25 Mg Tablet 25 MG PO DAILY Prescribed by: TIMOTEO FARR MD Lovastatin (Lovastatin) 20 Mg Tablet 20 MG PO DAILY (Reported) Magnesium Oxide (Magnesium) 400 Mg Capsule 400 MG PO BID Prescribed by: TIMOTEO FARR MD Nortriptyline (Nortriptyline) 75 Mg Capsule 75 MG PO DAILY (Reported) Sitagliptin Phos (Januvia) 100 Mg Tablet 50 MG PO DAILY (Reported) Tizanidine (Tizanidine) 4 Mg Tablet 4 MG PO TID (Reported) Trazodone (Trazodone) 50 Mg Tablet 50-100 MG PO HS (Reported) Venlafaxine ER (Venlafaxine ER) 150 Mg Cap.er.24h 150 MG PO DAILY (Reported) hydrOXYzine Hcl (HydrOXYzine Hcl) 25 Mg Tablet 50 MG PO HS (Reported) As needed Acetaminophen (Acetaminophen) 325 Mg Tablet 650 MG PO Q4H PRN PRN For Fever ( Reported) Benzonatate (Benzonatate) 100 Mg Capsule 100 MG PO TID PRN PRN For Cough Prescribed by: TIMOTEO FARR MD Guaifenesin/Codeine Phosphate (Guaifenesin-Codeine Syrup) 10 Ml Liquid 5 ML PO Q4H PRN PRN For Cough Prescribed by: TIMOTEO FARR MD oxyCODONE-Acetaminophen 7.5-325 mg (oxyCODONE-Acetaminophen 7.5-325 mg) 1 Each Tablet 1 TAB PO TID PRN PRN For Pain (Reported) Additional med instructions Please continue Levofloxacin 750mg for 9days, anitibiotics for pneumonia you can use Robitussin cough syrup 10ml as needed, Benzonatate three times per day as needed for cough, Please note that your regimen changed Take Losartan 25mg once a day instead of twice a day, it was changed due to high potassium level Take Magnesium supplement twice a day instead of once a day due to low magnesium Followup Plan Disposition: home Follow-up plan Please follow up with your doctor in 2weeks Discharge Diet: No restrictions Discharge Activity: No restrictions Patient Instructions You were hospitalized with symptoms concerning for systemic infection. You were treated for pneumonia with strong iv antibiotics and symptoms improved significantly Follow-up Provider: Shasha Sharif PA-C Follow-up with PCP in: 2 weeks Time spent 65min Timoteo Farr MD Jan 06, 2017 16:37
== END 2017-01-06 14:30 | disposition home or self-care (01) | DRG 871 ==
LOC: SED 03:31 → MPC 09:32 → MOC 01-05 00:25
PROVIDERS: ADMIT Family Medicine; ATTEND Family Medicine
DX: A41.9 Sepsis, unspecified organism (principal); J18.9 Pneumonia, unspecified organism; E83.42 Hypomagnesemia; E87.5 Hyperkalemia; I10 Essential (primary) hypertension; E11.9 Type 2 diabetes mellitus without complications; Z79.4 Long term (current) use of insulin; Y95 Nosocomial condition; E04.2 Nontoxic multinodular goiter